=== PATIENT | female | born 1965 | race Caucasian/White ===

== ENCOUNTER 2019-09-02 09:21 | Outpatient (CLI) | payer BC, SELFPAY ==
[2019-09-02 10:25] LABS: Alanine Aminotransferase 18 U/L (4-35); Albumin Level 3.9 g/dL (3.5-5.1); Alkaline Phosphatase 106 U/L (38-126); Aspartate Amino Transferase 19 U/L (14-36); Bilirubin,Total 0.4 mg/dL (0.2-1.3); Blood Urea Nitrogen 35 mg/dL (7-17); Calcium 9.3 mg/dL (8.4-10.2); Carbon Dioxide 29 mmol/L (22-30); Chloride 102 mmol/L (98-107); Cholesterol 194 mg/dL (0-200); Estimated Glomerular Filt Rate 32; Glucose 262 mg/dL (65-105); HDL Direct 38 mg/dL; Potassium 4.3 mmol/L (3.4-5.0); Sodium 139 mmol/L (137-145); Triglycerides 444 mg/dL (<150)
[2019-09-02 10:36] LABS: LDL Cholesterol Direct 61 mg/dL
[2019-09-02 10:47] LABS: Hemoglobin A1C 12.3 % (<5.7)
== END 2019-09-02 09:22 | disposition home or self-care (01) ==
PROVIDERS: PCP Internal Medicine; Visit Provider Nurse Practitioner
DX: E78.5 Hyperlipidemia, unspecified (principal); E11.9 Type 2 diabetes mellitus without complications
CPT/HCPCS: 36415; 80048; 80061; 80076; 83036

== ENCOUNTER 2019-11-02 09:41 | Emergency (ER) | payer BC, SELFPAY ==
[2019-11-02 09:52] VITALS: BP 185/98; PULSE 98; RESP 16; TEMP 36.6; O2SAT 99
--- NOTE | 2019-11-02 10:18 | ED.EXTPRO ---
HPI - Extremity Problem General Chief complaint: Extremity Problem,Nontraumatic Stated complaint: left wrist swollen Time Seen by Provider: 11/02/19 10:06 Source: patient and RN notes reviewed Mode of arrival: ambulatory Limitations: no limitations History of Present Illness HPI Narrative: Patient presents today complaining of 4-day history of swelling and pain to the left wrist. Denies any known injury or trauma. States she thought she may have overused it at work and has been using a splint, taking Aleve, ibuprofen, and icy hot. Currently rates her pain 9/10. Denies numbness or tingling. No history of gout. MD Complaint: extremity pain and extremity swelling Related Data Home Medications Medication Instructions Recorded Confirmed calcium carb-vit D3-minerals 600 1 tablet PO BID 09/08/19 11/02/19 mg calcium-400 unit tablet ferrous sulfate 325 mg (65 mg 325 mg PO DAILY 09/08/19 11/02/19 iron) tablet multivitamin 1 tablet PO DAILY 09/08/19 11/02/19 cyanocobalamin (vitamin B-12) 50 50 mcg PO DAILY 09/17/19 11/02/19 mcg tablet Allergies Allergy/AdvReac Type Severity Reaction Status Date / Time No Known Allergies Allergy Unverified 09/17/19 09:28 Review of Systems Review of Systems: Narrative: CONSTITUTIONAL: Denies body aches, fever, chills, or sweats. EYES: Denies visual changes, redness, or discharge. ENT: Denies rhinorrhea, congestion, sore throat, or otalgia. CARDIOVASCULAR: Denies chest pain, palpitations, or edema. RESPIRATORY: Denies cough or dyspnea. GASTROINTESTINAL: Denies abdominal pain, nausea, vomiting, or diarrhea. GENITOURINARY: Denies dysuria or hematuria. SKIN: Denies rash, itching, or wounds. MUSCULOSKELETAL: Denies back pain, or myalgia.+ Left wrist pain and swelling NEUROLOGIC: Denies headache, numbness, tingling, or weakness. PSYCH: Denies depression or anxiety. [facility] Past Medical History Medical History (Updated 11/02/19 @ 10:19 by Rosangela Méndez, CABLE TELEVISION [employer] TECHNICIAN, ) Blood in stool Diabetes mellitus type 2 with complications Surgical History Surgical History H/O section History of gastric surgery History of hysterectomy Hx of ovarian cystectomy Social History Social History Smoking status: Never smoker Second hand tobacco smoke exposure: No Alcohol intake: never Comments At time of signature, I have reviewed and agree with nursing past medical, surgical, social and family history unless otherwise noted. Please see nursing chart for further information. There is no relevant family history pertinent to the presenting complaint Exam Narrative: Exam Narrative: GENERAL: Well-appearing, well-nourished, and in no acute distress. HEAD: Normocephalic, atraumatic. EYES: EOMI. No redness or drainage. Conjunctivae normal. ENT: Mucous membranes pink and moist. NECK: Normal AROM. CHEST: No respiratory distress. EXTREMITIES: Left wrist: Mild edema and erythema to the left wrist. Fingers are not affected. Symptoms stop at the forearm. Distal sensation intact. Capillary refill normal. Radial pulse normal. Full AROM of wrist and all fingers. SKIN: Warm, dry, no rash. Capillary refill normal. Normal skin turgor. NEURO: No focal deficits. Alert and oriented x3. Gait steady. PSYCH: Normal affect. No signs of depression or anxiety. Course Vital Signs Vital signs: Vital Signs Temperature 97.9 F 11/02/19 09:52 Pulse Rate 98 11/02/19 09:52 Respiratory Rate 16 11/02/19 09:52 Blood Pressure 185/98 H 11/02/19 09:52 Pulse Oximetry 99 11/02/19 09:52 Temperature 97.9 F 11/02/19 09:52 Pulse Rate 98 11/02/19 09:52 Respiratory Rate 16 11/02/19 09:52 Blood Pressure 185/98 H 11/02/19 09:52 Pulse Oximetry 99 11/02/19 09:52 Reviewed. Pt has been instructed to follow up with her PCP regarding her elevated blood pressure today. Suha
== END 2019-11-02 10:25 | disposition home or self-care (01) ==
PROVIDERS: Emergency Provider Nurse Practitioner; PCP Internal Medicine
DX: M10.9 Gout, unspecified (principal); E11.9 Type 2 diabetes mellitus without complications; Z86.73 Personal history of transient ischemic attack (TIA), and cerebral infarction without residual deficits; E78.00 Pure hypercholesterolemia, unspecified; I10 Essential (primary) hypertension; Z98.84 Bariatric surgery status; K21.9 Gastro-esophageal reflux disease without esophagitis; M19.90 Unspecified osteoarthritis, unspecified site; Z87.891 Personal history of nicotine dependence
CPT/HCPCS: 99213; G0463

== ENCOUNTER 2019-11-23 11:06 | Outpatient (CLI) | payer BC, SELFPAY ==
--- NOTE | ~2019-11-23 | XR_ITS ---
XR wrist LT min 3V 11/23/2019 11:40 Indication: Left wrist pain Procedure: 4 views left wrist Comparison: 02/12/2012 Findings: No acute fracture or traumatic malalignment. There is sequela of old chronic triquetral fra cture. No significant soft tissue abnormality. Scaphoid intact. No foreign bodies. Impression: 1: No acute bone or joint abnormality. Reviewed, dictated and finalized at location A. Impression: 1: No acute bone or joint abnormality.
[2019-11-23 11:58] LABS: Uric Acid 8.5 mg/dL (2.5-7.5)
== END 2019-11-23 11:07 | disposition home or self-care (01) ==
PROVIDERS: PCP Internal Medicine; Visit Provider Internal Medicine
DX: M25.539 Pain in unspecified wrist (principal)
CPT/HCPCS: 36415; 73110; 84550

== ENCOUNTER 2019-12-09 08:13 | Outpatient (CLI) | payer BC, SELFPAY ==
[2019-12-09 08:59] LABS: Hemoglobin A1C 11.1 % (<5.7)
[2019-12-09 09:34] LABS: Creatinine Urine 66.7 mg/dL
[2019-12-09 10:36] LABS: Microalbumin Urine Random > 1140.0 mg/L (0-16.7)
== END 2019-12-09 08:14 | disposition home or self-care (01) ==
PROVIDERS: PCP Internal Medicine; Visit Provider Nurse Practitioner
DX: E11.9 Type 2 diabetes mellitus without complications (principal)
CPT/HCPCS: 36415; 82043; 83036

== ENCOUNTER 2020-01-25 13:12 | Emergency (ER) | payer BC, SELFPAY ==
[2020-01-25 13:37] VITALS: BP 116/62; PULSE 110; RESP 16; TEMP 37.3; O2SAT 98
--- NOTE | 2020-01-25 13:53 | ED.GENADULT ---
HPI - General Adult General Chief complaint: Extremity Injury, Upper Stated complaint: left wrist pain/swollen Time Seen by Provider: 01/25/20 13:53 Source: patient Mode of arrival: ambulatory Limitations: no limitations History of Present Illness HPI narrative: 54-year-old female patient presents to the [facility] with complaints of left wrist pain and swelling for the past 3 days. Patient states that she had a flareup like this about 3 months ago and would came here and was diagnosed with gout and then followed up with her doctor and they did an x-ray and continue to treat her for the gout. Patient states that she was also told she has some arthritis to the area. Patient states she tried calling her doctor today but he is currently on vacation. Patient denies any injury to the left wrist within the last couple days patient states it is just been swelling and slightly painful. Patient states she has been taking ibuprofen. And patient also just found out today that her doctor's office did refill her prescription of the colchicine. Related Data Home Medications Medication Instructions Recorded Confirmed calcium carb-vit D3-minerals 600 1 tablet PO BID 09/08/19 01/25/20 mg calcium-400 unit tablet ferrous sulfate 325 mg (65 mg 325 mg PO DAILY 09/08/19 01/25/20 iron) tablet multivitamin 1 tablet PO DAILY 09/08/19 01/25/20 cyanocobalamin (vitamin B-12) 50 50 mcg PO DAILY 09/17/19 01/25/20 mcg tablet Allergies Allergy/AdvReac Type Severity Reaction Status Date / Time No Known Allergies Allergy Unverified 01/25/20 13:38 Review of Systems Review of Systems: Narrative: CONSTITUTIONAL: Denies fever, chills, or sweats. EYES: Denies visual changes, redness, or discharge. ENT: Denies rhinorrhea, congestion, sore throat, or otalgia. CARDIOVASCULAR: Denies chest pain, palpitations, or edema. RESPIRATORY: Denies cough or dyspnea. GASTROINTESTINAL: Denies abdominal pain, nausea, vomiting, or diarrhea. GENITOURINARY: Denies dysuria or hematuria. SKIN: Denies rash or itching. MUSCULOSKELETAL: Denies back pain, joint pain, or myalgia. Positive swelling left wrist x3 days NEUROLOGIC: Denies headache, numbness, or weakness. PSYCHIATRIC: Denies anxiety or depression. [facility] Past Medical History Medical History Blood in stool Diabetes mellitus type 2 with complications Surgical History Surgical History H/O section History of gastric surgery History of hysterectomy Hx of ovarian cystectomy Family History Family History Sibling Patient's sister is in good health Mother Family history of malignant neoplasm of cervix Other Family history of cardiac disorder Social History Social History Smoking status: Never smoker Second hand tobacco smoke exposure: No Alcohol intake: never Comments At the time of my signature I agree with nursing past medical history, surgical, social, and family history. There is no relevant family history pertinent to the presenting complaint. Exam Narrative: Exam Narrative: GENERAL: Well-appearing, well-nourished, and in no acute distress. HEAD: Normocephalic, atraumatic. EYES: PERRLA and EOMI. ENT: Nares clear, no rhinorrhea or epistaxis. Mucous membranes moist. NECK: Supple. No lymphadenopathy CHEST: Clear to auscultation. No respiratory distress. HEART: Regular rate and rhythm. No murmur heard. Normal peripheral pulses. ABDOMEN: Soft, nontender, nondistended, normal active bowel sounds. EXTREMITIES: The L wrist is without obvious asymmetry or deformity when compared to the R wrist. No surface trauma, open wounds, swelling, or obvious deformity. There is some swelling noted to the left wrist as compared to the right wrist. The swelling does extend up to all 5
== END 2020-01-25 14:06 | disposition home or self-care (01) ==
PROVIDERS: Emergency Provider Nurse Practitioner Family; PCP Internal Medicine
DX: M10.9 Gout, unspecified (principal); E11.8 Type 2 diabetes mellitus with unspecified complications
CPT/HCPCS: 99213; G0463

== ENCOUNTER 2020-02-02 11:19 | Emergency (ER) | payer BC, SELFPAY ==
[2020-02-02 11:50] VITALS: BP 153/80; PULSE 97; RESP 16; TEMP 36.8; O2SAT 97
--- NOTE | 2020-02-02 12:35 | ED.EYEPROB ---
HPI - Eye Problem General Chief complaint: Eye Problems Stated complaint: Redness of eye Time Seen by Provider: 02/02/20 12:31 Source: patient and RN notes reviewed Mode of arrival: ambulatory Limitations: no limitations History of Present Illness HPI Narrative: Patient presents today complaining of a 2-day history of itchiness and crustiness in her left eye with yellow drainage. Last night she noted redness to the eye as well. Denies vision changes or photophobia. Denies any recent illness. States she has been rubbing and scratching her eye frequently. She has tried no cyrq-xiz-lpsqwed treatment prior to arrival. No foreign body sensation. MD chief complaint: eye redness Related Data Home Medications Medication Instructions Recorded Confirmed calcium carb-vit D3-minerals 600 1 tablet PO BID 09/08/19 01/25/20 mg calcium-400 unit tablet ferrous sulfate 325 mg (65 mg 325 mg PO DAILY 09/08/19 01/25/20 iron) tablet multivitamin 1 tablet PO DAILY 09/08/19 01/25/20 cyanocobalamin (vitamin B-12) 50 50 mcg PO DAILY 09/17/19 01/25/20 mcg tablet Allergies Allergy/AdvReac Type Severity Reaction Status Date / Time No Known Allergies Allergy Unverified 01/25/20 13:38 Review of Systems Review of Systems: Narrative: CONSTITUTIONAL: Denies body aches, fever, chills, or sweats. EYES: Denies visual changes. +Redness and discharge from the left eye ENT: Denies rhinorrhea, congestion, sore throat, or otalgia. CARDIOVASCULAR: Denies chest pain, palpitations, or edema. RESPIRATORY: Denies cough or dyspnea. GASTROINTESTINAL: Denies abdominal pain, nausea, vomiting, or diarrhea. GENITOURINARY: Denies dysuria or hematuria. SKIN: Denies rash, itching, or wounds. MUSCULOSKELETAL: Denies back pain, joint pain, or myalgia. NEUROLOGIC: Denies headache, numbness, tingling, or weakness. PSYCH: Denies depression or anxiety. [facility] Social History Social History Smoking status: Never smoker Second hand tobacco smoke exposure: No Alcohol intake: never Comments At time of signature, I have reviewed and agree with nursing past medical, surgical, social and family history unless otherwise noted. Please see nursing chart for further information. There is no relevant family history pertinent to the presenting complaint Exam Narrative: Exam Narrative: GENERAL: Well-appearing, well-nourished, and in no acute distress. HEAD: Normocephalic, atraumatic. EYES: EOMI. PERRL. Eye: Yellow purulent discharge and matting of the eyelashes noted. Conjunctive is erythematous. Patient also has a subconjunctival hemorrhage that takes up the medial half of her eye. Eyelids are normal. Right eye normal. ENT: Mucous membranes pink and moist. NECK: Normal AROM. CHEST: No respiratory distress. EXTREMITIES: Normal range of motion. No edema. SKIN: Warm, dry, no rash. Capillary refill normal. Normal skin turgor. NEURO: No focal deficits. Alert and oriented x3. Gait steady. PSYCH: Normal affect. No signs of depression or anxiety. Course Vital Signs Vital signs: Vital Signs Temperature 98.3 F 02/02/20 11:50 Pulse Rate 97 02/02/20 11:50 Respiratory Rate 16 02/02/20 11:50 Blood Pressure 153/80 H 02/02/20 11:50 Pulse Oximetry 97 02/02/20 11:50 Temperature 98.3 F 02/02/20 11:50 Pulse Rate 97 02/02/20 11:50 Respiratory Rate 16 02/02/20 11:50 Blood Pressure 153/80 H 02/02/20 11:50 Pulse Oximetry 97 02/02/20 11:50 Reviewed. Pt has been instructed to follow up with her PCP regarding her elevated blood pressure today. MDM - Eye Problem Differential Diagnosis Differential diagnosis: Likely corneal abrasion, conjunctivitis, periorbital cellulitis, subconjunctival hemorrhage and corneal ulcer Critical Care Time Critical Care Time Critical Care Time: No Discharge Plan Discharge Clinical Impression: Subconjunctival hemorrhage of left eye Conjunctiv
== END 2020-02-02 12:45 | disposition home or self-care (01) ==
PROVIDERS: Emergency Provider Nurse Practitioner; PCP Internal Medicine
DX: H11.32 Conjunctival hemorrhage, left eye (principal); H10.32 Unspecified acute conjunctivitis, left eye; Z86.73 Personal history of transient ischemic attack (TIA), and cerebral infarction without residual deficits; I20.9 Angina pectoris, unspecified; E78.00 Pure hypercholesterolemia, unspecified; I10 Essential (primary) hypertension; Z87.891 Personal history of nicotine dependence; Z98.84 Bariatric surgery status; K21.9 Gastro-esophageal reflux disease without esophagitis; M19.90 Unspecified osteoarthritis, unspecified site; E11.9 Type 2 diabetes mellitus without complications
CPT/HCPCS: 99213; G0463

== ENCOUNTER 2020-03-30 08:39 | Outpatient (CLI) | payer BC, SELFPAY ==
--- NOTE | ~2020-03-30 | DEXA_ITS ---
Bone Density Report Name: Karla Talbot Age: 54 Sex: Female Ethnicity: White Date of : 1965 Indication: postmenopausal; hysterectomy; Referring Provider: Natacha Toney Study: Bone densitometry was performed. Exam Date: March 30, 2020 Accession number: [id number] Bone Density: Region BMD T-score Z-score Classification AP Spine (L1-L4) 1.410 3.3 4.3 Normal Femoral Neck (Left) 1.020 1.5 2.5 Normal Total Hip (Left) 1.141 1.6 2.2 Normal Total Hip Bilateral Avg 1.189 2.0 2.6 Normal Femoral Neck (Right) 1.117 2.4 3.4 Normal Total Hip (Right) 1.236 2.4 3.0 Normal World Health Organization criteria for BMD impression classify patients as: Normal (T-score at or above -1.0), Osteopenia (T-score between -1.0 and -2.5), or Osteoporosis (T-score at or below -2.5). 10-year Fracture Risk: FRAX not reported because: All T-scores for Spine Total, Hip Total, Femoral Neck at or above -1.0 Clinical Information Provided by Patient: Has used the following medications: Calcium Has the following medical conditions: Hysterectomy, gastric bypass Patient maximum height was 65 Menopause Age: 52 No regular weight bearing exercise Drinks caffeinated beverages Onset of menses at age 18 Number of children 2 Impression: The patient has normal bone mass. Discussion: LOW RISK OF FRACTURE; BONE DENSITY IS WELL ABOVE THE MINIMUM DESIRABLE LEVEL AND ABOVE AVERAGE FOR AGE AND SEX AT ALL SKELETAL SITES TESTED. This person's bone density is above expected limits for age and sex. This is rarely clinically significant, but should be pursued if there are significant musculoskeletal complaints. The patient should follow a healthful lifestyle (good nutrition with adequate calcium and vitamin D, and appropriate weight-bearing exercise). Follow-Up: Consider repeating this study in 5 years or sooner if there is some new clinical indication. Reported by: KEREN on 03/30/2020 8:12:00 AM. Reviewed, dictated and finalized at location AJhonatan ARCINIEGA
[2020-03-30 08:59] LABS: Basophils Absolute Auto 0.1 K/mm3 (0.0-0.1); Basophils Percent Auto 0.7 % (0.2-1.2); Eosinophils Absolute Auto 0.1 K/mm3 (0-0.3); Eosinophils Percent Auto 1.2 % (0-4.4); Hematocrit 32.7 % (37.0-47.0); Hemoglobin 10.5 g/dL (12.0-15.0); Immature Granulocyte Absolute 0.06 K/mm3 (0.00-0.031); Immature Granulocyte Percent A 0.8 % (0-0.5); Lymphocytes Absolute Auto 1.86 K/mm3 (0.9-3.2); Lymphocytes Percent Auto 24.9 % (18.3-44.2); Mean Corpuscular HGB Conc 32.1 g/dl (32-36); Mean Corpuscular Hemoglobin 28.4 pg (26-34); Mean Corpuscular Volume 88.4 fl (80-100); Mean Platelet Volume 12.7 fl (7.4-10.4); Monocytes Absolute Auto 0.7 K/mm3 (0.1-0.6); Monocytes Percent Auto 8.7 % (2.6-8.5); Neutrophils Absolute Auto 4.8 K/mm3 (1.3-6.7); Neutrophils Percent Auto 63.7 % (45.5-73.1); Platelet Count Result 124 k/mm3 (150-375); Red Cell Distribution Width 13.4 % (11.5-14.5); White Blood Count 7.5 K/mm3 (4.5-10.0)
[2020-03-30 09:10] LABS: Uric Acid 8.8 mg/dL (2.5-7.5)
[2020-03-30 09:11] LABS: Hemoglobin A1C 9.7 % (<5.7)
[2020-03-30 09:13] LABS: Alanine Aminotransferase 13 U/L (4-35); Albumin Level 4.2 g/dL (3.5-5.1); Alkaline Phosphatase 104 U/L (38-126); Anion Gap 8 mmol/L (8-16); Aspartate Amino Transferase 16 U/L (14-36); Bilirubin,Total 0.4 mg/dL (0.2-1.3); Blood Urea Nitrogen 43 mg/dL (7-17); Calcium 9.4 mg/dL (8.4-10.2); Carbon Dioxide 24 mmol/L (22-30); Chloride 106 mmol/L (98-107); Cholesterol 228 mg/dL (0-200); Estimated Glomerular Filt Rate 28; Glucose 281 mg/dL (65-105); HDL Direct 37 mg/dL; Potassium 4.1 mmol/L (3.4-5.0); Sodium 138 mmol/L (137-145)
[2020-03-30 09:19] LABS: Triglycerides 691 mg/dL (<150)
[2020-03-30 09:21] LABS: LDL Cholesterol Direct 43 mg/dL
[2020-03-30 09:35] LABS: Iron 77 ug/dL (37-170)
[2020-03-30 09:37] LABS: Creatinine Urine 53.7 mg/dL
[2020-03-30 09:45] LABS: Percent Iron Saturation 27 % (20-50)
[2020-03-30 10:43] LABS: MALB Creatinine Ratio 1485.1 mg/g (0-30); Microalbumin Urine Random 797.5 mg/L (0-16.7)
== END 2020-03-30 08:40 | disposition home or self-care (01) ==
PROVIDERS: PCP Internal Medicine; Referring Provider Internal Medicine; Visit Provider Nurse Practitioner
DX: Z78.0 Asymptomatic menopausal state (principal); E79.0 Hyperuricemia without signs of inflammatory arthritis and tophaceous disease; E11.9 Type 2 diabetes mellitus without complications; E78.5 Hyperlipidemia, unspecified; D64.9 Anemia, unspecified
CPT/HCPCS: 36415; 77080; 80053; 80061; 82043; 83036; 83540; 83550; 84550; 85025

== ENCOUNTER 2020-06-22 09:57 | Outpatient (CLI) | payer BC, SELFPAY ==
[2020-06-22 10:44] LABS: Basophils Percent Auto 0.4 % (0.2-1.2); Eosinophils Absolute Auto 0.1 K/mm3 (0-0.3); Eosinophils Percent Auto 1.7 % (0-4.4); Hematocrit 31.5 % (37.0-47.0); Hemoglobin 10.1 g/dL (12.0-15.0); Immature Granulocyte Absolute 0.04 K/mm3 (0.00-0.031); Immature Granulocyte Percent A 0.5 % (0-0.5); Lymphocytes Absolute Auto 1.82 K/mm3 (0.9-3.2); Lymphocytes Percent Auto 24.3 % (18.3-44.2); Mean Corpuscular HGB Conc 32.1 g/dl (32-36); Mean Corpuscular Hemoglobin 28.1 pg (26-34); Mean Corpuscular Volume 87.7 fl (80-100); Mean Platelet Volume 12.3 fl (7.4-10.4); Monocytes Absolute Auto 0.6 K/mm3 (0.1-0.6); Monocytes Percent Auto 8.1 % (2.6-8.5); Neutrophils Absolute Auto 4.9 K/mm3 (1.3-6.7); Platelet Count Result 134 k/mm3 (150-375); Red Blood Count 3.59 M/mm3 (4.2-5.4); Red Cell Distribution Width 13.2 % (11.5-14.5); White Blood Count 7.5 K/mm3 (4.5-10.0)
[2020-06-22 11:34] LABS: Iron 44 ug/dL (37-170)
[2020-06-22 11:37] LABS: Alanine Aminotransferase 15 U/L (4-35); Albumin Level 3.8 g/dL (3.5-5.1); Alkaline Phosphatase 115 U/L (38-126); Anion Gap 7 mmol/L (8-16); Aspartate Amino Transferase 19 U/L (14-36); Bilirubin,Total 0.7 mg/dL (0.2-1.3); Blood Urea Nitrogen 47 mg/dL (7-17); Calcium 9.9 mg/dL (8.4-10.2); Carbon Dioxide 30 mmol/L (22-30); Chloride 101 mmol/L (98-107); Cholesterol 184 mg/dL (0-200); Estimated Glomerular Filt Rate 28; Glucose 262 mg/dL (65-105); HDL Direct 34 mg/dL; Potassium 4.5 mmol/L (3.4-5.0); Sodium 138 mmol/L (137-145); Triglycerides 457 mg/dL (<150)
[2020-06-22 11:50] LABS: LDL Cholesterol Direct 44 mg/dL
[2020-06-22 11:58] LABS: Percent Iron Saturation 14 % (20-50)
[2020-06-22 12:33] LABS: Hemoglobin A1C 10.2 % (<5.7)
== END 2020-06-22 09:58 | disposition home or self-care (01) ==
PROVIDERS: PCP Internal Medicine; Visit Provider Nurse Practitioner
DX: D50.9 Iron deficiency anemia, unspecified (principal); E53.8 Deficiency of other specified B group vitamins; E11.8 Type 2 diabetes mellitus with unspecified complications; E78.5 Hyperlipidemia, unspecified
CPT/HCPCS: 36415; 80053; 80061; 82607; 83036; 83540; 83550; 85025

== ENCOUNTER 2020-07-01 11:00 | Outpatient (CLI) | payer BC, SELFPAY ==
--- NOTE | ~2020-07-01 | XR_ITS ---
XR femur RT min 2V DATE: 07/01/2020 11:24 INDICATION: Right thigh pain and swelling. No known injury. TECHNIQUE: AP and lateral views COMPARISON: None FINDINGS: No fracture or dislocation, periosteal reaction or bone destruction of the right femur. The re is right hip joint space narrowing. There is mild periarticular spurring at the patellofemoral bertha nt. IMPRESSION: Degenerative changes at the right hip and knee joint No fracture or dislocation or bone destruction of the right femur Reviewed, dictated and finalized at location A. BREEDER
== END 2020-07-01 11:01 | disposition home or self-care (01) ==
PROVIDERS: PCP Internal Medicine; Visit Provider Nurse Practitioner
DX: M17.11 Unilateral primary osteoarthritis, right knee (principal); M16.11 Unilateral primary osteoarthritis, right hip
CPT/HCPCS: 73552

== ENCOUNTER 2020-07-13 13:24 | Outpatient (CLI) | payer BC, SELFPAY ==
--- NOTE | ~2020-07-13 | US_ITS ---
EXAMINATION: US venous doppler LE RT EXAM DATE: 07/13/2020 13:49 INDICATION: M79.651 - Pain in right thigh . TECHNIQUE: Multiple grayscale, color flow and Doppler images of the right lower extremity deep venous system were obtained and reviewed. There is no prior study for comparison. FINDINGS: The right common femoral, femoral and profunda veins demonstrate normal color flow, respira tory variation, augmentation and compressibility. Compressibility, color flow confirmed within the r ight popliteal, posterior tibial, peroneal, and greater saphenous veins. IMPRESSION: 1. No right lower extremity deep venous thrombosis. Reviewed, dictated and finalized at location B. ICE PHYSICIAN
== END 2020-07-13 13:25 | disposition home or self-care (01) ==
LOC: ANHIMG 13:29
PROVIDERS: PCP Internal Medicine; Visit Provider Nurse Practitioner
DX: M79.651 Pain in right thigh (principal)
CPT/HCPCS: 93971

== ENCOUNTER 2020-08-22 07:55 | Emergency (ER) | payer BC, SELFPAY ==
[2020-08-22 08:04] VITALS: BP 184/95; PULSE 77; RESP 17; TEMP 35.8; O2SAT 100
--- NOTE | 2020-08-22 08:11 | ED.LOWEXIN ---
HPI - Extremity Injury (Lower) General Chief Complaint: Extremity Injury, Lower Stated Complaint: right leg swelling Time Seen by Provider: 08/22/20 08:11 Source: patient Mode of arrival: ambulatory Limitations: no limitations History of Present Illness HPI Narrative: Patient is 54 years old white female, morbidly obese complaining of chronic pain at the back of the right thigh since May 2020. Patient was seen numerous of time by her family physician with negative work-up including blood work-up, x-ray of the right lower extremity, venous Doppler, and CAT scan. Patient been doing physical therapy for the last 3 weeks, last 1 was 5 days ago, today patient feels like she cannot go to work to be in standing position for 8 hours. Patient works at [employer] 8 hours a day. Patient denies recent injury. Patient on tramadol and Flexeril with subsequent improvement immediately but the pain keeps coming back. Patient does not take anti-inflammatory medication. Related Data Home Medications Medication Instructions Recorded Confirmed calcium carb-vit D3-minerals 600 1 tablet PO BID 09/08/19 06/22/20 mg calcium-400 unit tablet ferrous sulfate 325 mg (65 mg 325 mg PO DAILY 09/08/19 06/22/20 iron) tablet multivitamin 1 tablet PO DAILY 09/08/19 06/22/20 cyanocobalamin (vitamin B-12) 50 50 mcg PO DAILY 09/17/19 06/22/20 mcg tablet Allergies Allergy/AdvReac Type Severity Reaction Status Date / Time No Known Allergies Allergy Verified 08/22/20 08:10 Review of Systems Review of Systems: Narrative: CONSTITUTIONAL: Denies fever, chills, or sweats. EYES: Denies visual changes, redness, or discharge. ENT: Denies rhinorrhea, congestion, sore throat, or otalgia. CARDIOVASCULAR: Denies chest pain, palpitations, or edema. RESPIRATORY: Denies cough or dyspnea. GASTROINTESTINAL: Denies abdominal pain, nausea, vomiting, or diarrhea. GENITOURINARY: Denies dysuria or hematuria. SKIN: Denies rash or itching. MUSCULOSKELETAL: Chronic right thigh pain NEUROLOGIC: Denies headache, numbness, or weakness. PSYCHIATRIC: Denies anxiety or depression. [facility] Past Medical History Medical History Blood in stool Chest discomfort Diabetes mellitus type 2 with complications Postmenopausal Right thigh pain Screening for breast cancer Screening for colon cancer Screening for osteoporosis Vitamin D deficiency, unspecified Surgical History Surgical History H/O section History of gastric surgery History of hysterectomy Hx of ovarian cystectomy Family History Family History Sibling Patient's sister is in good health Mother Family history of malignant neoplasm of cervix Other Family history of cardiac disorder Social History Social History Smoking status: Never smoker Second hand tobacco smoke exposure: No Alcohol intake: never Gender identity (if verbalized by the patient): Female Exam Narrative: Exam Narrative: General appearance: Well-developed, well-nourished Skin: Normal color Head: Normocephalic, nontraumatic Eyes: Clear conjunctiva ENT: Oropharynx normal, ears normal, nose normal Neck: Supple, nontender Chest and respiratory: Airway patent, no respiratory distress, no accessory muscle use Heart: Regular rate/rhythm Abdomen: Soft, nontender, no organomegaly, quiet bowel sounds Vascular: Normal peripheral pulses, normal capillary refill. Musculoskeletal: Diffuse tenderness right thigh posterior medially, no bruises, no swelling, no rash Neurologic: Alert and oriented ?3, OPHTHALMOLOGIST is normal as tested, no gross motor deficit
[2020-08-22] MEDS: KETOROLAC (*BKC) 60 MG/2 ML VIAL IM (08:57)
[2020-08-22 09:02] VITALS: BP 170/90; PULSE 77; RESP 17; O2SAT 99
== END 2020-08-22 09:04 | disposition home or self-care (01) ==
PROVIDERS: Emergency Provider Emergency Medicine; PCP Internal Medicine
DX: M79.651 Pain in right thigh (principal); G89.29 Other chronic pain; E66.01 Morbid (severe) obesity due to excess calories; Z68.41 Body mass index [BMI] 40.0-44.9, adult; E11.9 Type 2 diabetes mellitus without complications
CPT/HCPCS: 96372; 99283; J1885

== ENCOUNTER 2020-10-05 10:00 | Outpatient (RCR) | payer BC, SELFPAY ==
--- NOTE | 2020-07-27 11:10 | PTOPEVAL ---
PHYSICAL THERAPY EVALUATION AND PLAN OF CARE 07-27-2020 Thank you for referring Karla Talbot to [facility], for the diagnosis of R thigh pain. She is scheduled for treatment 1-2 x/week for 5 weeks. Please review, sign, date and return this plan of care MAGEN. I agree with and certify that the following plan of care is medically necessary. 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 Respiratory History Hx Other Respiratory Disorders Yes: previous smoker Gastrointestinal History Hx Gastric Bypass Surgery Yes: 2011 Hx Gastroesophageal Reflux Disease Yes Hx Other Gastrointestinal Disorders Yes: occassional diarrhea Musculoskeletal History Hx Arthritis Yes: back, gout,knees, hands Endocrine History Hx Diabetes Yes: type 2, meds HEENT History Hx Tonsillectomy Yes Hx Other HEENT Disorders Yes: bilateral hearing aids, and glasses Reproductive History Hx Section Yes Hx Hysterectomy Yes Evaluation Information Problem Diagnosis R thigh pain Onset end May 2020 Subjective Information gradual increase in pain, no Query Text:As Reported By Patient/ trauma or injury to leg Family Diagnostic Tests X-Rays For This Problem Yes: OA R hip&knee; periarticular spur pat-fem joint Other Tests For This Problem Yes: doppler negative DVT Previous Treatments Previous Treatments For This Problem no PT in past Prior Level of Function Activity Level (Last 3 Months) Occupation At [employer]- stand, walking, active, 40 hr/week Hand Dominance Right Activity of Daily Living Ability Independent Indoor/Home Mobility Independent Community Mobility Independent Stairs Ability Independent Functional Cognition (Planning, Shopping Independent , Taking Medications) Cooking Yes Cleaning Yes Laundry Yes Shopping
--- NOTE | 2020-08-03 09:04 | PCPTNOTE ---
pt called and canceled today's appt due to having a dr appt;
--- NOTE | 2020-08-17 09:08 | PCPTNOTE ---
Patient called & cancelled scheduled appointment this date due to car won't start.
--- NOTE | 2020-08-31 10:15 | PTOPEVAL ---
PHYSICAL THERAPY RE-EVALUATION AND UPDATED PLAN OF CARE 08-31-20 Refer to the clinical summary below for a comparison of the initial evaluation to today's reevaluation. Ms. Talbot continues to have pain in her R LE/knee, that has shifted from the anterior thigh/quad to posterior-lateral/hamstring area, decreased knee extension ROM and strength, with decreased walking tolerance. Continue PT 1-2 x/week for 5 weeks. Thank you for referring Karla Talbot to [facility] Please review, sign, date and return this updated plan of care [facility]. I agree with and certify that the following plan of care is medically necessary. Referring Physician Date Attending Provider: Natacha Toney, MARKC Document 08/31/20 09:00 SUNDAY (Rec: 08/31/20 09:34 REECENOHEMYBETTINA [id number]) Assessment Status Re-evaluation Subjective Information Karla reports: pain worse and Query Text:As Reported By Patient/ went to ER 2 days ago- got Family steroid shot and ibuprofen, saw yesterday and off work for one week; been resting leg; walking still painful; using biofreeze and hot bath helps pain; pain moved from front of leg to more in the back of leg now; doing exercises at home. Pain Assessment Timing of Pain Assessment Timing of Pain Assessment Assessment Pain Scale Pain Scale Used Numeric (1 - 10) Self Report Pain Assessment Right Thigh(s) Reported Pain Level 5 Pain Frequency Acute Lowest Pain Intensity 4 Greatest Pain Intensity 8 Pain Aggravating Factors Walking,Weight Bearing/ Standing Other Pain Aggravating Factors woke up in AM with pain; walk/ stand tolerance 2 hours Pain Behaviors Anxious,Grimacing,Guarding Pain Score Pain Score 5: Self Report Interventions Used Interventions Used By Clinicians Heat,Ice,Medication Other Alleviating Interventions biofreeze; alternate heat/ice; is taking tramadol and cyclobenzaprine Lower Extremity Range of Motion General Lower Extremity Range of Motion Gross Lower Extremity Range of Motion sitting R knee active (-20') Comments to 100'- pain increase with extension Lower Extremity Muscle Strength Testing General Lower Extremity Strength Gross Lower Extremity Strength R LE: side lying hip abduction x 10 reps due to increase knee pain; prone: hip extension 10 reps and knee flexion x 15 reps- stop w
--- NOTE | 2020-09-07 09:54 | PCPTNOTE ---
pt called and canceled today's appt due to bad weather;
--- NOTE | 2020-10-05 10:39 | PTOPEVAL ---
PHYSICAL THERAPY RE-EVALUATION AND UPDATED PLAN OF CARE 10-05-20 Refer to the clinical summary below, for her status compared to the last reevaluation. Continue PT treatment 1x/week for 5 weeks, due to her work schedule, can only attend 1x/week. Thank you for referring Karla Talbot to [facility].? Please review, sign, date and return this updated plan of care [facility]. I agree with and certify that the following plan of care is medically necessary. Referring Physician Date Attending Provider: ISAURA Mendenhall Document 10/05/20 10:04 SUNDAY (Rec: 10/05/20 10:39 SUNDAY [id number]) Assessment Status Re-evaluation Subjective Information Karla reports: have been Query Text:As Reported By Patient/ doing her home exercises, leg Family is better and want to continue therapy. Pain Assessment Timing of Pain Assessment Timing of Pain Assessment Assessment Pain Scale Pain Scale Used Numeric (1 - 10) Self Report Pain Assessment Right Thigh(s) Reported Pain Level 4 Pain Frequency Chronic,Continuous Lowest Pain Intensity 4 Greatest Pain Intensity 8 Pain Aggravating Factors Walking,Weight Bearing/ Standing Other Pain Aggravating Factors working/ standing 4 hours Pain Score Pain Score 4: Self Report Additional Pain Score Comments electrical stim helped after last time, eased the muscle/ pointed ITB; Interventions Used Interventions Used By Clinicians Education Pain Relief Interventions Used By Medication Patient Other Alleviating Interventions aspirin; Lower Extremity Range of Motion General Lower Extremity Range of Motion Gross Lower Extremity Range of Motion in sitting: R knee active ROM Comments : 0' to 95'- increase pain with flexion--pointed to distal ITB; Lower Extremity Muscle Strength Testing General Lower Extremity Strength Gross Lower Extremity Strength R LE: side lying hip abduction x 20 reps; prone knee flexion x 20 reps; hip extension x 15 reps--decreased stability over trunk and hips ; stretching in supine: piriformis stretch R increase pain ITB/ L no pain; anterior hip/quad with leg over edge of mat, trunk rotation; Posture Posture Standing Position Posture Evaluation View Posterior Shoulder Posture (L) Rounded,(R) Rounded Arm Pos
--- NOTE | 2020-10-18 11:44 | PCPTNOTE ---
This treatment is being continued on visit number [id number]; Please see documentation on both accounts to view progress. Completed interventions, outcomes, and problems have been marked as Inactive to facilitate the copying of the Care plan routine for recurring accounts.
== END 2020-10-18 11:21 | disposition home or self-care (01) ==
LOC: ANHPT 10:00
PROVIDERS: PCP Internal Medicine; Visit Provider Nurse Practitioner
DX: M79.651 Pain in right thigh (principal)
CPT/HCPCS: 97014; 97110; 97140; 97161; G0283

== ENCOUNTER 2020-11-16 09:00 | Outpatient (RCR) | payer BC, SELFPAY ==
--- NOTE | 2020-10-18 11:55 | PCPTNOTE ---
This treatment is being continued from previous visit number [id number]. Please see documentation on both accounts to view progress. Completed interventions, outcomes, and problems have been marked as Inactive to facilitate the copying of the Care plan routine for recurring accounts.
--- NOTE | 2020-10-26 07:36 | PCPTNOTE ---
Patient called & cancelled scheduled appointment this date due to not feeling well.
--- NOTE | 2020-11-09 08:56 | PCPTNOTE ---
Patient called & cancelled scheduled appointment this date due to severe headache.
--- NOTE | 2020-11-16 09:44 | PTOPEVAL ---
PHYSICAL THERAPY DISCHARGE 11-16-20 Refer to the clinical summary below for her status at discharge. The goals were achieved. Discharge PT at this time. Thank you for referring Karla Talbot to [facility].? Please review, sign, date and return this Discharge summary [facility]. I agree with and certify that the following plan of care is medically necessary. Referring Physician Date Attending Provider: Natacha Toney, KAITLYNN-C Document 11/16/20 09:10 SUNDAY (Rec: 11/16/20 09:44 SUNDAY [id number]) Assessment Status Discharge Subjective Information Karla reports: leg is better, Query Text:As Reported By Patient/ not hurting; doing exercises Family without any problems; agree to discharge from therapy. Pain Assessment Timing of Pain Assessment Timing of Pain Assessment Assessment Pain Scale Pain Scale Used Numeric (1 - 10) Self Report Pain Assessment Lower Back Reported Pain Level 4 Right Thigh(s) Reported Pain Level 0 Pain Frequency Chronic Pain Score Pain Score Self Report Additional Pain Score Comments no pain in R leg fell at work last week, getting something off shelf and turned with it, and fell; doing OK and co worker helped me up off floor; can stand and work 6-8 hours without pain; Interventions Used Interventions Used By Clinicians Exercise Lower Extremity Range of Motion General Lower Extremity Range of Motion Gross Lower Extremity Range of Motion R knee active ROM: 0-120' Comments without pain prone knee flexion stretch R 110'; supine stretch hamstring with SLR to 70'; Lower Extremity Muscle Strength Testing General Lower Extremity Strength Gross Lower Extremity Strength standing with 1 UE hold: 3# ankle wt: hip abduction x 15 reps; knee flexion x 15 reps; hip extension x 15 reps; Gait Assessment 2 Minute Walk Total Distance Walked (feet) 450 2 Minute Walk Gait Speed Score (feet/ 3.75 second) Number of Breaks Required 0 2 Minute Walk Test Comments muscles sore from walking fast Rehab Teaching Rehab Teaching Teaching Topic Rehab Teaching Topic Components Body Mechanics,Diagnosis, Exercise,Home Program As Pertains To Plan of Care Discussion Recipient Patient Learning Preferences Audio,Demonstration,Discussion
== END 2020-11-16 14:22 | disposition home or self-care (01) ==
LOC: ANHPT 09:00
PROVIDERS: PCP Internal Medicine; Visit Provider Nurse Practitioner
DX: M79.651 Pain in right thigh (principal)
CPT/HCPCS: 97014; 97110; 97140; G0283

== ENCOUNTER 2020-12-14 08:05 | Outpatient (CLI) | payer BC, SELFPAY ==
[2020-12-14 08:22] LABS: Basophils Absolute Auto 0.1 K/mm3 (0.0-0.1); Basophils Percent Auto 0.6 % (0.2-1.2); Eosinophils Absolute Auto 0.1 K/mm3 (0-0.3); Eosinophils Percent Auto 1.8 % (0-4.4); Hematocrit 30.4 % (37.0-47.0); Hemoglobin 9.7 g/dL (12.0-15.0); Immature Granulocyte Absolute 0.04 K/mm3 (0.00-0.031); Immature Granulocyte Percent A 0.5 % (0-0.5); Lymphocytes Absolute Auto 2.23 K/mm3 (0.9-3.2); Mean Corpuscular HGB Conc 31.9 g/dl (32-36); Mean Corpuscular Volume 87.6 fl (80-100); Mean Platelet Volume 12.6 fl (7.4-10.4); Monocytes Absolute Auto 0.8 K/mm3 (0.1-0.6); Monocytes Percent Auto 9.4 % (2.6-8.5); Neutrophils Absolute Auto 4.8 K/mm3 (1.3-6.7); Neutrophils Percent Auto 59.7 % (45.5-73.1); Platelet Count Result 140 k/mm3 (150-375); Red Blood Count 3.47 M/mm3 (4.2-5.4); Red Cell Distribution Width 13.5 % (11.5-14.5)
[2020-12-14 08:31] LABS: Alanine Aminotransferase 13 U/L (4-35); Albumin Level 3.8 g/dL (3.5-5.1); Alkaline Phosphatase 90 U/L (38-126); Anion Gap 6 mmol/L (8-16); Aspartate Amino Transferase 19 U/L (14-36); Bilirubin,Total 0.5 mg/dL (0.2-1.3); Blood Urea Nitrogen 48 mg/dL (7-17); Calcium 9.8 mg/dL (8.4-10.2); Carbon Dioxide 29 mmol/L (22-30); Chloride 106 mmol/L (98-107); Cholesterol 198 mg/dL (0-200); Estimated Glomerular Filt Rate 25; Glucose 254 mg/dL (65-105); HDL Direct 38 mg/dL; Potassium 4.7 mmol/L (3.4-5.0); Sodium 141 mmol/L (137-145); Triglycerides 351 mg/dL (<150)
[2020-12-14 08:40] LABS: Hemoglobin A1C 10.3 % (<5.7)
[2020-12-14 08:42] LABS: LDL Cholesterol Direct 56 mg/dL
[2020-12-14 09:00] LABS: Creatinine Urine 37.1 mg/dL
[2020-12-14 09:16] LABS: Vitamin D 25 Hydroxy 22.4 ng/mL
[2020-12-14 10:03] LABS: Iron 73 ug/dL (37-170); Percent Iron Saturation 28 % (20-50)
== END 2020-12-14 08:06 | disposition home or self-care (01) ==
PROVIDERS: PCP Internal Medicine; Visit Provider Nurse Practitioner
DX: E78.5 Hyperlipidemia, unspecified (principal); E55.9 Vitamin D deficiency, unspecified; Z78.0 Asymptomatic menopausal state; E53.8 Deficiency of other specified B group vitamins; E11.8 Type 2 diabetes mellitus with unspecified complications; D50.9 Iron deficiency anemia, unspecified
CPT/HCPCS: 36415; 80053; 80061; 82043; 82306; 82607; 83036; 83540; 83550; 85025

== ENCOUNTER 2021-01-26 10:03 | Outpatient (CLI) | payer BC, SELFPAY ==
[2021-01-26 11:20] LABS: Hematocrit 30.3 % (37.0-47.0); Hemoglobin 9.5 g/dL (12.0-15.0); Mean Corpuscular HGB Conc 31.4 g/dl (32-36); Mean Corpuscular Hemoglobin 27.9 pg (26-34); Mean Corpuscular Volume 88.9 fl (80-100); Mean Platelet Volume 12.8 fl (7.4-10.4); Platelet Count Result 148 k/mm3 (150-375); Red Blood Count 3.41 M/mm3 (4.2-5.4); Red Cell Distribution Width 13.9 % (11.5-14.5); White Blood Count 9.1 K/mm3 (4.5-10.0)
[2021-01-26 11:27] LABS: Add Urine Microscopic? YES; Appearance Urine Cloudy (Clear); Bilirubin Urine Negative (Negative); Blood Urine Negative (Negative); Color Urine Yellow (Yellow); Glucose Urine UA 3+ mg/dL (Negative); Ketones Urine Negative (Negative); Leukocyte Esterase Ur Negative LEU/UL (Negative); Mucus Urine Rare /lpf; Nitrate Urine Negative (Negative); Protein Urine 3+ mg/dL (Negative); RBC Urine 0-2 /hpf (0-2); Specific Grav Ur 1.012 (1.001-1.035); Squamous Epithelial Cell Urine Many /hpf (Few); Urobilinogen Urine Negative mg/dL (<2.0)
[2021-01-26 12:23] LABS: Iron 45 ug/dL (37-170)
[2021-01-26 12:33] LABS: Percent Iron Saturation 17 % (20-50)
[2021-01-26 12:38] LABS: Creatinine Urine 61.8 mg/dL
[2021-01-26 13:48] LABS: Erythrocyte Sedimentation Rate 127 mm/hr (0-20)
[2021-01-26 13:52] LABS: Total Protein Urine Random 350 mg/dL; Ur Ttl Prot Creatinine Ratio 5.66 mg/mg (0-0.20)
[2021-01-27 06:26] LABS: Complement C3 136 mg/dL (88-165)
[2021-01-27 09:08] LABS: Albumin Level 3.7 g/dL (3.5-5.1); Anion Gap 14 mmol/L (8-16); Blood Urea Nitrogen 46 mg/dL (7-17); Carbon Dioxide 19 mmol/L (22-30); Chloride 110 mmol/L (98-107); Estimated Glomerular Filt Rate 25; Glucose 317 mg/dL (65-105); Phosphorus 4.1 mg/dL (2.5-4.5); Potassium 4.3 mmol/L (3.4-5.0); Sodium 143 mmol/L (137-145)
[2021-01-27 09:26] LABS: Parathyroid Intact 33.8 pg/mL (7.5-53.5)
== END 2021-01-26 10:04 | disposition home or self-care (01) ==
LOC: ANHLAB 10:05
PROVIDERS: PCP Internal Medicine; Visit Provider Internal Medicine Nephrology
DX: N18.4 Chronic kidney disease, stage 4 (severe) (principal); D63.1 Anemia in chronic kidney disease
CPT/HCPCS: 36415; 80069; 81001; 82570; 83540; 83550; 83970; 84156; 85027; 85652; 86160

== ENCOUNTER 2021-02-11 08:15 | Outpatient (CLI) | payer BC, SELFPAY ==
[2021-02-17 04:33] LABS: Albumin 69 %; Creat 24 Hr 1.29 g/24 h (0.50-2.15); Measured Kappa Chains 3.82 mg/dL (<2.00); Measured Lambda Chains 2.47 mg/dL (<2.00); Pro/Creat Ratio 3030 mg/g creat (<=114); Total Kappa Chains 114.6 mg/24 h; Total Lambda Chains 74.1 mg/24 h
== END 2021-02-11 08:16 | disposition home or self-care (01) ==
PROVIDERS: PCP Internal Medicine; Visit Provider Internal Medicine Nephrology
DX: N18.4 Chronic kidney disease, stage 4 (severe) (principal); D63.1 Anemia in chronic kidney disease
CPT/HCPCS: 86335

== ENCOUNTER 2021-03-01 11:27 | Outpatient (CLI) | payer BC, SELFPAY ==
--- NOTE | ~2021-03-01 | US_ITS ---
EXAMINATION: US renal BI DATE: 03/01/2021 12:05 INDICATION: Chronic kidney disease stage IV TECHNIQUE: Multiple grayscale and Doppler ultrasound images of the kidneys were obtained. COMPARISON: None. FINDINGS: The right kidney measures 12.1 x 4.1 x 5.2 cm. The left kidney measures 11.1 x 4.5 x 4.8 cm . The kidneys demonstrate normal parenchymal echogenicity. There is no hydronephrosis. The bladder is normal. IMPRESSION: 1. Normal kidneys without hydronephrosis. Reviewed, dictated and finalized at location B.
== END 2021-03-01 11:28 | disposition home or self-care (01) ==
PROVIDERS: PCP Internal Medicine; Visit Provider Internal Medicine Nephrology
DX: N18.4 Chronic kidney disease, stage 4 (severe) (principal)
CPT/HCPCS: 76775

== ENCOUNTER 2021-03-29 09:00 | Outpatient (CLI) | payer BC, SELFPAY ==
[2021-03-29 09:54] LABS: Cholesterol 164 mg/dL (0-200); HDL Direct 31 mg/dL; Triglycerides 243 mg/dL (<150)
[2021-03-29 10:05] LABS: LDL Cholesterol Direct 61 mg/dL
[2021-03-29 11:55] LABS: Hemoglobin A1C 9.1 % (<5.7)
[2021-03-29 12:23] LABS: Vitamin D 25 Hydroxy 32.7 ng/mL
== END 2021-03-29 09:01 | disposition home or self-care (01) ==
PROVIDERS: PCP Internal Medicine; Visit Provider Internal Medicine
DX: E11.8 Type 2 diabetes mellitus with unspecified complications (principal); E78.5 Hyperlipidemia, unspecified; E55.9 Vitamin D deficiency, unspecified
CPT/HCPCS: 36415; 80061; 82306; 83036

== ENCOUNTER 2021-03-29 09:07 | Outpatient (CLI) | payer BC, SELFPAY ==
[2021-03-29 09:55] LABS: Albumin Level 3.8 g/dL (3.5-5.1); Anion Gap 9 mmol/L (8-16); Blood Urea Nitrogen 58 mg/dL (7-17); Calcium 9.7 mg/dL (8.4-10.2); Carbon Dioxide 23 mmol/L (22-30); Chloride 110 mmol/L (98-107); Estimated Glomerular Filt Rate 18; Glucose 165 mg/dL (65-110); Phosphorus 5.2 mg/dL (2.5-4.5); Potassium 4.5 mmol/L (3.4-5.0); Sodium 142 mmol/L (137-145)
[2021-03-29 10:02] LABS: Complement C3 119 mg/dL (88-165)
[2021-03-29 10:33] LABS: Erythrocyte Sedimentation Rate > 140 mm/hr (0-20)
[2021-04-01 06:34] LABS: Lambda Light Chain 55.8 mg/L (5.7-26.3)
[2021-04-01 13:30] LABS: Complement Total CH50 >60 U/mL (31-60)
== END 2021-03-29 09:08 | disposition home or self-care (01) ==
PROVIDERS: PCP Internal Medicine; Visit Provider Internal Medicine Nephrology
DX: N18.4 Chronic kidney disease, stage 4 (severe) (principal)
CPT/HCPCS: 36415; 80069; 83883; 85652; 86038; 86160; 86162; 86334

== ENCOUNTER 2021-04-24 13:55 | Outpatient (CLI) | payer BC, SELFPAY ==
[2021-04-24 15:12] LABS: Creatinine Urine 116.4 mg/dL
[2021-04-24 15:17] LABS: Albumin Level 4.5 g/dL (3.5-5.1); Anion Gap 12 mmol/L (8-16); Blood Urea Nitrogen 69 mg/dL (7-17); Calcium 9.9 mg/dL (8.4-10.2); Carbon Dioxide 22 mmol/L (22-30); Chloride 104 mmol/L (98-107); Estimated Glomerular Filt Rate 16; Glucose 173 mg/dL (65-110); Phosphorus 5.6 mg/dL (2.5-4.5); Potassium 4.4 mmol/L (3.4-5.0); Sodium 138 mmol/L (137-145)
[2021-04-24 15:42] LABS: Sodium Urine Random 57 meq/L
[2021-04-24 15:45] LABS: Total Protein Urine Random 278 mg/dL; Ur Ttl Prot Creatinine Ratio 2.39 mg/mg (0-0.20)
[2021-04-26 11:14] LABS: Kappa\\Lambda Light Chains 1.59 (0.26-1.65); Lambda Light Chain 75.1 mg/L (5.7-26.3)
== END 2021-04-24 13:56 | disposition home or self-care (01) ==
LOC: ANHLAB 13:59
PROVIDERS: PCP Internal Medicine; Visit Provider Internal Medicine Nephrology
DX: N18.4 Chronic kidney disease, stage 4 (severe) (principal)
CPT/HCPCS: 36415; 80069; 82570; 83883; 84156; 84300

== ENCOUNTER 2021-04-24 14:10 | Outpatient (CLI) | payer BC, SELFPAY ==
[2021-04-24 15:05] LABS: Basophils Absolute Auto 0.1 K/mm3 (0.0-0.1); Basophils Percent Auto 0.5 % (0.2-1.2); Eosinophils Absolute Auto 0.2 K/mm3 (0-0.3); Eosinophils Percent Auto 1.6 % (0-4.4); Hematocrit 27.9 % (37.0-47.0); Hemoglobin 8.6 g/dL (12.0-15.0); Immature Granulocyte Absolute 0.06 K/mm3 (0.00-0.031); Immature Granulocyte Percent A 0.6 % (0-0.5); Lymphocytes Percent Auto 20.4 % (18.3-44.2); Mean Corpuscular HGB Conc 30.8 g/dl (32-36); Mean Corpuscular Hemoglobin 28.3 pg (26-34); Mean Corpuscular Volume 91.8 fl (80-100); Monocytes Absolute Auto 0.9 K/mm3 (0.1-0.6); Monocytes Percent Auto 9.1 % (2.6-8.5); Neutrophils Absolute Auto 6.3 K/mm3 (1.3-6.7); Neutrophils Percent Auto 67.8 % (45.5-73.1); Platelet Count Result 178 k/mm3 (150-375); Red Blood Count 3.04 M/mm3 (4.2-5.4); Red Cell Distribution Width 14.2 % (11.5-14.5); White Blood Count 9.3 K/mm3 (4.5-10.0)
[2021-04-24 18:21] LABS: Iron 32 ug/dL (37-170)
[2021-04-24 18:31] LABS: Percent Iron Saturation 11 % (20-50)
[2021-04-24 19:57] LABS: Alanine Aminotransferase 22 U/L (4-35); Albumin Level 4.5 g/dL (3.5-5.1); Alkaline Phosphatase 118 U/L (38-126); Anion Gap 16 mmol/L (8-16); Aspartate Amino Transferase 21 U/L (14-36); Bilirubin,Total 0.4 mg/dL (0.2-1.3); Blood Urea Nitrogen 68 mg/dL (7-17); Carbon Dioxide 21 mmol/L (22-30); Chloride 105 mmol/L (98-107); Estimated Glomerular Filt Rate 16; Glucose 168 mg/dL (65-110); Potassium 4.6 mmol/L (3.4-5.0); Sodium 142 mmol/L (137-145)
[2021-04-24 20:05] LABS: Transferrin 214 mg/dL (206-381)
[2021-04-24 21:08] LABS: Folic Acid 14.1 ng/mL (2.76->20); Vitamin B12 > 1000.0 pg/mL (239-931)
[2021-04-27 10:11] LABS: Methylmalonic Acid 338 nmol/L (87-318)
[2021-04-27 20:57] LABS: Erythropoietin (EPO) 19.1 mIU/mL (2.6-18.5)
== END 2021-04-24 14:11 | disposition home or self-care (01) ==
LOC: ANHLAB 14:10
PROVIDERS: PCP Internal Medicine; Visit Provider Internal Medicine Hematology & Oncology
DX: D64.9 Anemia, unspecified (principal)
CPT/HCPCS: 36415; 80053; 82607; 82668; 82728; 82746; 83540; 83550; 83921; 84466; 85025

== ENCOUNTER 2021-04-27 13:20 | Outpatient (CLI) | payer BC, SELFPAY ==
--- NOTE | ~2021-04-27 | US_ITS ---
EXAMINATION: US soft tissue LE RT DATE: 04/27/2021 14:32 INDICATION: 2 weeks of left thigh pain TECHNIQUE: Multiple grayscale and Doppler ultrasound images of the region of concern at the left thig h were obtained. COMPARISON: None FINDINGS: No abnormal mass or fluid collection is identified at the region of concern. The visualized underlyin g musculature appears normal. The left common femoral vein and left greater saphenous vein in the reg ion of concern for both patent and compressible with no thrombosis. IMPRESSION: 1. Normal study. No abnormal masses or fluid collections identified at the region of concern. Reviewed, dictated and finalized at location B. IMPRESSION: 1. Normal study. No abnormal masses or fluid collections identified at the nessa on of concern.
== END 2021-04-27 13:21 | disposition home or self-care (01) ==
LOC: ANHIMG 13:25
PROVIDERS: PCP Internal Medicine; Visit Provider Internal Medicine
DX: M79.89 Other specified soft tissue disorders (principal)
CPT/HCPCS: 76882

== ENCOUNTER 2021-05-23 10:11 | Outpatient (CLI) | payer BC, SELFPAY ==
--- NOTE | ~2021-05-23 | US_ITS ---
EXAMINATION: US venous doppler [facility] EXAM DATE: 05/23/2021 10:52 INDICATION: M79.89 - Other specified soft tissue disorders. TECHNIQUE: Multiple grayscale, color flow and Doppler images of the left lower extremity deep venous system were obtained and reviewed. There is no prior study for comparison. FINDINGS: The left common femoral, femoral and profunda veins demonstrate normal color flow, respirat ory variation, augmentation and compressibility. Compressibility, color flow confirmed within the le ft popliteal, posterior tibial, peroneal, and greater saphenous veins. IMPRESSION: 1. No left lower extremity deep venous thrombosis. Reviewed, dictated and finalized at location A.
== END 2021-05-23 10:12 | disposition home or self-care (01) ==
PROVIDERS: PCP Internal Medicine; Visit Provider Nurse Practitioner
DX: M79.89 Other specified soft tissue disorders (principal)
CPT/HCPCS: 93971

== ENCOUNTER 2021-08-16 09:12 | Outpatient (CLI) | payer BC, SELFPAY ==
[2021-08-16 10:35] LABS: Alanine Aminotransferase 13 U/L (4-35); Albumin Level 3.9 g/dL (3.5-5.1); Alkaline Phosphatase 115 U/L (38-126); Anion Gap 10 mmol/L (8-16); Aspartate Amino Transferase 16 U/L (14-36); Bilirubin,Total 0.3 mg/dL (0.2-1.3); Blood Urea Nitrogen 46 mg/dL (7-17); Calcium 9.4 mg/dL (8.4-10.2); Carbon Dioxide 24 mmol/L (22-30); Chloride 103 mmol/L (98-107); Cholesterol 236 mg/dL (0-200); Estimated Glomerular Filt Rate 19; Glucose 269 mg/dL (65-110); HDL Direct 33 mg/dL; Potassium 4.4 mmol/L (3.4-5.0); Sodium 137 mmol/L (137-145); Triglycerides 391 mg/dL (<150)
[2021-08-16 10:46] LABS: LDL Cholesterol Direct 80 mg/dL
[2021-08-16 10:47] LABS: Hemoglobin A1C 9.3 % (<5.7)
== END 2021-08-16 09:13 | disposition home or self-care (01) ==
PROVIDERS: PCP Internal Medicine; Visit Provider Internal Medicine
DX: E78.5 Hyperlipidemia, unspecified (principal); E11.8 Type 2 diabetes mellitus with unspecified complications; I12.9 Hypertensive chronic kidney disease with stage 1 through stage 4 chronic kidney disease, or unspecified chronic kidney disease; N18.4 Chronic kidney disease, stage 4 (severe)
CPT/HCPCS: 36415; 80053; 80061; 83036

== ENCOUNTER → 2021-08-31 00:48 | Outpatient (CLI) | payer BC, SELFPAY ==
[2021-08-31 11:52] LABS: Influenza A QL RT-PCR Negative (Negative); Influenza B QL RT-PCR Negative (Negative); SARS-CoV-2 RNA PCR Negative
== END ==
PROVIDERS: PCP Internal Medicine; Visit Provider Nurse Practitioner
DX: R68.89 Other general symptoms and signs (principal); Z20.822 Contact with and (suspected) exposure to COVID-19
CPT/HCPCS: 87502; C9803; U0003; U0005

== ENCOUNTER 2021-10-03 11:09 | Outpatient (CLI) | payer BC, SELFPAY ==
[2021-10-03 11:57] LABS: Alanine Aminotransferase 21 U/L (4-35); Albumin Level 4.2 g/dL (3.5-5.1); Alkaline Phosphatase 117 U/L (38-126); Anion Gap 8 mmol/L (8-16); Aspartate Amino Transferase 28 U/L (14-36); Bilirubin,Total 0.5 mg/dL (0.2-1.3); Blood Urea Nitrogen 46 mg/dL (7-17); Calcium 9.3 mg/dL (8.4-10.2); Carbon Dioxide 22 mmol/L (22-30); Chloride 110 mmol/L (98-107); Cholesterol 178 mg/dL (0-200); Estimated Glomerular Filt Rate 20; Glucose 191 mg/dL (65-110); HDL Direct 34 mg/dL; Potassium 4.7 mmol/L (3.4-5.0); Sodium 140 mmol/L (137-145); Triglycerides 277 mg/dL (<150)
[2021-10-03 12:00] LABS: Hemoglobin A1C 9.4 % (<5.7)
[2021-10-03 12:08] LABS: LDL Cholesterol Direct 58 mg/dL
[2021-10-03 12:22] LABS: Creatinine Urine 68.1 mg/dL
[2021-10-03 12:38] LABS: Vitamin D 25 Hydroxy 27.1 ng/mL
[2021-10-03 14:44] LABS: Microalbumin Urine Random > 1140.0 mg/L (0-16.7)
== END 2021-10-03 11:10 | disposition home or self-care (01) ==
PROVIDERS: Nurse Practitioner; PCP Internal Medicine; Visit Provider Internal Medicine Hematology & Oncology
DX: E78.5 Hyperlipidemia, unspecified (principal); E55.9 Vitamin D deficiency, unspecified; E11.8 Type 2 diabetes mellitus with unspecified complications
CPT/HCPCS: 36415; 80053; 80061; 82043; 82306; 83036

== ENCOUNTER 2021-11-01 06:59 | Outpatient (CLI) | payer BC, SELFPAY ==
--- NOTE | ~2021-11-01 | US_ITS ---
EXAMINATION: US abdomen limited EXAM DATE: 11/01/2021 09:30 INDICATION: R10.12 - Left upper quadrant pain . TECHNIQUE: Multiple grayscale and Doppler images of the abdomen left upper quadrant were obtained (by a technologist who performed the scan) and subsequently reviewed. Correlation is made to kidney ultr asound 03/01/2021. FINDINGS: The spleen measures 14.5 cm, mildly enlarged. Left kidney measures 11.8 x 4.6 x 5.7 cm is u nremarkable, no hydronephrosis. No perisplenic fluid. IMPRESSION: Mild splenomegaly. Reviewed, dictated and finalized at location B. IMPRESSION: Mild splenomegaly.
== END 2021-11-01 07:00 | disposition home or self-care (01) ==
LOC: ANHIMG 07:03
PROVIDERS: PCP Internal Medicine; Visit Provider Nurse Practitioner
DX: R10.12 Left upper quadrant pain (principal); R16.1 Splenomegaly, not elsewhere classified
CPT/HCPCS: 76705

== ENCOUNTER → 2021-12-29 02:25 | Outpatient (CLI) | payer BC, SELFPAY ==
[2021-12-29 16:50] LABS: SARS-CoV-2 RNA PCR Positive
== END ==
PROVIDERS: PCP Internal Medicine; Visit Provider Nurse Practitioner
DX: R11.10 Vomiting, unspecified (principal); Z20.822 Contact with and (suspected) exposure to COVID-19
CPT/HCPCS: C9803; U0003; U0005

== ENCOUNTER 2022-02-07 10:02 | Outpatient (CLI) | payer BC, SELFPAY ==
[2022-02-07 13:22] LABS: Albumin Level 3.9 g/dL (3.5-5.1); Anion Gap 9 mmol/L (8-16); Blood Urea Nitrogen 64 mg/dL (7-17); Carbon Dioxide 22 mmol/L (22-30); Chloride 111 mmol/L (98-107); Estimated Glomerular Filt Rate 16; Glucose 131 mg/dL (65-110); Phosphorus 5.4 mg/dL (2.5-4.5); Potassium 4.8 mmol/L (3.4-5.0); Sodium 142 mmol/L (137-145)
[2022-02-07 14:04] LABS: Total Protein Urine Random 299 mg/dL; Ur Ttl Prot Creatinine Ratio 4.67 mg/mg (0-0.20)
== END 2022-02-07 10:03 | disposition home or self-care (01) ==
LOC: ANHLAB 10:04
PROVIDERS: Internal Medicine Nephrology; PCP Internal Medicine; Visit Provider Internal Medicine
DX: N18.4 Chronic kidney disease, stage 4 (severe) (principal)
CPT/HCPCS: 36415; 80069; 82570; 83970; 84156

== ENCOUNTER 2022-03-21 09:04 | Outpatient (CLI) | payer MEDICAID, SELFPAY ==
[2022-03-21 10:08] LABS: Alanine Aminotransferase 11 U/L (6-35); Albumin Level 3.8 g/dL (3.5-5.1); Alkaline Phosphatase 108 U/L (38-126); Anion Gap 15 mmol/L (8-16); Aspartate Amino Transferase 15 U/L (14-36); Bilirubin,Total 0.3 mg/dL (0.2-1.3); Blood Urea Nitrogen 54 mg/dL (7-17); Calcium 9.5 mg/dL (8.4-10.2); Carbon Dioxide 23 mmol/L (22-30); Chloride 104 mmol/L (98-107); Cholesterol 154 mg/dL (0-200); Estimated Glomerular Filt Rate 14; Glucose 166 mg/dL (65-110); HDL Direct 29 mg/dL; Potassium 4.3 mmol/L (3.4-5.0); Sodium 142 mmol/L (137-145); Triglycerides 189 mg/dL (<150)
[2022-03-21 10:13] LABS: Hemoglobin A1C 7.3 % (<5.7)
[2022-03-21 10:19] LABS: LDL Cholesterol Direct 71 mg/dL
[2022-03-21 10:24] LABS: Vitamin D 25 Hydroxy 30.9 ng/mL
== END 2022-03-21 09:05 | disposition home or self-care (01) ==
LOC: ANHLAB 09:06
PROVIDERS: PCP Internal Medicine; Visit Provider Internal Medicine
DX: E55.9 Vitamin D deficiency, unspecified (principal); E11.8 Type 2 diabetes mellitus with unspecified complications; E78.5 Hyperlipidemia, unspecified
CPT/HCPCS: 36415; 80053; 80061; 82306; 83036

== ENCOUNTER 2022-05-23 09:00 | Outpatient (CLI) | payer OTHER, SELFPAY ==
[2022-05-23 10:08] LABS: Hematocrit 27.8 % (37.0-47.0); Mean Corpuscular HGB Conc 28.8 g/dl (32-36); Mean Corpuscular Hemoglobin 24.9 pg (26-34); Mean Corpuscular Volume 86.6 fl (80-100); Mean Platelet Volume 12.4 fl (7.4-10.4); Platelet Count Result 152 k/mm3 (150-375); Red Blood Count 3.21 M/mm3 (4.2-5.4); White Blood Count 8.2 K/mm3 (4.5-10.0)
[2022-05-23 10:12] LABS: Iron 60 ug/dL (37-170)
[2022-05-23 10:13] LABS: Albumin Level 4.2 g/dL (3.5-5.1); Anion Gap 14 mmol/L (8-16); Blood Urea Nitrogen 67 mg/dL (7-17); Calcium 9.1 mg/dL (8.4-10.2); Carbon Dioxide 18 mmol/L (22-30); Chloride 110 mmol/L (98-107); Estimated Glomerular Filt Rate 14; Glucose 149 mg/dL (65-110); Potassium 4.5 mmol/L (3.4-5.0); Sodium 142 mmol/L (137-145)
[2022-05-23 10:24] LABS: Percent Iron Saturation 21 % (20-50)
[2022-05-23 10:36] LABS: Parathyroid Intact 86.2 pg/mL (7.5-53.5)
[2022-05-23 10:38] LABS: Vitamin D 25 Hydroxy 33.3 ng/mL
[2022-05-23 11:19] LABS: Folic Acid 9.6 ng/mL (2.76->20)
== END 2022-05-23 09:01 | disposition home or self-care (01) ==
PROVIDERS: PCP Internal Medicine; Referring Provider Internal Medicine Hematology & Oncology; Visit Provider Internal Medicine Nephrology
DX: N18.4 Chronic kidney disease, stage 4 (severe) (principal); E21.1 Secondary hyperparathyroidism, not elsewhere classified; D63.1 Anemia in chronic kidney disease
CPT/HCPCS: 36415; 80069; 82306; 82607; 82746; 83540; 83550; 83970; 85027

== ENCOUNTER 2022-07-25 10:25 | Outpatient (CLI) | payer OTHER, SELFPAY ==
[2022-07-25 11:06] LABS: Basophils Absolute Auto 0.1 K/mm3 (0.0-0.1); Basophils Percent Auto 0.8 % (0.2-1.2); Eosinophils Absolute Auto 0.3 K/mm3 (0-0.3); Eosinophils Percent Auto 3.9 % (0-4.4); Hematocrit 24.9 % (37.0-47.0); Hemoglobin 7.3 g/dL (12.0-15.0); Immature Granulocyte Absolute 0.05 K/mm3 (0.00-0.031); Immature Granulocyte Percent A 0.8 % (0-0.5); Lymphocytes Absolute Auto 1.86 K/mm3 (0.9-3.2); Mean Corpuscular HGB Conc 29.3 g/dl (32-36); Mean Corpuscular Hemoglobin 24.8 pg (26-34); Mean Corpuscular Volume 84.7 fl (80-100); Monocytes Absolute Auto 0.6 K/mm3 (0.1-0.6); Monocytes Percent Auto 8.6 % (2.6-8.5); Neutrophils Absolute Auto 3.7 K/mm3 (1.3-6.7); Neutrophils Percent Auto 56.9 % (45.5-73.1); Platelet Count Result 201 k/mm3 (150-375); Red Blood Count 2.94 M/mm3 (4.2-5.4); Red Cell Distribution Width 16.5 % (11.5-14.5); White Blood Count 6.4 K/mm3 (4.5-10.0)
[2022-07-25 11:12] LABS: Creatinine Urine 63.1 mg/dL
[2022-07-25 11:13] LABS: Alanine Aminotransferase 11 U/L (6-35); Albumin Level 3.7 g/dL (3.5-5.1); Alkaline Phosphatase 105 U/L (38-126); Anion Gap 8 mmol/L (8-16); Aspartate Amino Transferase 13 U/L (14-36); Bilirubin,Total 0.3 mg/dL (0.2-1.3); Blood Urea Nitrogen 66 mg/dL (7-17); Calcium 9.1 mg/dL (8.4-10.2); Carbon Dioxide 20 mmol/L (22-30); Chloride 112 mmol/L (98-107); Cholesterol 165 mg/dL (0-200); Estimated Glomerular Filt Rate 11; Glucose 181 mg/dL (65-110); HDL Direct 26 mg/dL; Hemoglobin A1C 8.2 % (<5.7); Sodium 140 mmol/L (137-145); Triglycerides 184 mg/dL (<150)
[2022-07-25 11:16] LABS: Albumin Level 3.8 g/dL (3.5-5.1); Anion Gap 5 mmol/L (8-16); Blood Urea Nitrogen 65 mg/dL (7-17); CRP 5.6 mg/dL (<1.0); Carbon Dioxide 20 mmol/L (22-30); Chloride 108 mmol/L (98-107); Estimated Glomerular Filt Rate 11; Glucose 182 mg/dL (65-110); Phosphorus 6.6 mg/dL (2.5-4.5); Potassium 4.9 mmol/L (3.4-5.0); Sodium 133 mmol/L (137-145)
[2022-07-25 11:19] LABS: Total Protein Urine Random 280 mg/dL; Ur Ttl Prot Creatinine Ratio 4.44 mg/mg (0-0.20)
[2022-07-25 11:24] LABS: LDL Cholesterol Direct 79 mg/dL
[2022-07-25 11:33] LABS: Iron 56 ug/dL (37-170)
[2022-07-25 11:48] LABS: Vitamin D 25 Hydroxy 30.3 ng/mL
[2022-07-25 11:51] LABS: Percent Iron Saturation 22 % (20-50); Vitamin D 25 Hydroxy 30.6 ng/mL
[2022-07-25 14:33] LABS: Erythrocyte Sedimentation Rate > 140 mm/hr (0-20)
[2022-07-27 17:20] LABS: Hepatitis B DNA PCR <1.00 Log IU/mL; Hepatitis B DNA PCR <10 IU/mL
== END 2022-07-25 10:26 | disposition home or self-care (01) ==
PROVIDERS: PCP Internal Medicine; Referring Provider Internal Medicine Hematology & Oncology; Visit Provider Internal Medicine
DX: E11.8 Type 2 diabetes mellitus with unspecified complications (principal); H91.93 Unspecified hearing loss, bilateral; N18.4 Chronic kidney disease, stage 4 (severe); E55.9 Vitamin D deficiency, unspecified; E78.5 Hyperlipidemia, unspecified; E53.8 Deficiency of other specified B group vitamins; D63.1 Anemia in chronic kidney disease; M14.672 Charcot's joint, left ankle and foot
CPT/HCPCS: 36415; 80053; 80061; 80069; 82306; 82570; 82607; 82728; 83036; 83540; 83550; 83970; 84156; 85025; 85027; 85652; 86140; 87517

== ENCOUNTER 2022-10-31 10:12 | Outpatient (CLI) | payer OTHER, SELFPAY ==
[2022-10-31 10:31] LABS: Hematocrit 29.8 % (37.0-47.0); Hemoglobin 8.8 g/dL (12.0-15.0); Mean Corpuscular HGB Conc 29.5 g/dl (32-36); Mean Corpuscular Hemoglobin 26.6 pg (26-34); Mean Platelet Volume 12.4 fl (7.4-10.4); Platelet Count Result 160 k/mm3 (150-375); Red Blood Count 3.31 M/mm3 (4.2-5.4); Red Cell Distribution Width 15.3 % (11.5-14.5); White Blood Count 9.9 K/mm3 (4.5-10.0)
[2022-10-31 10:42] LABS: Alanine Aminotransferase 14 U/L (6-35); Albumin Level 3.8 g/dL (3.5-5.1); Alkaline Phosphatase 95 U/L (38-126); Anion Gap 8 mmol/L (8-16); Aspartate Amino Transferase 12 U/L (14-36); Bilirubin,Total 0.5 mg/dL (0.2-1.3); Blood Urea Nitrogen 77 mg/dL (7-17); Calcium 8.8 mg/dL (8.4-10.2); Carbon Dioxide 21 mmol/L (22-30); Chloride 109 mmol/L (98-107); Cholesterol 207 mg/dL (0-200); Estimated Glomerular Filt Rate 11; Glucose 174 mg/dL (65-110); HDL Direct 39 mg/dL; Potassium 4.9 mmol/L (3.4-5.0); Sodium 138 mmol/L (137-145); Triglycerides 192 mg/dL (<150)
[2022-10-31 10:45] LABS: Albumin Level 3.8 g/dL (3.5-5.1); Anion Gap 10 mmol/L (8-16); Blood Urea Nitrogen 78 mg/dL (7-17); Calcium 8.8 mg/dL (8.4-10.2); Carbon Dioxide 20 mmol/L (22-30); Chloride 109 mmol/L (98-107); Estimated Glomerular Filt Rate 11; Glucose 174 mg/dL (65-110); Phosphorus 6.2 mg/dL (2.5-4.5); Potassium 4.8 mmol/L (3.4-5.0); Sodium 139 mmol/L (137-145)
[2022-10-31 10:46] LABS: Hemoglobin A1C 9.1 % (<5.7)
[2022-10-31 10:53] LABS: LDL Cholesterol Direct 94 mg/dL
[2022-10-31 10:54] LABS: Parathyroid Intact 141.4 pg/mL (7.5-53.5)
[2022-10-31 11:24] LABS: Total Protein Urine Random 418 mg/dL; Ur Ttl Prot Creatinine Ratio 11.94 mg/mg (0-0.20)
== END 2022-10-31 10:13 | disposition home or self-care (01) ==
PROVIDERS: Nurse Practitioner; PCP Internal Medicine; Visit Provider Internal Medicine Nephrology
DX: E11.8 Type 2 diabetes mellitus with unspecified complications (principal); E78.5 Hyperlipidemia, unspecified; N18.4 Chronic kidney disease, stage 4 (severe)
CPT/HCPCS: 36415; 80053; 80061; 80069; 82570; 83036; 83970; 84156; 85027

== ENCOUNTER 2022-11-13 11:36 | Outpatient (CLI) | payer OTHER, SELFPAY ==
[2022-11-13 12:39] LABS: Hepatitis B Surface Antigen Negative (Negative)
[2022-11-13 12:57] LABS: Hepatitis B Surface Anti Res Negative; Hepatitis C Virus Antibody Negative (Negative)
[2022-11-15 18:58] LABS: NIL 0.03 IU/mL; Quantiferon TB Plus, 1T NEGATIVE (NEGATIVE); TB1-NIL <0.00 IU/mL; TB2-NIL <0.00 IU/mL
[2022-11-18 03:24] LABS: Hepatitis B Core Ab Total Nonreactive (Nonreactive)
== END 2022-11-13 11:37 | disposition home or self-care (01) ==
LOC: ANHLAB 11:38
PROVIDERS: PCP Internal Medicine; Visit Provider Internal Medicine Nephrology
DX: N18.4 Chronic kidney disease, stage 4 (severe) (principal); R80.1 Persistent proteinuria, unspecified
CPT/HCPCS: 36415; 86480; 86704; 86706; 86803; 87340

== ENCOUNTER 2022-12-24 08:58 | Outpatient (CLI) | payer MEDICARE, MEDICAID, SELFPAY ==
--- NOTE | ~2022-12-24 | XR_ITS ---
Clinical Indication: Chronic kidney disease PA and lateral views of the chest: Comparison: 08/28/2018 Findings: The lungs are clear, without evidence of focal consolidation or pleural effusion. Cardiome diastinal silhouette is stable. Bones and soft tissues are unremarkable. Impression: Clear lungs. Reviewed, dictated and finalized at location . Impression: Clear lungs.
[2022-12-24 11:17] LABS: Hepatitis B Surface Antigen Negative (Negative)
[2022-12-24 11:34] LABS: Hepatitis B Surface Anti Res Negative; Hepatitis C Virus Antibody Negative (Negative)
[2022-12-27 11:15] LABS: Hepatitis B Core Ab Total Nonreactive (Nonreactive)
== END 2022-12-24 08:59 | disposition home or self-care (01) ==
PROVIDERS: PCP Family Medicine; Visit Provider Internal Medicine Nephrology
DX: N18.4 Chronic kidney disease, stage 4 (severe) (principal); R80.1 Persistent proteinuria, unspecified; R53.83 Other fatigue
CPT/HCPCS: 36415; 71046; 86704; 86706; 86803; 87340

== ENCOUNTER 2023-04-23 08:13 | Outpatient (CLI) | payer MEDICARE, MEDICAID, SELFPAY ==
[2023-04-23 08:49] LABS: Alanine Aminotransferase 18 U/L (6-35); Albumin Level 3.8 g/dL (3.5-5.1); Alkaline Phosphatase 123 U/L (38-126); Anion Gap 12 mmol/L (8-16); Aspartate Amino Transferase 19 U/L (14-36); Bilirubin,Total 0.5 mg/dL (0.2-1.3); Blood Urea Nitrogen 53 mg/dL (7-17); Calcium 8.8 mg/dL (8.4-10.2); Carbon Dioxide 25 mmol/L (22-30); Chloride 101 mmol/L (98-107); Cholesterol 185 mg/dL (0-200); Estimated Glomerular Filt Rate 9; Glucose 327 mg/dL (65-110); HDL Direct 36 mg/dL; Potassium 3.7 mmol/L (3.4-5.0); Sodium 138 mmol/L (137-145); Triglycerides 450 mg/dL (<150)
[2023-04-23 08:53] LABS: Hemoglobin A1C 11.7 % (<5.7)
[2023-04-23 09:00] LABS: LDL Cholesterol Direct 50 mg/dL
== END 2023-04-23 08:14 | disposition home or self-care (01) ==
PROVIDERS: PCP Nurse Practitioner; Visit Provider Nurse Practitioner
DX: E78.5 Hyperlipidemia, unspecified (principal); E11.8 Type 2 diabetes mellitus with unspecified complications
CPT/HCPCS: 36415; 80053; 80061; 83036

== ENCOUNTER 2023-05-24 09:13 | Outpatient (CLI) | payer MEDICARE, MEDICAID, SELFPAY ==
[2023-05-24 10:12] LABS: Free T4 Free Thyroxine 1.05 ng/mL (0.78-2.19)
== END 2023-05-24 09:14 | disposition home or self-care (01) ==
LOC: ANHLAB 09:15
PROVIDERS: PCP Nurse Practitioner; Visit Provider Nurse Practitioner Family
DX: E11.9 Type 2 diabetes mellitus without complications (principal)
CPT/HCPCS: 36415; 84439; 84443

== ENCOUNTER 2023-08-27 10:30 | Outpatient (RCR) | payer MEDICARE, OTHER, SELFPAY ==
[2023-06-18 09:15] VITALS: BMI 46.7
[2023-06-18 10:32] VITALS: BMI 46.7
[2023-07-23 09:33] VITALS: BMI 45.7; BMI 46.7
== END 2023-08-27 23:59 | disposition home or self-care (01) ==
LOC: ANHDMC 10:30
PROVIDERS: PCP Nurse Practitioner; Visit Provider Nurse Practitioner Family
DX: E11.22 Type 2 diabetes mellitus with diabetic chronic kidney disease (principal); E88.819 Insulin resistance, unspecified; E66.01 Morbid (severe) obesity due to excess calories; N18.5 Chronic kidney disease, stage 5; Z71.89 Other specified counseling; Z71.3 Dietary counseling and surveillance
CPT/HCPCS: 97802; 97803; G0108

== ENCOUNTER 2023-10-23 09:46 | Outpatient (CLI) | payer MEDICARE, MEDICAID, SELFPAY ==
[2023-10-23 10:30] LABS: Alanine Aminotransferase 18 U/L (6-35); Albumin Level 3.9 g/dL (3.5-5.1); Alkaline Phosphatase 100 U/L (38-126); Anion Gap 10 mmol/L (4-12); Aspartate Amino Transferase 19 U/L (14-36); Bilirubin,Total 0.5 mg/dL (0.2-1.3); Blood Urea Nitrogen 74 mg/dL (7-17); Calcium 9.1 mg/dL (8.4-10.2); Carbon Dioxide 28 mmol/L (22-30); Chloride 103 mmol/L (98-107); Cholesterol 163 mg/dL (0-200); Estimated Glomerular Filt Rate 5; Glucose 134 mg/dL (65-110); HDL Direct 30 mg/dL; Sodium 141 mmol/L (137-145); Triglycerides 242 mg/dL (<150)
[2023-10-23 10:40] LABS: LDL Cholesterol Direct 77 mg/dL
== END 2023-10-23 09:47 | disposition home or self-care (01) ==
LOC: ANHLAB 09:50
PROVIDERS: PCP Nurse Practitioner; Visit Provider Nurse Practitioner
DX: E78.5 Hyperlipidemia, unspecified (principal)
CPT/HCPCS: 36415; 80053; 80061

== ENCOUNTER 2024-01-28 09:30 | Outpatient (RCR) | payer MEDICARE, MEDICAID, SELFPAY ==
[2023-11-05 09:50] VITALS: BMI 46.6
[2023-11-05 09:51] VITALS: BMI 46.6
[2024-01-28 09:32] VITALS: BMI 45.1; BMI 46.6
== END 2024-02-03 09:07 | disposition home or self-care (01) ==
LOC: ANHDMC 09:30
PROVIDERS: PCP Nurse Practitioner; Visit Provider Nurse Practitioner Family
DX: E11.22 Type 2 diabetes mellitus with diabetic chronic kidney disease (principal); E11.65 Type 2 diabetes mellitus with hyperglycemia; E88.810 Metabolic syndrome; E88.819 Insulin resistance, unspecified; N18.5 Chronic kidney disease, stage 5; E66.01 Morbid (severe) obesity due to excess calories; Z71.3 Dietary counseling and surveillance; Z71.89 Other specified counseling
CPT/HCPCS: 97803; G0108

== ENCOUNTER 2024-02-26 09:12 | Outpatient (RCR) | payer MEDICARE, MEDICAID, SELFPAY | END 2024-05-11 10:35 | disposition home or self-care (01) | LOC: ANHDMC 09:12 | PROVIDERS: PCP Nurse Practitioner; Visit Provider Nurse Practitioner Family | DX: E11.22 Type 2 diabetes mellitus with diabetic chronic kidney disease (principal); E66.01 Morbid (severe) obesity due to excess calories; N18.5 Chronic kidney disease, stage 5; Z71.89 Other specified counseling | CPT/HCPCS: G0108 ==

== ENCOUNTER 2024-04-09 11:26 | Outpatient (CLI) | payer MEDICARE, MEDICAID, SELFPAY ==
[2024-04-09 12:10] LABS: LDL Cholesterol Direct 65 mg/dL
[2024-04-09 12:11] LABS: Cholesterol 152 mg/dL (0-200); HDL Direct 26 mg/dL; Triglycerides 238 mg/dL (<150)
== END 2024-04-09 11:27 | disposition home or self-care (01) ==
PROVIDERS: PCP Nurse Practitioner; Visit Provider Nurse Practitioner
DX: E03.9 Hypothyroidism, unspecified (principal); E78.5 Hyperlipidemia, unspecified
CPT/HCPCS: 36415; 80061; 84443

== ENCOUNTER 2024-05-11 15:06 | Inpatient (IN) | payer MEDICARE, MEDICAID, SELFPAY ==
[2024-05-11] VITALS (7 sets, daily range): BP systolic 107–136; BP diastolic 56–87; PULSE 12–123; RESP 16–25; TEMP 36.7–37.3; O2SAT 93–100; BMI 43.6
--- NOTE | ~2024-05-11 | XR_ITS ---
EXAMINATION: XR foot RT min 3V DATE: 05/11/2024 17:48 INDICATION: Postoperative infection post recent amputation of 3 toes the right foot. TECHNIQUE: Dorsoplantar, two oblique and lateral views of the right foot were obtained. COMPARISON: None. FINDINGS: Prior amputations of the second-fourth toes level of the metatarsophalangeal joints. There is soft ti ssue gas in the overlying soft tissues with bone loss at the head of the fourth metatarsal and with m ore subtle loss of portions of the linear cortical margin along the heads of the second and third met atarsals consistent with osteomyelitis. Mild polyarticular osteoarthritis throughout the right foot m ost prominent at the tarsal metatarsal joints. Large Achilles and plantar calcaneal spurs. Scattered vascular calcifications. IMPRESSION: 1. Status post second-fourth right toe indications with soft tissue gas and osteolysis along the head s of the fourth and more subtly at the second and third metatarsals consistent with osteomyelitis. Reviewed, dictated and finalized at location A. IMPRESSION: 1. Status post second-fourth right toe indications with soft tissue gas and ost eolysis along the heads of the fourth and more subtly at the second and third m etatarsals consistent with osteomyelitis.
--- NOTE | 2024-05-11 18:16 | ED.GENADULT ---
HPI - General Adult General Chief complaint: Wound/Laceration Stated complaint: hypotension sent by [facility],right foot wound Time Seen by Provider: 05/11/24 17:08 History of Present Illness HPI narrative: Patient is a 58-year-old female who presents ER with reports of low blood pressure by her home health nurse. Patient recently had an amputation of toes 2 through 4 on her right foot. Apparently the wound is malodorous and does not appear to be healing properly according to the patient her significant other. Patient denies fevers or chills. She does feel mildly weak. Surgery was performed at [facility] 2 weeks ago. She has not been on antibiotics since her discharge. Related Data Home Medications Medication Instructions Recorded Confirmed calcium 600 mg (as carbonate)-vit 1 tablet PO BID 09/08/19 02/26/24 D3 10 mcg (400 unit)-minerals tablet multivitamin 1 tablet PO DAILY 09/08/19 02/26/24 carvedilol 6.25 mg tablet 6.25 mg PO Q12H 02/06/23 02/26/24 cholecalciferol (vitamin D3) 125 125 mcg PO DAILY 05/09/23 02/26/24 mcg (5,000 unit) capsule furosemide 80 mg tablet 80 mg PO BID 05/09/23 02/26/24 vitamin B comp no.3-folic acid 1 1 tablet PO DAILY 05/09/23 02/26/24 mg-vit C 60 mg-biotin 300 mcg tablet ([facility]) sevelamer HCl 800 mg tablet 800 mg PO TID 08/05/23 02/26/24 tenapanor 30 mg tablet (Xphozah) mg PO BID 02/26/24 02/26/24 Allergies Allergy/AdvReac Type Severity Reaction Status Date / Time No Known Allergies Allergy Verified 05/11/24 15:07 Review of Systems Review of Systems: All systems reviewed & are unremarkable except as noted in HPI and below Constitutional: Constitutional: Denies chills, Reports fatigue and Denies fever(s) ENT: Reports system reviewed and no additional complaints, except as documented Cardiovascular: Cardiovascular: Reports no additional cardiovascular complaints Respiratory: Respiratory: Reports no additional respiratory complaints Gastrointestinal: Gastrointestinal: Reports no additional gastrointestinal complaints PMFSH Past Medical History Medical History Anemia, unspecified Blood in stool Chest discomfort Diabetes mellitus type 2 with complications Postmenopausal Right thigh pain Screening for breast cancer Screening for colon cancer Screening for osteoporosis Splenomegaly Vitamin D deficiency, unspecified Surgical History Surgical History H/O section History of gastric surgery History of hysterectomy Hx of ovarian cystectomy Family History Family History Sibling Patient's sister is in good health Mother Family history of malignant neoplasm of cervix Other Family history of cardiac disorder Social History Social History Smoking status: Never smoker Second hand tobacco smoke exposure: No Alcohol intake: never Substance use: never Substance use type: does not use Lack of Transportation: No Lack of Food: Sometimes True Current Housing: I Have Housing Concerned About Future Housing: No Difficulty Paying Gas/Electric Bills: No Difficulty Paying for Meds: No Currently Unemployed: No Education: High School Diploma/GED Difficulty w/ Childcare or Family Care: No Gender identity (if verbalized by the patient): Female Spiritual care concerns: No Exam Narrative: GENERAL: Well-appearing, obese, and in no acute distress. HEAD: Normocephalic, atraumatic. ENT: Mucous membranes moist. NECK: Supple. CHEST: Clear to auscultation. No respiratory distress. HEART: Regular rate and rhythm. Normal peripheral pulses. ABDOMEN: Soft, nontender, nondistended. EXTREMITIES: Normal range of motion. No edema. Right foot with necrotic appearing foot wound with exposure of metatarsal
[2024-05-11 18:42] LABS: Basophils Absolute Auto 0.1 K/mm3 (0.0-0.1); Basophils Percent Auto 0.4 % (0.2-1.2); Hematocrit 24.8 % (37.0-47.0); Hemoglobin 7.8 g/dL (12.0-15.0); Immature Granulocyte Absolute 0.61 K/mm3 (0.00-0.031); Immature Granulocyte Percent A 2.5 % (0-0.5); Lymphocytes Absolute Auto 1.56 K/mm3 (0.9-3.2); Lymphocytes Percent Auto 6.4 % (18.3-44.2); Mean Corpuscular HGB Conc 31.5 g/dl (32-36); Mean Corpuscular Hemoglobin 30.4 pg (26-34); Mean Corpuscular Volume 96.5 fl (80-100); Mean Platelet Volume 11.4 fl (7.4-10.4); Monocytes Percent Auto 8.1 % (2.6-8.5); Neutrophils Absolute Auto 20.3 K/mm3 (1.3-6.7); Neutrophils Percent Auto 82.6 % (45.5-73.1); Platelet Count Result 305 k/mm3 (150-375); Red Blood Count 2.57 M/mm3 (4.2-5.4); Red Cell Distribution Width 13.1 % (11.5-14.5); White Blood Count 24.6 K/mm3 (4.5-10.0)
[2024-05-11 18:51] LABS: INR 1.4; Prothrombin Time 17.1 Seconds (11.1-14.7)
[2024-05-11 18:52] LABS: Partial Thromboplastin Time 36.8 Seconds (22.3-36.8)
[2024-05-11 18:54] LABS: Lactic Acid Reflex 1.6 mmol/L (0.7-2.0)
[2024-05-11 19:14] LABS: Alanine Aminotransferase 6 U/L (6-35); Albumin Level 3.9 g/dL (3.5-5.1); Alkaline Phosphatase 123 U/L (38-126); Anion Gap 16 mmol/L (4-12); Aspartate Amino Transferase 11 U/L (14-36); Bilirubin,Total 0.8 mg/dL (0.2-1.3); Blood Urea Nitrogen 64 mg/dL (7-17); Calcium 8.7 mg/dL (8.4-10.2); Carbon Dioxide 25 mmol/L (22-30); Chloride 90 mmol/L (98-107); Estimated CRCL calculation 5 ml/min; Estimated Glomerular Filt Rate 3; Glucose 220 mg/dL (65-110); Potassium 3.7 mmol/L (3.4-5.0); Sodium 131 mmol/L (137-145)
[2024-05-11 19:24] LABS: CRP 34.8 mg/dL (<1.0)
[2024-05-11] MEDS: MEROPENEM 1 GM/NS 100 ML 1 GM/100 ML BAG IVPB (19:40)
[2024-05-11] MEDS: SODIUM CHLORIDE 0.9% IV 1,000 ML 999 ML IV CONT (20:04)
[2024-05-11] MEDS: CLINDAMYCIN 900 MG/D5W 50 ML 900 MG/50 ML PIGGYBACK 50 MG IVPB (20:06)
--- NOTE | 2024-05-11 21:09 | PM.IMHP ---
H&P: HPI History of Present Illness Date/Time: 05/11/24 21:09 Chief Complaint: wound discoloration. Narrative: This is a 58-year-old female with past medical history significant for type 2 diabetes mellitus, peripheral vascular disease, peripheral diabetic neuropathy, end-stage renal disease on peritoneal dialysis, morbid obesity, patient is status post 6 day post op had right lower extremity amputations of toes 2nd 3rd and 4th, comes today to the emergency room due to discoloration and foul smelling of the wound. Patient denies any fevers, rigors, chills. X-ray of the foot was reported as soft tissue gas and osteolysis along the head so forth a more subtly 2nd and 3rd metatarsals consistent with osteomyelitis. Patient has been admitted for further evaluation management and treatment. EXAMINATION: XR foot RT min 3V DATE: 05/11/2024 17:48 INDICATION: Postoperative infection post recent amputation of 3 toes the right foot. TECHNIQUE: Dorsoplantar, two oblique and lateral views of the right foot were obtained. COMPARISON: None. FINDINGS: Prior amputations of the second-fourth toes level of the metatarsophalangeal joints. There is soft tissue gas in the overlying soft tissues with bone loss at the head of the fourth metatarsal and with more subtle loss of portions of the linear cortical margin along the heads of the second and third metatarsals consistent with osteomyelitis. Mild polyarticular osteoarthritis throughout the right foot most prominent at the tarsal metatarsal joints. Large Achilles and plantar calcaneal spurs. Scattered vascular calcifications. IMPRESSION: 1. Status post second-fourth right toe indications with soft tissue gas and osteolysis along the heads of the fourth and more subtly at the second and third metatarsals consistent with osteomyelitis. Review of Systems Review of Systems: Wound discoloration and foul smell Constitutional: Constitutional: Denies chills, Denies fever(s), Denies malaise and Denies night sweats PMFSH Past Medical History Medical History Anemia, unspecified Blood in stool Chest discomfort Diabetes mellitus type 2 with complications Postmenopausal Right thigh pain Screening for breast cancer Screening for colon cancer Screening for osteoporosis Splenomegaly Vitamin D deficiency, unspecified Surgical History Surgical History H/O section History of gastric surgery History of hysterectomy Hx of ovarian cystectomy Family History Family History Sibling Patient's sister is in good health Mother Family history of malignant neoplasm of cervix Other Family history of cardiac disorder Social History Social History Smoking status: Never smoker Second hand tobacco smoke exposure: No Alcohol intake: never Substance use: never Substance use type: does not use Do You Feel Safe in your Home?: Yes Lack of Transportation: No Lack of Food: Never True Current Housing: I Have Housing Concerned About Future Housing: No Difficulty Paying Gas/Electric Bills: No Difficulty Paying for Meds: No Currently Unemployed: No Education: High School Diploma/GED Difficulty w/ Childcare or Family Care: No Gender identity (if verbalized by the patient): Female Spiritual care concerns: No Meds Home Medications and Allergies Home Medications Medication Instructions Recorded Confirmed Type calcium 600 mg (as carbonate)-vit 1 tablet PO BID 09/08/19 05/11/24 History D3 10 mcg (400 unit)-minerals tablet multivitamin 1 tablet PO DAILY 09/08/19 05/12/24 History omega-3 fatty acids 1,000 mg 1,000 mg PO DAILY #90 caps 07/12/21 05/12/24 Rx capsule (Fish Oil Concentrate) atorvastatin 40 mg tablet 40 mg PO DAILY #90 tab
[2024-05-11 21:27] LABS: Glucose Point of Care 157 mg/dl (65-105)
[2024-05-11] MEDS: VANCOMYCIN 2,000 MG/NS 500 ML 2,000 MG/500 ML BAG 250 MG IVPB (21:51)
--- NOTE | 2024-05-11 22:33 | ADMGEN ---
This patient, Karla Talbot, was admitted to IMU Room 207-01. Patient/family oriented to hospital policies and general routines including ID bracelet, bed and alarms, visiting hours, pain management, procedures, bathroom and other care routines, personal items, smoking policy, room service/diet, and visiting hours. Information on how to activate the Rapid Response Team has been discussed. Patient/Family are encouraged to report perceived risks to care and to ask questions if they do not understand what they are told or what they should do.
[2024-05-12] VITALS (21 sets, daily range): BP systolic 102–133; BP diastolic 49–74; PULSE 98–123; RESP 18–22; TEMP 36.6–37.9; O2SAT 93–100
[2024-05-12 04:45] LABS: Estimated CRCL calculation 5 ml/min; Estimated Glomerular Filt Rate 3
[2024-05-12] MEDS: CLINDAMYCIN 900 MG/D5W 50 ML 900 MG/50 ML PIGGYBACK 50 MG IVPB ×3 (05:20→21:25)
[2024-05-12 05:21] LABS: Basophils Absolute Auto 0.1 K/mm3 (0.0-0.1); Basophils Percent Auto 0.6 % (0.2-1.2); Eosinophils Absolute Auto 0.1 K/mm3 (0-0.3); Eosinophils Percent Auto 0.4 % (0-4.4); Hematocrit 21.7 % (37.0-47.0); Immature Granulocyte Absolute 0.48 K/mm3 (0.00-0.031); Immature Granulocyte Percent A 2.2 % (0-0.5); Lymphocytes Absolute Auto 2.34 K/mm3 (0.9-3.2); Lymphocytes Percent Auto 10.8 % (18.3-44.2); Mean Corpuscular HGB Conc 31.3 g/dl (32-36); Mean Corpuscular Hemoglobin 30.6 pg (26-34); Mean Corpuscular Volume 97.7 fl (80-100); Mean Platelet Volume 11.6 fl (7.4-10.4); Monocytes Absolute Auto 2.3 K/mm3 (0.1-0.6); Monocytes Percent Auto 10.8 % (2.6-8.5); Neutrophils Absolute Auto 16.4 K/mm3 (1.3-6.7); Neutrophils Percent Auto 75.2 % (45.5-73.1); Platelet Count Result 265 k/mm3 (150-375); Red Blood Count 2.22 M/mm3 (4.2-5.4); Red Cell Distribution Width 13.2 % (11.5-14.5); White Blood Count 21.8 K/mm3 (4.5-10.0)
[2024-05-12 05:32] LABS: Alanine Aminotransferase 6 U/L (6-35); Albumin Level 2.7 g/dL (3.5-5.1); Alkaline Phosphatase 105 U/L (38-126); Anion Gap 17 mmol/L (4-12); Aspartate Amino Transferase 8 U/L (14-36); Bilirubin,Total 0.7 mg/dL (0.2-1.3); Blood Urea Nitrogen 63 mg/dL (7-17); Calcium 7.8 mg/dL (8.4-10.2); Carbon Dioxide 22 mmol/L (22-30); Chloride 93 mmol/L (98-107); Estimated CRCL calculation 6 ml/min; Estimated Glomerular Filt Rate 3; Glucose 130 mg/dL (65-110); Magnesium 1.9 mg/dL (1.6-2.3); Phosphorus 7.7 mg/dL (2.5-4.5); Potassium 3.3 mmol/L (3.4-5.0); Sodium 132 mmol/L (137-145)
[2024-05-12 05:50] LABS: Procalcitonin 1.8 ng/mL
[2024-05-12 06:00] LABS: Hemoglobin 6.8 g/dL (12.0-15.0)
[2024-05-12 06:02] LABS: Large Platelets Present; Platelet Estimate Adequate (Adequate)
[2024-05-12 06:03] LABS: Hepatitis B Surface Antigen Negative (Negative); Hypochromasia 1+; Schistocytes None Seen; Stomatocytes 1+
[2024-05-12 06:21] LABS: Hepatitis B Surface Anti Res Negative
[2024-05-12 08:45] LABS: Glucose Point of Care 135 mg/dl (65-105)
[2024-05-12 10:10] LABS: Hematocrit 23.3 % (37.0-47.0); Hemoglobin 7.1 g/dL (12.0-15.0); Mean Corpuscular HGB Conc 30.5 g/dl (32-36); Mean Corpuscular Hemoglobin 29.7 pg (26-34); Mean Corpuscular Volume 97.5 fl (80-100); Mean Platelet Volume 11.4 fl (7.4-10.4); Platelet Count Result 272 k/mm3 (150-375); Red Blood Count 2.39 M/mm3 (4.2-5.4); Red Cell Distribution Width 13.1 % (11.5-14.5); White Blood Count 20.4 K/mm3 (4.5-10.0)
--- NOTE | 2024-05-12 10:15 | PM.CNGS ---
Assessment and Plan Assessment and plan (1) Necrosis of surgical wound: Code(s): I97.89 - Other postprocedural complications and disorders of the circulatory system, not elsewhere classified; I96 - Gangrene, not elsewhere classified Status: Acute Assessment and Plan: non - healing surgical wound c extensive necrosis, foot xray suggest osteomyelitis of underlying bone, will likely need further amputation, cont abx for now, local wound care c [place]', awaiting transfer back to vascular surgery (2) Diabetic peripheral neuropathy associated with type 2 diabetes mellitus: Code(s): E11.42 - Type 2 diabetes mellitus with diabetic polyneuropathy Status: Acute Assessment and Plan: tight bs control given wound (3) ESRD on peritoneal dialysis: Code(s): N18.6 - End stage renal disease; Z99.2 - Dependence on renal dialysis Status: Acute Assessment and Plan: cont peritoneal dialysis History of Present Illness Consult details Consult date: 05/12/24 Reason for consult: wound care Requesting physician: Laura Murphy MD Narrative: The patient is a 58-year-old female with multiple medical issues including diabetes, peripheral vascular disease, ESRD presenting with a right lower extremity wound. The patient is status post 2nd through 4th toe amputations on 05/[address] Fernandes at an outside facility. The patient also reports a revascularization procedure prior to amputation. The patient reports she was sent home with home health and dressing changes. The patient re-presented to our facility after being evaluated by home health nurse. She reports that the wound has completely opened and has a foul smell. The patient reports that she has felt well and is quite weak. Of note, the patient is on the waiting list to go back to the facility that she had her operation. Review of Systems Review of Systems: All systems reviewed & are unremarkable except as noted in HPI and below PMFSH Past Medical History Medical History Anemia, unspecified Blood in stool Chest discomfort Diabetes mellitus type 2 with complications Postmenopausal Right thigh pain Screening for breast cancer Screening for colon cancer Screening for osteoporosis Splenomegaly Vitamin D deficiency, unspecified Surgical History Surgical History H/O section History of gastric surgery History of hysterectomy Hx of ovarian cystectomy Family History Family History Sibling Patient's sister is in good health Mother Family history of malignant neoplasm of cervix Other Family history of cardiac disorder Social History Social History Smoking status: Never smoker Second hand tobacco smoke exposure: No Alcohol intake: never Substance use: never Substance use type: does not use Do You Feel Safe in your Home?: Yes Lack of Transportation: No Lack of Food: Never True Current Housing: I Have Housing Concerned About Future Housing: No Difficulty Paying Gas/Electric Bills: No Difficulty Paying for Meds: No Currently Unemployed: No Education: High School Diploma/GED Difficulty w/ Childcare or Family Care: No Gender identity (if verbalized by the patient): Female Spiritual care concerns: No Meds Home Medications and Allergies Home Medications Medication Instructions Recorded Confirmed Type calcium 600 mg (as carbonate)-vit 1 tablet PO BID 09/08/19 05/11/24 History D3 10 mcg (400 unit)-minerals tablet multivitamin 1 tablet PO DAILY 09/08/19 05/12/24 History omega-3 fatty acids 1,000 mg 1,000 mg PO DAILY #90 caps 07/12/21 05/12/24 Rx capsule (Fish Oil Concentrate) atorvastatin 40 mg tablet 40 mg PO DAILY #90 tabs 01/02/22 05/11/24 Rx allopurinol 300 mg tablet 30
--- NOTE | 2024-05-12 10:35 | PM.CNNEP ---
History of Present Illness Reason for Consult Consult date: 05/12/24 Reason for consult: end stage renal disease Chief Complaint Chief complaint: Necrotic foot wound, Chronic kidney disease Review of Systems Review of Systems: As per HPI. [facility] Past Medical History Medical History Anemia, unspecified Blood in stool Chest discomfort Diabetes mellitus type 2 with complications Postmenopausal Right thigh pain Screening for breast cancer Screening for colon cancer Screening for osteoporosis Splenomegaly Vitamin D deficiency, unspecified Surgical History Surgical History H/O section History of gastric surgery History of hysterectomy Hx of ovarian cystectomy Family History Family History Sibling Patient's sister is in good health Mother Family history of malignant neoplasm of cervix Other Family history of cardiac disorder Social History Social History Smoking status: Never smoker Second hand tobacco smoke exposure: No Alcohol intake: never Substance use: never Substance use type: does not use Do You Feel Safe in your Home?: Yes Lack of Transportation: No Lack of Food: Never True Current Housing: I Have Housing Concerned About Future Housing: No Difficulty Paying Gas/Electric Bills: No Difficulty Paying for Meds: No Currently Unemployed: No Education: High School Diploma/GED Difficulty w/ Childcare or Family Care: No Gender identity (if verbalized by the patient): Female Spiritual care concerns: No Meds Home Medications and Allergies Home Medications Medication Instructions Recorded Confirmed Type calcium 600 mg (as carbonate)-vit 1 tablet PO BID 09/08/19 05/11/24 History D3 10 mcg (400 unit)-minerals tablet multivitamin 1 tablet PO DAILY 09/08/19 05/12/24 History omega-3 fatty acids 1,000 mg 1,000 mg PO DAILY #90 caps 07/12/21 05/12/24 Rx capsule (Fish Oil Concentrate) atorvastatin 40 mg tablet 40 mg PO DAILY #90 tabs 01/02/22 05/11/24 Rx allopurinol 300 mg tablet 300 mg PO DAILY #90 tabs 03/27/22 05/11/24 Rx carvedilol 6.25 mg tablet 6.25 mg PO Q12H 02/06/23 05/11/24 History furosemide 80 mg tablet 80 mg PO BID 05/09/23 05/12/24 History vitamin B comp no.3-folic acid 1 1 tablet PO DAILY 05/09/23 05/12/24 History mg-vit C 60 mg-biotin 300 mcg tablet (Halie-Justo Rx) sevelamer HCl 800 mg tablet 1,600 mg PO DAILY 08/05/23 05/11/24 History insulin degludec 200 unit/mL (3 24 unit (0.12 mL) subcut DAILY #9 11/20/23 05/12/24 Rx mL) subcutaneous pen (Tresiba mL FlexTouch U-200 insulin) insulin lispro 100 unit/mL See Rx Instructions subcut 04/07/24 05/11/24 Rx subcutaneous pen (Humalog KwikPen .COMPLEX #75 mL (U-100) Insulin) cyclobenzaprine 10 mg tablet 10 mg PO HS PRN Muscle Spasm 05/11/24 05/11/24 History doxepin 25 mg capsule 25 mg PO QHS PRN itching 05/11/24 05/11/24 History gabapentin 300 mg capsule 300 mg PO HS 05/11/24 05/12/24 History insulin NPH isoph U-100 human 100 35 unit subcut HS 05/11/24 05/12/24 History unit/mL (3 mL) subcutaneous pen (Humulin N NPH U-100 Insulin KwikPen) sevelamer carbonate 800 mg tablet 2,400 mg PO BIDAC 05/11/24 05/11/24 History Allergies Allergy/AdvReac Type Severity Reaction Status Date / Time No Known Allergies Allergy Verified 05/11/24 15:07 Vital Signs Vital Signs Temp Pulse Resp BP Pulse Ox O2 Del Method 05/12/24 10:35 98 05/12/24 07:39 98.7 F 103 H 22 H 108/67 97 05/12/24 07:38 97 Room Air 05/12/24 06:15 98 05/12/24 04:35 99.1 F 103 H 18 118/69 94 05/12/24 04:00 101 H 18 100 Room Air 05/12/24 04:00 101 H 05/12/24 02:00 101 H 05/12/24 00:00 102 H 05/12/24 00:00 106 H 18 100 Room
[2024-05-12] MEDS: allopurinoL 300 MG TABLET PO (10:59)
[2024-05-12] MEDS: INSULIN GLARGINE (*BKC) 100 UNITS/ML 24 UNITS SUB-Q (10:59)
[2024-05-12] MEDS: ATORVASTATIN 40 MG TABLET PO (10:59)
[2024-05-12] MEDS: FUROSEMIDE 80 MG TABLET PO ×2 (10:59→17:28)
[2024-05-12] MEDS: POTASSIUM CHLORIDE 20 MEQ ER TABLET 40 MEQ PO (11:03)
[2024-05-12 11:19] LABS: Glucose Point of Care 126 mg/dl (65-105)
[2024-05-12 12:30] LABS: MRSA (PCR) NOT DETECTED (NOT DETECTE)
[2024-05-12] MEDS: SEVELAMER CARBONATE 800 MG TABLET 2400 MG PO ×2 (12:53→17:28)
[2024-05-12] MEDS: MORPHINE SULFATE (*CRX) 2 MG/ML INJ IV PUSH ×2 (12:54→14:30)
[2024-05-12 16:10] LABS: Glucose Point of Care 193 mg/dl (65-105)
--- NOTE | 2024-05-12 17:34 | PM.IMPN ---
Progress Note: A&P Assessment and Plan (1) Necrosis of surgical wound: Code(s): I97.89 - Other postprocedural complications and disorders of the circulatory system, not elsewhere classified; I96 - Gangrene, not elsewhere classified Status: Acute Assessment and Plan: admit to IMU patient started on Merrem vanc and clindamycin awaiting bed at outside facility where surgery was performed (2) ESRD on peritoneal dialysis: Code(s): N18.6 - End stage renal disease; Z99.2 - Dependence on renal dialysis Status: Acute Assessment and Plan: continue peritoneal dialysis nephrology consult (3) Morbid (severe) obesity due to excess calories: Code(s): E66.01 - Morbid (severe) obesity due to excess calories Status: Acute Assessment and Plan: lifestyle and diet modifications (4) Benign essential hypertension: Code(s): I10 - Essential (primary) hypertension Status: Acute Assessment and Plan: resume home meds as needed (5) Diabetic peripheral neuropathy associated with type 2 diabetes mellitus: Code(s): E11.42 - Type 2 diabetes mellitus with diabetic polyneuropathy Status: Acute Assessment and Plan: continue gabapentin Subjective Date/time seen: 05/12/24 17:34 Interval history: Patient recently had an amputation of toes 2 through 4 on her right foot.Surgery was performed at [facility] 2 weeks ago. Surgery team evaluated and reports likely need further amputation and awaiting transfer back to vascular surgery.Called Vascular surgery [phone] () and waiting to hear back from them. Review of Systems Review of Systems: Wound discoloration and foul smell Constitutional: Constitutional: Denies chills, Denies fever(s), Denies malaise and Denies night sweats Exam Narrative: laying in a stretcher Const: General: comfortable, no acute distress, well developed, alert, awake, average body habitus and obese Nutritional Appearance: average body habitus and obese morbidly obese Orientation/consciousness: patient oriented x3 HENMT: Head: normal to inspection, normocephalic and atraumatic Ears: hearing grossly normal bilaterally Face/Nose/Sinus: normal facial exam Face and sinus: normal facial exam Eyes: General: appearance normal, both eyes and all related structures Pupils: Equal, round and reactive pupils present EOM: EOMs intact bilaterally Neck: Neck: full ROM, no lymphadenopathy and no JVD Thyroid: thyroid normal Lymphatic: no lymphadenopathy noted Resp: Effort & Inspection: normal respiratory effort and able to speak in complete sentences Auscultation: clear to auscultation bilaterally Cardio: Jugular venous distension: no JVD Rate: regular rate Rhythm: regular rhythm Heart sounds: S1 normal heart sound present and S2 normal heart sound present : General: Yes deferred Skin: General skin exam: amputation site Rashes: no rashes Wounds: no wounds and amputation site right 2nd toe bed schwartz and necrotic, malodorous and open, right 3rd toe bed, malodorous and open, right 4th toe bed schwartz and necrotic, malodorous and open Neuro: General: patient oriented x3 and CN's II-XI intact bilaterally Cranial nerves: Yes CN's II-XII intact bilaterally and Yes Equal, round and reactive pupils present Cognition (Neuro): normal cognition Speech: normal speech Gait exam (Neuro): Normal gait present Motor exam (neuro): 5/5 motor strength present throughout Extrem: General: normal to inspection, full ROM, no joint enlargement and no pedal edema Right lower extremity: foot Details: abnormal to inspection Details: other ( open necrotic wound site of amputation) Objective Data Vital Signs Vital Signs: Vital Signs - 24 hr 05/11/24 18:44 05/11/24 19:22 05/11/24 20:13 Temperature 98.3 F 98.3 F Pulse Rate 123 H 123 H 12 L Respiratory Rate 20 25 H 17 Blood Pressure 136/87 118/66 110/68 Pulse Oximetry 96
[2024-05-12 19:51] LABS: Glucose Point of Care 159 mg/dl (65-105)
[2024-05-12] MEDS: INSULIN HUMAN NPH (*BKC) 100 UNITS/ML 35 UNITS SUB-Q (20:46)
[2024-05-12] MEDS: carvediloL 6.25 MG TABLET PO (20:47)
[2024-05-12] MEDS: MEROPENEM 500 MG/NS 100 ML 500 MG/100 ML BAG 200 MG IVPB (20:48)
[2024-05-12] MEDS: SOD HYPOCHLORITE 1/4 STRENGTH 473 ML 1 APPLIC TOPICAL (20:48)
[2024-05-12] MEDS: GABAPENTIN 300 MG CAPSULE PO (20:48)
[2024-05-12] MEDS: GENTAMICIN SULFATE 0.1% CR 15 GM TUBE 1 APPLIC TOPICAL (20:48)
[2024-05-12 22:14] LABS: Vancomycin Random 17.3 ug/mL (10-20)
[2024-05-12] MEDS: VANCOMYCIN 1,250 MG/NS 250 ML 1,250 MG/250 ML BAG 166.67 MG IVPB (22:24)
[2024-05-13] VITALS (19 sets, daily range): BP systolic 84–114; BP diastolic 40–63; PULSE 93–112; RESP 18–24; TEMP 36.6–38.1; O2SAT 93–97
--- NOTE | 2024-05-13 | ECHO_ITS ---
Patient Info Name: Karla Talbot Age: 58 years : 1965 Gender: Female Ht: 65 in Wt: 269 lbs BSA: 2.43 m2 HR: 104 bpm BP: 84 / 42 mmHg Heart Rhythm: Indeterminant Technical Quality: Good Exam Date: 05/13/2024 3:17 PM Exam Location: Echo Lab Patient Status: Inpatient Admit Date: 05/12/2024 Staff Ordering Physician: Parveen Madden MD Soldering Machine Setter: Benitez Mccarthy RDCS Attending Provider: Laura Murphy MD Referring Physician: Maryanne LOGAN; Exam Type: CA echo doppler color flow Study Info Indications - hypotension Complete two-dimensional, color flow and Doppler transthoracic echocardiogram is performed. Summary 1. Left ventricular chamber dimension is normal. 2. Left ventricular systolic function is hyperdynamic, estimated at >70%. 3. There is mildly increased left ventricular wall thickness. 4. The left ventricular diastolic function is grade I diastolic dysfunction. 5. Right ventricular systolic function is normal. 6. There is mild aortic valve regurgitation. Left Ventricle Left ventricular chamber dimension is normal. Left ventricular systolic function is hyperdynamic, estimated at >70%. There is mildly increased left ventricular wall thickness. The left ventricular diastolic function is grade I diastolic dysfunction. Right Ventricle Right ventricular chamber dimension is normal. Right ventricular systolic function is normal. Left Atria Left atrial chamber dimension is normal. Right Atria Right atrial chamber dimension is normal. Atrial Septum Intact interatrial septum visualized by color flow imaging. Aortic Valve The aortic valve is probable trileaflet. There is no aortic valve stenosis. There is mild aortic valve regurgitation. There is mild aortic valve calcification. Pulmonic Valve The pulmonic valve is not well visualized. There is no pulmonic regurgitation. Mitral Valve There is trace mitral valve regurgitation. Tricuspid Valve There is trace tricuspid valve regurgitation. Pericardium/Pleural The pericardium appears epicardial fat pad. There is no pericardial effusion. Inferior Vena Cava Inferior vena cava is not well visualized. Aorta The aortic root size at the sinus of Valsalva is normal. Left Ventricular Outflow Tract Name Value Normal LVOT 2D LVOT Diameter 2.0 cm LVOT Doppler LVOT Peak Gradient 6 mmHg LVOT Mean Gradient 3 mmHg LVOT VTI 20 cm LVOT VTI/AV VTI Ratio 0.6 LVOT Stroke Volume 62 ml LVOT CO 5.8 l/min LVOT CI 2.4 l/min/m2 Pulmonic Valve Name Value Normal PV Doppler PV Peak Gradient 6 mmHg Mitral Valve Name Value Normal
[2024-05-13 05:04] LABS: Hematocrit 21.4 % (37.0-47.0); Mean Corpuscular HGB Conc 29.9 g/dl (32-36); Mean Corpuscular Hemoglobin 29.4 pg (26-34); Mean Corpuscular Volume 98.2 fl (80-100); Mean Platelet Volume 11.3 fl (7.4-10.4); Platelet Count Result 245 k/mm3 (150-375); Red Blood Count 2.18 M/mm3 (4.2-5.4); White Blood Count 16.6 K/mm3 (4.5-10.0)
[2024-05-13 05:09] LABS: Hemoglobin 6.4 g/dL (12.0-15.0)
[2024-05-13 05:21] LABS: Alanine Aminotransferase 7 U/L (6-35); Albumin Level 3.2 g/dL (3.5-5.1); Alkaline Phosphatase 105 U/L (38-126); Anion Gap 16 mmol/L (4-12); Aspartate Amino Transferase 10 U/L (14-36); Bilirubin,Total 0.7 mg/dL (0.2-1.3); Blood Urea Nitrogen 65 mg/dL (7-17); Calcium 7.8 mg/dL (8.4-10.2); Carbon Dioxide 24 mmol/L (22-30); Chloride 91 mmol/L (98-107); Estimated CRCL calculation 5 ml/min; Estimated Glomerular Filt Rate 3; Glucose 189 mg/dL (65-110); Potassium 3.7 mmol/L (3.4-5.0); Sodium 131 mmol/L (137-145)
[2024-05-13] MEDS: CLINDAMYCIN 900 MG/D5W 50 ML 900 MG/50 ML PIGGYBACK 50 MG IVPB (05:40)
[2024-05-13] MEDS: SEVELAMER CARBONATE 800 MG TABLET 1600 MG PO (05:40)
[2024-05-13 07:37] LABS: Glucose Point of Care 175 mg/dl (65-105)
--- NOTE | 2024-05-13 08:35 | PM.IMPN ---
Progress Note: A&P Assessment and Plan (1) Necrosis of surgical wound: Code(s): I97.89 - Other postprocedural complications and disorders of the circulatory system, not elsewhere classified; I96 - Gangrene, not elsewhere classified Status: Acute Assessment and Plan: admit to IMU patient started on Merrem vanc and clindamycin awaiting bed at outside facility where surgery was performed (2) ESRD on peritoneal dialysis: Code(s): N18.6 - End stage renal disease; Z99.2 - Dependence on renal dialysis Status: Acute Assessment and Plan: continue peritoneal dialysis nephrology consult (3) Morbid (severe) obesity due to excess calories: Code(s): E66.01 - Morbid (severe) obesity due to excess calories Status: Acute Assessment and Plan: lifestyle and diet modifications (4) Benign essential hypertension: Code(s): I10 - Essential (primary) hypertension Status: Acute Assessment and Plan: resume home meds as needed (5) Diabetic peripheral neuropathy associated with type 2 diabetes mellitus: Code(s): E11.42 - Type 2 diabetes mellitus with diabetic polyneuropathy Status: Acute Assessment and Plan: continue gabapentin Subjective Date/time seen: 05/13/24 08:35 Interval history: Patient underwent peritoneal dialysis today. Patient has been transfused 1 unit of packed RBC due to her hemoglobin 6.4. Patient repeat HgB is 7.4 after the transfusion. Spoke with who accept the patient and bed is ready and will be transferred soon to [facility]. Review of Systems Review of Systems: Wound discoloration and foul smell Constitutional: Constitutional: Denies chills, Denies fever(s), Denies malaise and Denies night sweats Exam Narrative: laying in a stretcher Const: General: comfortable, no acute distress, well developed, alert, awake, average body habitus and obese Nutritional Appearance: average body habitus and obese morbidly obese Orientation/consciousness: patient oriented x3 HENMT: Head: normal to inspection, normocephalic and atraumatic Ears: hearing grossly normal bilaterally Face/Nose/Sinus: normal facial exam Face and sinus: normal facial exam Eyes: General: appearance normal, both eyes and all related structures Pupils: Equal, round and reactive pupils present EOM: EOMs intact bilaterally Neck: Neck: full ROM, no lymphadenopathy and no JVD Thyroid: thyroid normal Lymphatic: no lymphadenopathy noted Resp: Effort & Inspection: normal respiratory effort and able to speak in complete sentences Auscultation: clear to auscultation bilaterally Cardio: Jugular venous distension: no JVD Rate: regular rate Rhythm: regular rhythm Heart sounds: S1 normal heart sound present and S2 normal heart sound present : General: Yes deferred Skin: General skin exam: amputation site Rashes: no rashes Wounds: no wounds and amputation site right 2nd toe bed schwartz and necrotic, malodorous and open, right 3rd toe bed, malodorous and open, right 4th toe bed schwartz and necrotic, malodorous and open Neuro: General: patient oriented x3 and CN's II-XI intact bilaterally Cranial nerves: Yes CN's II-XII intact bilaterally and Yes Equal, round and reactive pupils present Cognition (Neuro): normal cognition Speech: normal speech Gait exam (Neuro): Normal gait present Motor exam (neuro): 5/5 motor strength present throughout Extrem: General: normal to inspection, full ROM, no joint enlargement and no pedal edema Right lower extremity: foot Details: abnormal to inspection Details: other ( open necrotic wound site of amputation) Objective Data Vital Signs Vital Signs: Vital Signs - 24 hr 05/12/24 10:47 05/12/24 11:22 05/12/24 10:00 Temperature 98.2 F Pulse Rate 98 105 H 111 H Respiratory Rate 20 Blood Pressure 133/74 Pulse Oximetry 97 Oxygen Delivery 05/12/24 12:00 05/12/24 12:00 05/12/24
[2024-05-13] MEDS: ATORVASTATIN 40 MG TABLET PO (08:44)
[2024-05-13] MEDS: allopurinoL 300 MG TABLET PO (08:44)
[2024-05-13] MEDS: SOD HYPOCHLORITE 1/4 STRENGTH 473 ML 1 APPLIC TOPICAL (08:46)
[2024-05-13] MEDS: INSULIN GLARGINE (*BKC) 100 UNITS/ML 24 UNITS SUB-Q (10:07)
[2024-05-13] MEDS: TUBING, BLOOD PLUM PUMP TUBING 1 EACH XX (10:55)
[2024-05-13] MEDS: ACETAMINOPHEN 325 MG TABLET 650 MG PO (11:36)
[2024-05-13 11:56] LABS: Lactate Dehydrogenase 125 U/L (120-246)
[2024-05-13 11:59] LABS: Glucose Point of Care 194 mg/dl (65-105)
--- NOTE | 2024-05-13 13:08 | PM.PNNEP ---
Subjective Date/time seen: 05/13/24 13:08 Interval history: Follow-up for end stage renal disease on peritoneal dialysis. Tolerated peritoneal dialysis treatment overnight without any issues or problems (PD supervised overnight and seen at 1:00PM); no significant ultrafiltration (actually absorbed some fluid); low H/H this AM with subsequent PRBC transfusion; issues with hypotension noted which apparently has been noted as an outpatient as well. Exam Narrative: General: large and WD/WN female in NAD Heart: normal S1 and S2; no rub Lungs: clear anteriorly Abdomen: soft, nontender, nondistended, positive bowel sounds Extremities: no cyanosis or clubbing; right foot edema Skin: right foot dressings in place Objective Data Vital Signs Vital Signs: Vital Signs Temp Pulse Resp BP Pulse Ox O2 Del Method 05/13/24 12:43 99.6 F 107 H 20 102/63 95 05/13/24 12:42 99.6 F 107 H 20 102/63 95 05/13/24 12:00 Room Air 05/13/24 12:00 93 05/13/24 12:07 98.5 F 100 20 106/52 L 95 05/13/24 11:36 100.5 F H 05/13/24 11:10 100.5 F H 103 H 24 H 107/40 L 93 05/13/24 08:00 Room Air 05/13/24 10:45 99.4 F 96 18 105/44 L 97 05/13/24 08:40 97 05/13/24 07:56 97.9 F 100 18 90/60 L 95 05/13/24 06:00 100 05/13/24 04:00 105 H 05/13/24 04:19 98.4 F 99 18 108/44 L 95 05/13/24 03:50 105 H 18 93 Room Air 05/13/24 02:00 105 H 05/13/24 00:00 112 H 05/13/24 00:00 100 18 93 Room Air 05/12/24 23:59 97.8 F 100 18 102/52 L 93 05/12/24 21:59 106 H 05/12/24 20:00 101 H 05/12/24 20:50 123 H 18 95 Room Air 05/12/24 20:47 123 H 05/12/24 19:44 98.6 F 103 H 18 124/66 95 05/12/24 18:00 106 H 05/12/24 16:00 100.3 F H 113 H 20 108/49 L 96 05/12/24 16:00 Room Air 05/12/24 16:00 110 H Intake/Output Intake/Output: Intake & Output 05/10/24 05/11/24 05/12/24 05/13/24 23:59 23:59 23:59 23:59 Intake Total 1150 1250 1803 Output Total 0 Balance 1150 1250 1803 Meds/Results Medications: Active Medications Generic Name Dose Route Start Last Admin Trade Name Freq PRN Reason Stop Dose Admin Acetaminophen 650 mg 05/11/24 21:10 05/13/24 11:36 Acetaminophen 325 Mg Tablet PO 650 mg Q4H PRN Administration Mild Pain (1-3) or Fever Hydrocodone Bitart/Acetaminophen 1 tab 05/11/24 21:10 Hydrocodone/Acetaminophen (*Crx) 5-325 Mg Tablet PO Q4H PRN Pain Rated 4-6 Allopurinol 300 mg 05/12/24 09:00 05/13/24 08:44 Allopurinol 300 Mg Tablet PO 300 mg DAILY PERLA Administration Atorvastatin Calcium 40 mg 05/12/24 09:00 05/13/24 08:44 Atorvastatin 40 Mg Tablet PO 40 mg DAILY PERLA Administration Carvedilol 6.25 mg 05/12/24 09:00 05/13/24 08:40 Carvedilol 6.25 Mg Tablet PO Not Given Q12HR PERLA Cyclobenzaprine HCl 10 mg 05/12/24 02:31 Cyclobenzaprine Hcl 10 Mg Tablet PO HS PRN Muscle Spasm Doxepin HCl 25 mg 05/12/24 02:31 Doxepin Hcl 25 Mg Capsule PO QHS PRN itching Furosemide 80 mg 05/12/24 09:00 05/12/24 17:28 Furosemide 80 Mg Tablet PO 80 mg BID PERLA Administration Gabapentin 300 mg 05/12/24 21:00 05/12/24 20:48 Gabapentin 300 Mg Capsule PO 300 mg HS PERLA Administration Gentamicin Sulfate 1 applic 05/12/24 21:00 05/12/24 20:48 Gentamicin Sulfate 0.1% Cr 15 Gm Tube TOPICAL 1 applic QHS PERLA Administration Meropenem 500 mg in 100 mls @ 200 mls/hr 05/12/24 21:00 05/12/24 21:20 IVPB Infused DAILY@2100 PERLA Infusion Sodium Chloride 250 mls @ 30 mls/hr 05/13/24 08:30 Normal Saline Iv IV CONT 05/13/24 16:49 .Q8H20M STA Insulin Glargine 24 units 05/12/24 09:00 05/13/24 10:07 Insulin Glargine (*Bkc) 100 Units/Ml SUB-Q 06/11/24 08:59 24 units DAILY PERLA Administration Insulin Human NPH 35 units 05/12/24 21:00
[2024-05-13] MEDS: SODIUM CHLORIDE 0.9% IV 250 ML 30 ML IV CONT (14:30)
--- NOTE | 2024-05-13 14:41 | PC.NURSE ---
Dr. Madden notified of pt's most recent BP following blood transfusion (80/40). Per Dr. Madden, he will look through the chart and change orders as needed.
[2024-05-13] MEDS: MIDODRINE HCL 10 MG TABLET PO (15:24)
[2024-05-13 16:20] LABS: Glucose Point of Care 211 mg/dl (65-105)
[2024-05-13 16:29] LABS: Hematocrit 23.5 % (37.0-47.0); Hemoglobin 7.4 g/dL (12.0-15.0)
[2024-05-13] MEDS: MIDODRINE HCL 2.5 MG TABLET 5 MG PO (17:43)
[2024-05-13] MEDS: SEVELAMER CARBONATE 800 MG TABLET 2400 MG PO (17:43)
--- NOTE | 2024-05-13 18:05 | PC.NURSE ---
Received confirmation of a bed available on the 3rd floor, room 311, at [facility] for this pt. Accepting provider is Dr. Tammy Nolasco. Transfer orders placed in the computer by Dr. MÉNDEZ and this nurse gave report to Jaun Wei RN at [facility] at 1715. Ambulance arrived at [facility] for the transfer of this pt at 1800. Pt left the unit at 1805.
--- NOTE | 2024-05-13 18:30 | PM.TDS ---
Transfer Discharge Sum: Prov Provider Date of admission: 05/12/24 07:59 Primary care physician: Marlo Chavis APRN Admitting clinician: Laura Murphy MD Consults: 05/11/24 21:12 Consult to Physician Routine Comment: Consulting Provider: Rin Maloney Reason for consultation: necrotic foot wound Has provider been notified: Yes 05/11/24 21:13 Consult to Physician Routine Comment: Consulting Provider: Parveen Madden Reason for consultation: ckd on peritoneal dialysis Has provider been notified: Yes 05/12/24 Wound/ET Consult Routine Reason for Consult:: necrotic wound, recent amputation of right 2, 3, and 4th toes DS: Admitting Diagnosis Discharge Date 05/13/24 Admitting Diagnosis Osteomyelitis DS: Discharge Diagnosis Discharge Diagnosis (1) Necrosis of surgical wound: Code(s): I97.89 - Other postprocedural complications and disorders of the circulatory system, not elsewhere classified; I96 - Gangrene, not elsewhere classified Status: Acute Assessment and Plan: admit to IMU patient started on Merrem vanc and clindamycin awaiting bed at outside facility where surgery was performed (2) ESRD on peritoneal dialysis: Code(s): N18.6 - End stage renal disease; Z99.2 - Dependence on renal dialysis Status: Acute Assessment and Plan: continue peritoneal dialysis nephrology consult (3) Morbid (severe) obesity due to excess calories: Code(s): E66.01 - Morbid (severe) obesity due to excess calories Status: Acute Assessment and Plan: lifestyle and diet modifications (4) Benign essential hypertension: Code(s): I10 - Essential (primary) hypertension Status: Acute Assessment and Plan: resume home meds as needed (5) Diabetic peripheral neuropathy associated with type 2 diabetes mellitus: Code(s): E11.42 - Type 2 diabetes mellitus with diabetic polyneuropathy Status: Acute Assessment and Plan: continue gabapentin Transfer Discharge Sum: Med Medications Active and Home Medications: Home Medications calcium 600 mg (as carbonate)-vit D3 10 mcg (400 unit)-minerals tablet 1 tablet PO BID 09/08/19 [History Confirmed 05/11/24] multivitamin 1 tablet PO DAILY 09/08/19 [History Confirmed 05/12/24] omega-3 fatty acids 1,000 mg capsule (Fish Oil Concentrate) 1,000 mg PO DAILY #90 caps 07/12/21 [Rx Confirmed 05/12/24] atorvastatin 40 mg tablet 40 mg PO DAILY #90 tabs 01/02/22 [Rx Confirmed 05/11/24] allopurinol 300 mg tablet 300 mg PO DAILY #90 tabs 03/27/22 [Rx Confirmed 05/11/24] carvedilol 6.25 mg tablet 6.25 mg PO Q12H 02/06/23 [History Confirmed 05/11/24] furosemide 80 mg tablet 80 mg PO BID 05/09/23 [History Confirmed 05/12/24] vitamin B comp no.3-folic acid 1 mg-vit C 60 mg-biotin 300 mcg tablet (Halie-Justo Rx) 1 tablet PO DAILY 05/09/23 [History Confirmed 05/12/24] sevelamer HCl 800 mg tablet 1,600 mg PO DAILY 08/05/23 [History Confirmed 05/11/24] insulin degludec 200 unit/mL (3 mL) subcutaneous pen (Tresiba FlexTouch U-200 insulin) 24 unit (0.12 mL) subcut DAILY #9 mL 11/20/23 [Rx Confirmed 05/12/24] insulin lispro 100 unit/mL subcutaneous pen (Humalog KwikPen (U-100) Insulin) See Rx Instructions subcut .COMPLEX #75 mL 04/07/24 [Rx Confirmed 05/11/24] cyclobenzaprine 10 mg tablet 10 mg PO HS PRN Muscle Spasm 05/11/24 [History Confirmed 05/11/24] doxepin 25 mg capsule 25 mg PO QHS PRN itching 05/11/24 [History Confirmed 05/11/24] gabapentin 300 mg capsule 300 mg PO HS 05/11/24 [History Confirmed 05/12/24] insulin NPH isoph U-100 human 100 unit/mL (3 mL) subcutaneous pen (Humulin N NPH U-100 Insulin KwikPen) 35 unit subcut HS 05/11/24 [History Confirmed 05/12/24] sevelamer carbonate 800 mg tablet 2,400 mg PO BIDAC 05/11/24 [History Confirmed 05/11/24] Transfer Discharge Sum: Hosp Hospital Course Hospital course: Karla Talbot is a 58 year old female who presents ER with reports of low blood pr
--- NOTE | 2024-05-14 08:49 | PM.PNGS ---
Progress Note: A&P Assessment and Plan (1) Necrosis of surgical wound: Code(s): I97.89 - Other postprocedural complications and disorders of the circulatory system, not elsewhere classified; I96 - Gangrene, not elsewhere classified Status: Acute Assessment and Plan: Nonhealing surgical wound with extensive necrosis, foot xray suggest osteomyelitis of underlying bone, will likely need further amputation, cont abx for now and local wound care pat [place], awaiting transfer back to vascular surgery at [facility] (2) Diabetic peripheral neuropathy associated with type 2 diabetes mellitus: Code(s): E11.42 - Type 2 diabetes mellitus with diabetic polyneuropathy Status: Acute (3) ESRD on peritoneal dialysis: Code(s): N18.6 - End stage renal disease; Z99.2 - Dependence on renal dialysis Status: Acute Subjective Subjective Date/Time Seen: 05/13/24 10:49 Patient reports: no new complaints and afebrile Interval history: Patient without any acute events overnight. Still waiting bed placement at [facility]. Staff has called again this morning. Exam Narrative: Right foot s/p 2nd, 3rd, 4th toe amputations with open wound and 2nd-4th metatarsal exposed with entire wound bed containing necrotic tissue and foul odor. No surrounding cellulitis extending proximally onto the foot. 5th toe is purple and indurated with a small 0.5 cm black eschar on the lateral aspect of the toe. Unchanged exam from yesterday. Objective Data Vital Signs Vital Signs: Vital Signs - 24 hr 05/13/24 10:45 05/13/24 11:10 05/13/24 11:36 Temperature 99.4 F 100.5 F H 100.5 F H Pulse Rate 96 103 H Respiratory Rate 18 24 H Blood Pressure 105/44 L 107/40 L Pulse Oximetry 97 93 Oxygen Delivery 05/13/24 12:07 05/13/24 12:00 05/13/24 12:00 Temperature 98.5 F Pulse Rate 100 93 Respiratory Rate 20 Blood Pressure 106/52 L Pulse Oximetry 95 Oxygen Delivery Room Air 05/13/24 12:42 05/13/24 12:43 05/13/24 13:21 Temperature 99.6 F 99.6 F 98.3 F Pulse Rate 107 H 107 H 99 Respiratory Rate 20 20 18 Blood Pressure 102/63 102/63 106/55 L Pulse Oximetry 95 95 95 Oxygen Delivery 05/13/24 14:21 05/13/24 15:57 05/13/24 12:30 Temperature 97.9 F 99.2 F 99.4 F Pulse Rate 104 H 101 H Respiratory Rate 20 20 Blood Pressure 84/42 L 114/57 L Pulse Oximetry 95 96 Oxygen Delivery 05/13/24 16:00 Temperature Pulse Rate Respiratory Rate Blood Pressure Pulse Oximetry Oxygen Delivery Room Air Intake/Output Intake/Output: Intake & Output 05/11/24 05/12/24 05/13/24 05/14/24 23:59 23:59 23:59 23:59 Intake Total 1150 1250 2443 Output Total 0 Balance 1150 1250 2443 Meds/Results Radiology Results: ITS Impressions Foot X-Ray 05/11/24 18:07 IMPRESSION: 1. Status post second-fourth right toe indications with soft tissue gas and osteolysis along the heads of the fourth and more subtly at the second and third metatarsals consistent with osteomyelitis. Labs Labs: Laboratory Results - last 24 hr 05/12/24 05/13/24 05/13/24 10:02 11:14 11:42 Hgb Hct POC Capillary Glucose 194 H Lactate Dehydrogenase 125 Blood Type A Positive Antibody Screen Negative Crossmatch See Detail 05/13/24 05/13/24 16:00 16:25 Hgb 7.4 L Hct 23.5 L POC Capillary Glucose 211 H Lactate Dehydrogenase Blood Type Antibody Screen Crossmatch
[2024-05-16 08:34] LABS: Haptoglobin 630 mg/dL (43-212)
== END 2024-05-13 18:05 | disposition short-term general hospital (02) | DRG 564 ==
LOC: ANHED 21:38 → ANHIMU 21:43
PROVIDERS: Internal Medicine Nephrology; Admitting Provider Internal Medicine; Emergency Provider Emergency Medicine; PCP Nurse Practitioner; Visit Provider General Practice
DX: T87.53 Necrosis of amputation stump, right lower extremity (principal); N18.6 End stage renal disease; I96 Gangrene, not elsewhere classified; M86.9 Osteomyelitis, unspecified; E11.52 Type 2 diabetes mellitus with diabetic peripheral angiopathy with gangrene; Z68.41 Body mass index [BMI] 40.0-44.9, adult; T81.89XA Other complications of procedures, not elsewhere classified, initial encounter; T87.81 Dehiscence of amputation stump; E11.22 Type 2 diabetes mellitus with diabetic chronic kidney disease; E11.42 Type 2 diabetes mellitus with diabetic polyneuropathy; E55.9 Vitamin D deficiency, unspecified; I95.9 Hypotension, unspecified; E66.01 Morbid (severe) obesity due to excess calories; Z99.2 Dependence on renal dialysis; Z89.421 Acquired absence of other right toe(s); Z79.4 Long term (current) use of insulin
CPT/HCPCS: 36415; 36430; 73630; 80053; 80202; 82565; 82948; 83010; 83605; 83615; 83735; 84100; 84145; 85014; 85018; 85025; 85027; 85610; 85730; 86140; 86706; 86850; 86900; 86901; 86923; 87040; 87340; 87641; 90945; 93306; 96361; 96365; 96366; 96367; 96375; 99285; A9270; G0378; J1815; J2185; J2270; J3370; J7030; J7050; P9016

== ENCOUNTER 2024-11-18 11:29 | Outpatient (CLI) | payer MEDICARE, SELFPAY ==
--- NOTE | ~2024-11-18 | US_ITS ---
Ultrasound of the right lower quadrant abdominal region CLINICAL HISTORY: Palpable abnormality FINDINGS: No discrete mass lesion or fluid collection seen at the area of palpable concern. Trace asc ites noted in the right lower quadrant. IMPRESSION: No abnormal mass lesion or fluid collection seen in the abdominal wall at the region of concern. Small amount of ascites in the right lower quadrant. Reviewed, dictated and finalized at location M. IMPRESSION: No abnormal mass lesion or fluid collection seen in the abdominal wall at the r egion of concern. Small amount of ascites in the right lower quadrant.
== END 2024-11-18 11:30 | disposition home or self-care (01) ==
LOC: MICIMG 11:30
PROVIDERS: PCP Nurse Practitioner; Visit Provider Nurse Practitioner
DX: R19.00 Intra-abdominal and pelvic swelling, mass and lump, unspecified site (principal)
CPT/HCPCS: 76705

== ENCOUNTER 2024-12-04 08:36 | Outpatient (CLI) | payer MEDICARE, SELFPAY ==
--- NOTE | ~2024-12-04 | CT_ITS ---
Non-contrast CT scan of the Abdomen and Pelvis Clinical indication: Intra-abdominal swelling or mass Technique: 2.5 mm axial scans were obtained through the abdomen and pelvis without intravenous or or al contrast. Dose reduction technique was used on this scan by utilizing automated exposure control a nd iterative reconstruction technique. The dose-length product (DLP) was 1064.93 mGy-cm. Findings: Images through the lung bases reveal no abnormalities. There is no evidence of renal or ureteral calculi. The kidneys and the ureters are nondilated. The liver, spleen, pancreas, and adrenals appear normal. Cholelithiasis noted. There is no aortic ane urysm. There is no evidence of bowel obstruction. Evidence of prior gastric surgery. Images through the pelvis were performed. Bulky uterus suggests fibroids. Urinary bladder unremarkabl e. Moderate abdominopelvic ascites present. Moderate to large umbilical hernia contains fat and ascit ic fluid, but no bowel involvement. Probable peritoneal dialysis catheter present. Impression: Moderate abdominopelvic ascites, likely related to presence of peritoneal dialysis catheter. Bulky uterus suggests fibroids. Cholelithiasis. Reviewed, dictated and finalized at location . Impression: Moderate abdominopelvic ascites, likely related to presence of peritoneal dialy sis catheter. Bulky uterus suggests fibroids. Cholelithiasis.
== END 2024-12-04 08:37 | disposition home or self-care (01) ==
LOC: MICIMG 08:37
PROVIDERS: PCP Nurse Practitioner; Visit Provider Nurse Practitioner
DX: R19.00 Intra-abdominal and pelvic swelling, mass and lump, unspecified site (principal); K80.20 Calculus of gallbladder without cholecystitis without obstruction
CPT/HCPCS: 74176

== ENCOUNTER 2025-02-14 12:54 | Emergency (ER) | payer MEDICARE, SELFPAY ==
[2025-02-14] VITALS (38 sets, daily range): BP systolic 94–127; BP diastolic 47–63; PULSE 89–138; RESP 14–27; TEMP 36.6; O2SAT 88–99
--- NOTE | ~2025-02-14 | CT_ITS ---
EXAMINATION: CT chest abdomen pelvis wo con DATE: 02/14/2025 14:59 INDICATION: cp, abd pain, vomiting . TECHNIQUE: Computed tomography (CT) of the chest, abdomen, and pelvis was performed without intraveno us contrast. Automated exposure control and iterative reconstruction technique were employed. The dos e-length product was 1691.46 mGy-cm. COMPARISON: 12/04/2024 FINDINGS: CHEST: Thoracic aorta: No significant dilation. Mild atherosclerotic calcification. Lung parenchyma and airways: Lungs and airways are otherwise clear. Thoracic inlet, axillae and chest wall: 1.6 cm partially calcified right thyroid nodule. No axillary lymphadenopathy. Mediastinum: No mass or lymphadenopathy. Heart and pericardium: Normal heart size. Small pericardial effusion. Coronary artery calcifications: Heavy. Pleura: No effusion or mass. Thoracic bones: No acute osseous finding in the chest. ABDOMEN/PELVIS: Liver: Enlarged. Nodular liver border Biliary/Gallbladder: Cholelithiasis. No inflammatory change No bile duct dilation. Pancreas: No mass or duct dilation. Spleen: Mild splenomegaly Adrenals:No mass. Kidneys: No suspicious mass, obstructing stone, or hydronephrosis. Bilateral renal atrophy. Simple ri ght renal cysts. GI tract: No small or large bowel dilation. Normal appendix. Mesentery/Peritoneum: No free air or mass. Moderate volume ascites Retroperitoneum: No mass Atherosclerotic calcifications of intra-abdominal arterial vessels. Pelvis: Mostly empty urinary bladder. Large uterus with lobular contours. Normal bilateral ovaries. Soft Tissues: Mild body wall edema. Large fat and fluid containing umbilical hernia. Peritoneal dialy sis catheter over the right abdomen. Abdominopelvic bones: No acute osseous finding in the abdomen/pelvis. IMPRESSION: 1.6 cm right thyroid nodule, recommend outpatient thyroid ultrasound for further characterization. Small pericardial effusion. Cirrhosis with evidence of portal hypertension. Enlarged lobular uterus, likely secondary to fibroid disease. Large fat and fluid containing umbilical hernia. Moderate ascites. Reviewed, dictated and finalized at location K. IMPRESSION: 1.6 cm right thyroid nodule, recommend outpatient thyroid ultrasound for furthe r characterization. Small pericardial effusion. Cirrhosis with evidence of portal hypertension. Enlarged lobular uterus, likely secondary to fibroid disease. Large fat and fluid containing umbilical hernia. Moderate ascites.
--- NOTE | ~2025-02-14 | XR_ITS ---
EXAMINATION: XR chest 2V Exam Date/Time: 02/14/2025 13:40 CDT HISTORY: chest pain Comparison: 12/24/2022. RESULT: Lines, tubes, and devices: None. Lungs and pleura: Low volumes with crowding, otherwise clear. Cardiomediastinal silhouette: Stable. Other: No acute osseous or upper abdominal finding. IMPRESSION: No acute cardiopulmonary process. Reviewed, dictated and finalized at location K.
--- NOTE | ~2025-02-14 | XR_ITS ---
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 COMPARISON: None available. FINDINGS: Osteopenia. Severe arthritic changes in the midfoot joints with erosive appearing change a nd sclerosis. Extensive soft tissue and vascular calcifications. Status post great toe amputation. Er osive changes at the first metatarsal head no fracture or dislocation. Surgical clip versus foreign b nessa in the soft tissues of the ball of foot between the second and third toes IMPRESSION: Severe osteopenia. Neuropathic arthropathy of the foot. Radiographic findings concerning for osteomyelitis involving the first metatarsal head. Surgical clip versus foreign body in the soft tissues of the ball of foot between the second and third toes. Reviewed, dictated and finalized at location K. IMPRESSION: Severe osteopenia. Neuropathic arthropathy of the foot. Radiographi c findings concerning for osteomyelitis involving the first metatarsal head. Caba rgical clip versus foreign body in the soft tissues of the ball of foot between the second and third toes.
--- NOTE | 2025-02-14 13:08 | ECG_ITS ---
Test Date: 2025-02-14 13:27:59 Measurements Intervals [place] Rate: 92 P: -5 SC: 160 QRS: 70 QRSD: 97 T: 42 QT: 353 QTc: 439 Interpretive Statements SINUS RHYTHM NONSPECIFIC T-WAVE ABNORMALITIES No previous ECG available for comparison Electronically Signed On 02-14-2025 18:04:41 CDT by Gui Guillen M.D.
[2025-02-14 13:47] LABS: Hematocrit 30.1 % (37.0-47.0); Hemoglobin 9.1 g/dL (12.0-15.0); Immature Granulocyte Percent A 2.4 % (0-0.5); Lymphocytes Absolute Auto 1.27 K/mm3 (0.9-3.2); Mean Corpuscular HGB Conc 30.2 g/dl (32-36); Mean Corpuscular Hemoglobin 29.8 pg (26-34); Mean Corpuscular Volume 98.7 fl (80-100); Nucleated Red Blood Cells Absolute Auto 0.020 K/mm3 (0.0-0.012); Nucleated Red Blood Cells Perc 0.1 % (0.0-0.2); Platelet Count Result 350 k/mm3 (150-375); Red Blood Count 3.05 M/mm3 (4.2-5.4); White Blood Count 24.8 K/mm3 (4.5-10.0)
[2025-02-14 13:58] LABS: INR 1.1; Prothrombin Time 14.4 Seconds (11.1-14.7)
[2025-02-14 13:59] LABS: Partial Thromboplastin Time 35.8 Seconds (22.3-36.8)
[2025-02-14 14:06] LABS: Alanine Aminotransferase 18 U/L (6-35); Albumin Level 4.0 g/dL (3.5-5.1); Alkaline Phosphatase 137 U/L (38-126); Anion Gap 17 mmol/L (4-12); Aspartate Amino Transferase 24 U/L (14-36); Bilirubin,Total 0.4 mg/dL (0.2-1.3); Blood Urea Nitrogen 56 mg/dL (7-17); Calcium 9.4 mg/dL (8.4-10.2); Carbon Dioxide 26 mmol/L (22-30); Chloride 92 mmol/L (98-107); Estimated CRCL calculation 7 ml/min; Estimated Glomerular Filt Rate 4; Glucose 203 mg/dL (65-110); Lipase 147 U/L (23-300); Potassium 4.1 mmol/L (3.4-5.0); Sodium 135 mmol/L (137-145); Total Protein 7.9 g/dL (6.3-8.2)
--- OUTSIDE RECORDS SUMMARY | 2025-02-14 14:16 | XMS_ITS | Clinical Summary ---
[facility] Address [address] [place] [address] Care Team Providers Care Agronomist Name Role Phone Juan Bajwa MD Primary Care Provider [phone] Allergies No known active allergies Medications allopurinoL (ZYLOPRIM) 300 mg tablet Take 300 mg by mouth daily. Active amLODIPine-yari rvastatin 5-10 mg tablet Take 1 Tablet by mouth daily. Active atorvastatin (LIPITOR) 40 mg tablet Take 40 mg by mouth daily. Active calcium carbonate (calcium as carbonate) 1,250 mg/5 mL (500 mg elemental/5 mL) Suspension Take by mouth. Active gabapentin (NEURONTIN) 300 mg capsule Take by mouth 3 times daily. Active glipiZIDE (GLUCOTROL) 10 mg tablet Take 10 mg by mouth daily with breakfast. Active VALSARTAN-HYDR OCHLOROTHIAZID E ORAL Take by mouth. Activ e ferrous sulfate 325 mg (65 mg iron) tablet Take 325 mg by mouth daily. Active multivitamin (ONE-A-DAY ESSENTIAL ORAL) Take by mouth. Activ e cyanocobalamin 1,000 mcg Tablet Take 1,000 mcg by mouth daily. Active amLODIPine (NORVASC) 5 mg tablet Take 5 mg by mouth daily. 1 Active cyclobenzaprin e (FLEXERIL) 10 mg tablet TAKE 1 TABLET BY MOUTH AT BEDTIME NEEDED FOR MUSCLE SPASM 1 Active omega-3 acid ethyl esters (LOVAZA) 1 gram Capsule Take 1 Gram by mouth daily. 1 Active traMADoL (ULTRAM) 50 mg tablet tramadol 50 mg tablet Active Levemir FlexTouch U-100 Insuln 100 unit/mL (3 mL) pen syringe INJECT 15 UNITS SUBCUTANEOUSLY EVERY DAY AT BEDTIME 2 Active prochlorperazi ne maleate (COMPAZINE) 10 mg tablet TAKE 1 TABLET BY MOUTH EVERY 8 HOURS NEEDED FOR NAUSEA AND VOMITING 2 Active hydrALAZINE (APRESOLINE) 100 mg Tablet tablet 2 Active BD Integra Syringe 3 mL 25 gauge x 1 SyringeIndicat ions:Anemia of chronic renal failure, stage 4 (severe) (CMS/HCC) Use with Retacrit. Inject 3 ml every 2 weeks. 2 Each 6 3 Active epoetin robert-epbx (Retacrit) 10,000 unit/mL SolutionIndica tions:Anemia of chronic renal failure, stage 4 (severe) (CMS/HCC) Inject 3 mL (30,000 Units) by subcutaneous injection every 2 weeks. 6 mL 4 3 Active Active Problems Problem Noted Date Diagnosed Date Anemia of chronic renal failure, stage 4 (severe ) 04/12/2021 Family History Medical History Relation Name Comments Throat Cancer Father Cervical Cancer Mother Relation Name Status Comments Daughter 1 Alive Daughter 2 Alive heart murmer Father Mother Alive Sister 1 Alive Sister 2 Alive Social History Tobacco Use Types Packs/Day Years Used Date Smoking Tobacco: Never Smokeless Tobacco: Never Tobacco Cessation:Counseling Given: Not Answered Alcohol Use Standard Drinks/Week Comments Never 0 (1 standard drink = 0.6 oz pur e alcohol) Comments No Sex and Gender Information Value Date Recorded Sex Assigned at Not on file Legal Sex Female 2:02 PM CDT Gender Identity Not on file Sexual Orientation Not on file Last Filed Vital Signs Vital Sign Reading Time Taken Comments Blood Pressure 138/82 11/21/2022 3:16 PM CDT Pulse 98 11/21/2022 3:16 PM CDT Temperature 36.6 C (97.9 F) 11/21/2022 3:16 PM CDT Respiratory Rate 12 11/21/2022 3:16 PM CDT Oxygen Saturation 99% 11/21/2022 3:16 PM CDT Inhaled Oxygen Concentration - - Weight 129.8 kg (286 lb 3.2 oz) 11/21/2022 3:16 PM CDT Height 165.1 cm (5' 5) 05/02/2022 8:49 AM CDT Body Mass Index 47.63 05/02/2022 8:49 AM CDT Plan of Treatment Health Maintenance Due Date Last Done Comments DIABETES ANNUAL FOOT EXAM 1984 DIABETES ANNUAL RETINAL EXAM 1984 DIABETES MICROALBUMIN ANNUAL SCREEN 1984 LDL CHOLESTEROL ANNUAL 1984 DTAP/TDAP/TD VACCINES (1 - Tdap) 1985 HEPATITIS B VACCINES (1 of 3 - 19+ 3-dose series) 1985 02/22/2023, 01/23/2023 BREAST CANCER SCREENING 2006 COLORECTAL SCREENING 2011 Colorectal Cancer Screening 2011 FIT-DNA Q 3 years 2011 FIT/FOBT Q 1 year 2011 Flex Sig/CT Colonography Q 5 years 2011 ZOSTER VACCINE (1 of 2) 2016 DIABETES HBA1C Q 6 MONTHS 04/05/2022 10/03/2021 INFLUENZA VACCINE (#1) 2025 06/05/2022 Procedures Procedure Name Priority Date/Time Associated Diagnosis Comments HEMOGLOBIN A1C Routine 10/03/2021 from Last 3 Months or Most Recently Relevant to Health Maintenance Results * HEMOGLOBIN A1C (10/03/2021) Blood us Abstract Provider CHEMISTRY ORDERABLES Final Res ult from Last 3 Months or Most Recently Relevant to Health Maintenance Insurance [facility] MEDICAID Care Teams Agronomist Relationship Specialty Start Date End Date Juan Bajwa MD PCP - General Family Practice 11/21/22
--- OUTSIDE RECORDS SUMMARY | 2025-02-14 14:16 | XMS_ITS | Referral Summary ---
Author Organization [facility] Address [address] [place] [address] Care Team Providers Care Division Leader Name Role Phone Marlo Chavis NP Primary Care Provider [phone] Sarah Pedraza MD Unavailable [phone] Antony Diaz MD Unavailable [phone] Encounters Date Type Department Care Team Description 01/12/2025 Social Work [facility] [address] [place] [address] [address] [place] [address] Igor Wray LCSW 01/12/2025 11:26 AM CDT - 01/12/2025 11:59 PM CDT Hospital Encounter [facility] [address] [place] [id number] Discharge Disposition: Discharge to home or self care 01/12/2025 9:45 AM CDT Office Visit [facility] [address] [place] [address] [address] [place] [address] Panniculitis (Primary Dx); Umbilical hernia without obstruction or gangrene 12/21/2024 [facility] [address] [place] [address] 3rd Floor [address] [place] [address] Malissa South RN from Last 3 Months Allergies Active Allergy Reactions Criticality Noted Date Comments Latex Rash Medium 04/23/2024 Gloves specifically Medications calcium carbonate (OS-ANDIE) 1,500 mg (600 mg elemental) tabletIndicatio ns:Hypocalcemia Prevention Take 1 tablet (1,500 mg total) by mouth 2 (two) times a day Active ferrous sulfate 325 mg (65 mg of elemental iron) tabletIndicatio ns:Iron Deficiency Anemia Take 1 tablet (325 mg total) by mouth 3 (three) times a day Active multivitamin with minerals tabletIndicatio ns:Mineral Deficiency Prevention Take 1 tablet by mouth every morning Active insulin detemir (Levemir FlexPen) 100 unit/mL (3 mL) pen for injectionIndica tions:type 2 diabetes mellitus Inject 15 Units under the skin nightly 10/05/2021 Active hydrALAZINE (APRESOLINE) 100 mg tabletIndicatio ns:hypertension Take 1 tablet (100 mg total) by mouth every morning 12/21/2020 Active prochlorperazin e (COMPAZINE) 10 mg tablet Take 1 tablet (10 mg total) by mouth 12/28/2021 Active atorvastatin (LIPITOR) 40 mg tabletIndicatio ns:hyperlipidem ia Take 1 tablet (40 mg total) by mouth nightly 05/27/2019 Active traMADoL (ULTRAM) 50 mg tabletIndicatio ns:Pain Take 1 tablet (50 mg total) by mouth as needed for pain Active allopurinoL (ZYLOPRIM) 300 mg tabletIndicatio ns:prevention of acute gout attack Take 1 tablet (300 mg total) by mouth every morning 12/30/2020 Active cyclobenzaprine (FLEXERIL) 10 mg tabletIndicatio ns:Muscle Spasm Take 1 tablet (10 mg total) by mouth 3 (three) times a day as needed 01/03/2021 Active gabapentin (NEURONTIN) 300 mg capsuleIndicati ons:Neuropathic Pain Take 1 capsule (300 mg total) by mouth nightly 12/30/2020 Active VALSARTAN-HYDRO CHLOROTHIAZIDE ORALIndications :HTN Take 1 tablet by mouth every morning Active glipiZIDE (GLUCOTROL) 10 mg tabletIndicatio ns:type 2 diabetes mellitus Take 1 tablet (10 mg total) by mouth 2 (two) times a day 01/15/2022 Active epoetin robret-epbx (Retacrit) (10,000 unit/mL) solutionIndicat ions:Anemia NOT associated with chemotherapy, radiation, or ESRD Inject 3 mL (30,000 Units total) under the skin every 2 (two) weeks 11/15/2022 Active mecobalamin (B12 ACTIVE ORAL)Indication s:supplement Take 1 tablet by mouth every morning Active docosahexaenoic acid/epa (FISH OIL ORAL)Indication s:supplement Take 1 capsule by mouth nightly Active cholecalciferol , vitamin D3, (VITAMIN D3 ORAL)Indication s:supplement Take 1 tablet by mouth every morning Active Active Problems Problem Noted Date Diagnosed Date PD catheter dysfunction 12/08/2022 Anemia in chronic kidney disease 01/23/2021 12/03/2022 Chronic kidney disease, stage IV (severe) 202012/03/2022 Type II or unspecified type diabetes mellitus with renal manifestations, uncontrolled(250.42) 01/23/2021 12/03/2022 Corneal scar and opacity 05/05/2015 023 Morbid obesity 06/29/2010 Immunizations Immunization Administration Dates Next Due Hep B Vaccine 02/22/2023,01/23/2023 Social History Tobacco Use Types Packs/Day Years Used Date Smoking Tobacco: Former Cigarettes Q uit: 1986 Smokeless Tobacco: Never Tobacco Cessation:Counseling Given: Not Answered [facility] Sassorities Answer Date Recorded In the past 12 months has Attentive.ly, gas, oil, or water [employer] threatened to shut off services in your home? No 01/12/2025 Social Connection and Isolat ion Panel [NHANES] Answer Date Recorded In a typical week, how many times do you talk on the phone with family, friends, or neighbors? More than three times a week 01/12/2025 How often do you get togethe r with friends or relatives? More than three times a week 01/12/2025 How often do you attend chur ch or presybeterian services? Never 01/12/2025 Do you belong to any clubs o r organizations such as orthodoxy groups, unions, fraternal or athletic groups, or school groups? No 01/12/2025 How often do you attend meet ings of the clubs or organizations you belong to? Never 01/12/2025 Are you , , di vorced, , never , or living with a partner? Living with partner 01/12/2025 AUDIT-C Answer Date Recorded Q1: How often do you have a drink containing alcohol? Never 12/10/2022 Q2: How many drinks containi ng alcohol do you have on a typical day when you are drinking? Patient does not drink Q3: How often do you have si x or more drinks on one occasion? Never 12/10/2022 Overall Financial Resource Strain (CARDIA) Answe r Date Recorded How hard is it for you to pa y for the very basics like food, housing, medical care, and heating? Somewhat hard 01/12/2025 Hunger Vital Sign Answer Date Recorded Within the past 12 months, y ou worried that your food would run out before you got the money to buy more. Often true 01/13/20 25 Within the past 12 months, t he food you bought just didn't last and you didn't have money to get more. Often true 01/12/2025 PRAPARE - Transportation Answer Date Re corded In the past 12 months, has l ack of transportation kept you from medical appointments or from getting medications? No 12/21 In the past 12 months, has l ack of transportation kept you from meetings, work, or from getting things needed for daily living? No 01/12/2025 Housing Stability Vital Sign Answer Neno e Recorded In the last 12 months, was t here a time when you were not able to pay the mortgage or rent on time? No 01/12/2025 In the past 12 months, how m any times have you moved where you were living? 1 01/12/2025 At any time in the past 12 m [facility], were you homeless or living in a chcf (including now)? No 01/12/2025 Personal Safety Answer Date Recorded Have you ever been in or are you currently in a harmful physical or emotional relationship or is someone making you feel afraid or unsafe? Denies 12/14/2022 Comments Unknown Sex and Gender Information Value Date Recorded Sex Assigned at Not on file Legal Sex Female 8:49 AM CLERK ENTRY LEVEL Gender Identity Female 12/12/2022 8:40 PM CDT Sexual Orientation Straight 12/12/2022 8: 40 PM CDT Last Filed Vital Signs Vital Sign Reading Time Taken Comments Blood Pressure 93/79 01/12/2025 9:07 AM CDT Pulse 115 01/12/2025 9:07 AM CDT Temperature 36.1 C (96.9 F) 01/12/2025 9:07 AM CDT Respiratory Rate 18 01/12/2025 9:07 AM CDT Oxygen Saturation 96% 01/12/2025 9:07 AM CDT Inhaled Oxygen Concentration - - Weight 108 kg (238 lb) 01/12/2025 9:07 AM CDT Height 165.1 cm (5' 5) 01/12/2025 9:07 AM CDT Body Mass Index 39.61 01/12/2025 9:07 AM CDT Plan of Treatment Not on file Procedures Procedure Name Priority Date/Time Associated Diagnosis Comments CT BODY OUTSIDE REFERENCE Routine 01/12/2025 11:26 AM CDT SERUM LIPID PANEL Routine 09/24/2014 1:4 9 PM CLERK ENTRY LEVEL from Last 3 Months or Most Recently Relevant to Health Maintenance Results * CT Body Outside Reference (01/12/2025 11:26 AM CDT) Impressions [facility] - 01/12/2025 11:26 AM CDT These images are for Reference purposes only and have not been reviewed by [facility]. There will be no report generated by a [facility] Radiologist. Narrative [facility] - 01/12/2025 11:26 AM CDT EXAMINATION: Images For Reference Purposes Only us Lonnie Ponce MD IMG CT PROCEDURES Final Res ult [facility] * (ABNORMAL) Serum lipid panel (09/24/2014 1:49 PM CLERK ENTRY LEVEL) Cholesterol 178 0 - 200 mg/dl HISTORICAL RESULTS Comment: Interpretive Data Desirable: <200 mg/dL Borderline high: 200-239 mg/dL High: >240 mg/dL Literature Reference: National Cholesterol Education Program (NCEP) Expert Panel on Detection, Evaluation, and Treatment of High Blood Cholesterol in Adults (Adult Treatment Panel III). Circulation 2004; 110:227. Current interpretive data was last revised on 2005. Triglycerides 824(H) 0 - 150 mg/dl HISTORICAL RESULTS Comment: Interpretive Data Desirable: < 150 mg/dL Borderline High: 150 - 199 mg/dL High: > 200 mg/dL Literature Reference: See Cholesterol Current interpretive data was last revised on 07. HDL 29(L) 40 - 199 mg/dl HISTORICAL RESULTS Comment: Interpretive Data Less than 40 mg/dL - low; A major risk factor for heart disease. Greater than or equal to 60 mg/dL - High; considered protective of heart disease. Literature Reference: See Cholesterol Current interpretive data was last revised on 2008. LDL N/A 0 - 129 mg/dl HISTORICAL RESULTS Comment: Cannot be calculated; triglycerides above 400 mg/dL. Cannot be calculated; triglycerides above 400 mg/dL. Interpretive Data Optimal: < 100 mg/dL Near Optimal: 100 - 129 mg/dL Borderline High: 130 - 159 mg/dL High: > 160 mg/dL Literature Reference: See Cholesterol Current interpretive data was last revised on 07. Non-HDL cholesterol, calculated 149 mg/dl HISTORICAL RESULTS Comment: Interpretive Data When triglycerides are >200 mg/dL, non-HDL C is a secondary target of therapy, with a goal 30 mg/dL higher than the identified LDL-C goal. Reference: See Cholesterol Reference. Current interpretive data was last revised 2012. Serum 09/24/2014 1:49 PM CLERK ENTRY LEVEL Tino Zhu NP LAB BLOOD ORDERABLES Final Result HISTORICAL RESULTS from Last 3 Months or Most Recently Relevant to Health Maintenance Insurance [facility] MEDICARE ADVANTAGE IDPA [facility] MEDICARE ADVANTAGE Care Teams Division Leader Relationship Specialty Start Date End Date Marlo Chavis NP [address] [place] [address] PCP - General Nurse Practitioner 12/12/22 Sarah Pedraza MD [address] [facility] [address] [place] [address] Consulting Physician Trauma Surgery 12/14/22 Antony Diaz MD [address] [place] [address] Referring Physician Nephrology 02/28/23
--- OUTSIDE RECORDS SUMMARY | 2025-02-14 14:16 | XMS_ITS | Clinical Summary ---
Author Organization [facility] Kimberly utinanette Address [address] [address] Phone Care Team Providers Care Maintenance Department Technician Name Role Phone Carlos Olivas Primary Care Provider [phone] Allergies No known active allergies Medications ferrous sulfate 325 (65 Fe) MG tablet daily Active valsartan-hydr oCHLOROthiazid e (DIOVAN-HCT) 320-12.5 MG per tablet 1 Active traMADol (ULTRAM) 50 MG tablet tramadol 50 mg tablet Active hydrALAZINE (APRESOLINE) 100 MG tablet Take 100 mg by mouth 2 (two) times a day 1 Active gabapentin (NEURONTIN) 300 MG capsule Take 300 mg by mouth 1 (one) time each day 1 Active cyclobenzaprin e (FLEXERIL) 10 MG tablet TAKE 1 TABLET BY MOUTH AT BEDTIME NEEDED FOR MUSCLE SPASM 1 Active atorvastatin (LIPITOR) 40 MG tablet atorvastatin 40 mg tablet 9 Active allopurinol (ZYLOPRIM) 300 MG tablet Take 300 mg by mouth 1 (one) time each day 1 Active Santyl 250 UNIT/GM ointment 2 Active calcium carbonate 1250 MG/5ML Take by mouth Active Multiple Vitamins-[place] als (MULTIVITAMIN ADULT EXTRA C PO) Take by mouth Active cyanocobalamin (VITAMIN B-12) 1000 MCG tablet Take 1,000 mcg by mouth daily Active [place] 3 1000 MG capsule Take by mouth daily Active prochlorperazi ne (COMPAZINE) 10 MG tablet TAKE 1 TABLET BY MOUTH EVERY 8 HOURS NEEDED FOR NAUSEA AND VOMITING 2 Active glipiZIDE (GLUCOTROL) 10 MG tablet Take 10 mg by mouth 2 (two) times a day 2 Active amLODIPine (NORVASC) 5 MG tablet amlodipine 5 mg tablet TAKE 1 TABLET BY MOUTH ONCE DAILY Active insulin glargine (Lantus SoloStar) 100 UNIT/ML injection Lantus Solostar U-100 Insulin 100 unit/mL (3 mL) subcutaneous pen INJECT 15 UNITS SUBCUTANEOUSLY IN THE EVENING Active Epoetin Jason-epbx (Retacrit) 14893 UNIT/ML solution Inject 30,000 Units under the skin once every 2 weeks 2 Active Active Problems Problem Noted Date Diagnosed Date Chronic kidney disease, Stage IV (severe) 2020 Diabetes mellitus with renal manifestations, type II or unspecified type, uncontrolled 01/23/2021 Anemia in chronic kidney disease 01/23/2021 Other and unspecified hyperlipidemia 01/23/2021 Immunizations Immunization Administration Dates Next Due Influenza TIV (IM) 06/05/2022 Family History Medical History Relation Comments Kidney disease Neg Hx Social History Tobacco Use Types Packs/Day Years Used Date Smoking Tobacco: Former Smokeless Tobacco: Never Alcohol Use Standard Drinks/Week Comments Not Currently 0 (1 standard drink = 0.6 oz pur e alcohol) Comments Unknown Sex and Gender Information Value Date Recorded Sex Assigned at Not on file Legal Sex Female 11:19 AM MDT Gender Identity Not on file Sexual Orientation Not on file Last Filed Vital Signs Vital Sign Reading Time Taken Comments Blood Pressure 126/70 06/20/2022 11:11 AM OPERATIONS RESEARCH ANALYST Pulse 72 06/20/2022 11:11 AM OPERATIONS RESEARCH ANALYST Temperature 35.8 C (96.4 F) 06/20/2022 11:11 AM OPERATIONS RESEARCH ANALYST Respiratory Rate - - Oxygen Saturation - - Inhaled Oxygen Concentration - - Weight 122 kg (270 lb) 06/20/2022 11:11 AM OPERATIONS RESEARCH ANALYST Height 165.1 cm (5' 5) 06/20/2022 11:11 AM OPERATIONS RESEARCH ANALYST Body Mass Index 44.93 06/20/2022 11:11 AM OPERATIONS RESEARCH ANALYST Plan of Treatment Health Maintenance Due Date Last Done Comments Influenza Vaccine (#1) 2025 06/05/2022 Insurance [employer] MEDICARE [facility] Care Teams Maintenance Department Technician Relationship Specialty Start Date End Date Carlos Olivas DO [address] [place] [address] PCP - General Internal Medicine 12/15/20
--- OUTSIDE RECORDS SUMMARY | 2025-02-14 14:16 | XMS_ITS | Encounter Summary ---
Author Organization [facility] Address [address] [place] [address] Care Team Providers Care Parasitologist Name Role Phone Marlo Chavis NP Primary Care Provider [phone] Antony Diaz MD Unavailable [phone] Marlo Chavis OCCUPATIONAL HEALTH NURSE Primary Care Provider [phone] Reason for Referral * Surgical (Routine) - New Request Specialty Diagnoses / Procedures Referred By Contac t Referred To Contact Diagnoses PVD (peripheral vascular disease) Procedures Case request operating room: DEBRIDEMENT WOUND (RIGHT FOOT), AMPUTATION TOE (RIGHT FIFTH TOE) Bruno Fernandes MD [address] [address] Phone: tel: fax: Referral ID Status Reason Start Date Expiration Date V isits Requested Visits Authorized [id number] New Request 05/14/2024 05/14/2025 1 1 Encounter Details Date Type Department Care Team (Late st Contact Info) Description 05/14/2024 Prep for Procedure [facility], [address] [place], [place] [address] Bruno Fernandes MD Three [facility]. [facility] [address] [place], [place] [id number] Social History Tobacco Use Types Packs/Day Years Used Date Smoking Tobacco: Never Smokeless Tobacco: Never Alcohol Use Standard Drinks/Week Comments Never 0 (1 standard drink = 0.6 oz pur e alcohol) OASIS D0700: Social Isolation Answer Da te Recorded Frequency of experiencing loneliness or isolatio n Never 05/08/2024 OASIS A1250: Transportation Answer Date Recorded Lack of Transportation (Medical) No 05/08/2024 Lack of Transportation (Non-Medical) No 05/08/2024 Patient Unable or Declines to Respond No 05/08/2024 OASIS B1300: Health Literacy Answer Neno e Recorded Frequency of needing help to read materials from doctor or pharmacy Never 05/08/2024 [facility] Utilities Answer Date Recorded In the past 12 months has [facility] [employer], gas, oil, or water [employer] threatened to shut off services in your home? No 05/13/2024 Humiliation, Afraid, Rape, and Kick questionnair e Answer Date Recorded Within the last year, have y ou been afraid of your partner or ex-partner? No 05/13/2024 Within the last year, have y ou been humiliated or emotionally abused in other ways by your partner or ex-partner? No Within the last year, have y ou been kicked, hit, slapped, or otherwise physically hurt by your partner or ex-partner? No 05/13/2024 Within the last year, have y ou been raped or forced to have any kind of sexual activity by your partner or ex-partner? No 05/13/2024 Overall Financial Resource Strain (CARDIA) Answe r Date Recorded How hard is it for you to pa y for the very basics like food, housing, medical care, and heating? Not hard at all 05/13/2024 Hunger Vital Sign Answer Date Recorded Within the past 12 months, y ou worried that your food would run out before you got the money to buy more. Never true 05/13/20 24 Within the past 12 months, t he food you bought just didn't last and you didn't have money to get more. Never true 05/13/2024 PRAPARE - Transportation Answer Date Re corded In the past 12 months, has l ack of transportation kept you from medical appointments or from getting medications? No 04/22 In the past 12 months, has l ack of transportation kept you from meetings, work, or from getting things needed for daily living? No 05/13/2024 Housing Stability Vital Sign Answer Neno e Recorded In the last 12 months, was t here a time when you were not able to pay the mortgage or rent on time? No 05/13/2024 In the past 12 months, how m any times have you moved where you were living? 0 05/13/2024 At any time in the past 12 m [facility], were you homeless or living in a custodial (including now)? No 05/13/2024 Comments No Sex and Gender Information Value Date Recorded Sex Assigned at Female 09/09/2024 2:45 PM ACUTE CARE NURSING ASSISTANT Legal Sex Female 7:51 PM CDT Gender Identity Not on file Sexual Orientation Not on file documented as of this encounter Functional Status * Are you deaf or do you have serious difficulty hearing Answer Date of Assessment Author Status No 05/13/2024 7:21 PM FAINAT Miya Murillo RN Active * Are you blind or do you have serious difficulty seeing, even when wearing glasses? Answer Date of Assessment Author Status No 05/13/2024 7:21 PM FAINAT Miya Murillo RN Active * Do you have serious difficulty walking or climbing stairs? Answer Date of Assessment Author Status No 05/13/2024 7:21 PM Miya Pack RN Active * Do you have difficulty dressing or bathing? Answer Date of Assessment Author Status No 05/13/2024 7:21 PM Miya Pack RN Active * Because of a physical, mental, or emotional condition, do you have difficulty doing errands alone such as visiting a doctor's office or shopping? Answer Date of Assessment Author Status No 05/13/2024 7:21 PM CDT Miya Murillo RN Active documented as of this encounter Mental Status * Because of a physical, mental, or emotional condition, do you have serious difficulty concentrating, remembering, or making decisions? Answer Entry Date Author Status No 05/13/2024 7:21 PM CDT Miya Murillo RN Active documented in this encounter Plan of Treatment Upcoming Encounters Date Type Department Care Team (Late st Contact Info) Description 02/17/2025 9:00 AM CDT Appointment [address] [place] [address] [place] [address] Chula Montes RN 02/19/2025 1:28 PM CDT Hospital Encounter [facility] [address] Bruno Fernandes MD Three [facility]. [address] [id number] 02/19/2025 1:28 PM CDT - 02/19/2025 2:34 PM CDT Surgery [facility] [place], [place] [id number] Bruno Fernandes MD Three [facility]. [address] [address] AMPUTATION TOE (LEFT SECOND TOE) 02/24/2025 8:15 AM CDT Appointment [facility] [place], [place] [address] Anila Godinez APNP [address] [facility] [address] [place] [address] Scheduled Orders Name Type Priority Associated Diagnoses Orde r Schedule Case request operating room: DEBRIDEMENT WOUND (RIGHT FOOT), AMPUTATION TOE (RIGHT FIFTH TOE) Case Request Routine PVD (peripheral vascular disease) Once for 1 Occurrences starting 05/14/2024 until 05/14/2024 Scheduled Procedures Name Priority Associated Diagnoses Date/Ti me AMPUTATION TOE 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 07/22/2024 09/10/2024 COVID-19 Rule Out 09/13/2024 09/13/2024 09/13/2024 11:05 AM ACUTE CARE NURSING ASSISTANT Influenza - Seasonal 09/13/2024 09/13/2024 025 12:32 AM ACUTE CARE NURSING ASSISTANT documented as of this encounter Care Teams Parasitologist Relationship Specialty Start Date End Date Marlo Chavis NP PCP - General NURSE PRACTITIONER 04/23/24 07/29/24 Marlo Chavis NP [address] [facility] [address] [place] [address] PCP - General NURSE PRACTITIONER 07/30/24 Antony Diaz MD [address] [place] [address] Referring Physician NEPHROLOGY 06/01/24 documented as of this encounter
--- OUTSIDE RECORDS SUMMARY | 2025-02-14 14:16 | XMS_ITS | Encounter Summary ---
Author Organization [facility] Address [address] [place] [address] Care Team Providers Care Shipping Manager Name Role Phone Antony Diaz MD Unavailable [phone] Marlo Chavis NP Primary Care Provider [phone] Reason for Referral * Surgical (Routine) - Authorized Specialty Diagnoses / Procedures Referred By Contac t Referred To Contact Diagnoses ESRD (end stage renal disease) on dialysis ([facility]) Procedures Case request operating room: REMOVAL CATHETER (RIGHT IJ) Bruno Fernandes MD [address] [address] Phone: tel: fax: Referral ID Status Reason Start Date Expiration Date V isits Requested Visits Authorized [id number] Authorized 08/31/2024 08/31/2025 1 1 LE GIRL Encounter Details Date Type Department Care Team ([facility] Contact Info) Description 08/31/2024 Prep for Procedure [facility] THREE [facility] [address] [place] [address] Bruno Fernandes MD Three [facility]. [facility] [address] [place] [address] Social History Tobacco Use Types Packs/Day Years Used Date Smoking Tobacco: Never Smokeless Tobacco: Never Alcohol Use Standard Drinks/Week Comments Never 0 (1 standard drink = 0.6 oz pur e alcohol) OASIS D0700: Social Isolation Answer Da te Recorded Frequency of experiencing loneliness or isolatio n Never 08/27/2024 OASIS A1250: Transportation Answer Date Recorded Lack of Transportation (Medical) Yes 08/27/2024 Lack of Transportation (Non-Medical) No 08/27/2024 Patient Unable or Declines to Respond No 08/27/2024 OASIS B1300: Health Literacy Answer Neno e Recorded Frequency of needing help to read materials from doctor or pharmacy Sometimes 08/27/2024 B1300 Health Literacy Answer Date Recor ded How often do you need to hav e someone help you when you read instructions, pamphlets, or other written material from your doctor or pharmacy? Never 07/22/2024 [facility] Utilities Answer Date Recorded In the past 12 months has [facility] [employer], gas, oil, or water [employer] threatened to shut off services in your home? No 07/22/2024 Humiliation, Afraid, Rape, and Kick questionnair e Answer Date Recorded Within the last year, have y ou been afraid of your partner or ex-partner? No 07/22/2024 Within the last year, have y ou been humiliated or emotionally abused in other ways by your partner or ex-partner? No Within the last year, have y ou been kicked, hit, slapped, or otherwise physically hurt by your partner or ex-partner? No 07/22/2024 Within the last year, have y ou been raped or forced to have any kind of sexual activity by your partner or ex-partner? No 07/22/2024 Social Connection and Isolat ion Panel [NHANES] Answer Date Recorded In a typical week, how many times do you talk on the phone with family, friends, or neighbors? More than three times a week 07/22/2024 How often do you get togethe r with friends or relatives? More than three times a week 07/22/2024 How often do you attend chur or congregational services? More than 4 times per year 07/22/2024 Do you belong to any clubs o r organizations such as restorationist groups, unions, fraternal or athletic groups, or school groups? No 07/22/2024 How often do you attend meet ings of the clubs or organizations you belong to? Never 07/22/2024 Are you , , di vorced, , never , or living with a partner? Living with partner 07/22/2024 AUDIT-C Answer Date Recorded Q1: How often do you have a drink containing alcohol? Never 07/22/2024 Q2: How many drinks containi ng alcohol do you have on a typical day when you are drinking? Patient does not drink Q3: How often do you have si x or more drinks on one occasion? Never 07/22/2024 Overall Financial Resource Strain (CARDIA) Answe r Date Recorded How hard is it for you to pa y for the very basics like food, housing, medical care, and heating? Not very hard 07/22/2024 PHQ-2 Answer Date Recorded Patient Health Questionnaire-2 Score 0 07/21/2024 [facility] - Occupational Stress Questionnaire Answer Date Recorded Do you feel stress - tense, restless, nervous, or anxious, or unable to sleep at night because your mind is troubled all the time - these days? To some extent 07/22/2024 Exercise Vital Sign Answer Date Recorde d On average, how many days pe r week do you engage in moderate to strenuous exercise (like a brisk walk)? 7 days 07/22/2024 On average, how many minutes do you engage in exercise at this level? 40 min 07/22/2024 Hunger Vital Sign Answer Date Recorded Within the past 12 months, y ou worried that your food would run out before you got the money to buy more. Sometimes true Within the past 12 months, t he food you bought just didn't last and you didn't have money to get more. Sometimes true 07/2024 PRAPARE - Transportation Answer Date Re corded In the past 12 months, has l ack of transportation kept you from medical appointments or from getting medications? No 07/2024 In the past 12 months, has l ack of transportation kept you from meetings, work, or from getting things needed for daily living? No 07/22/2024 Housing Stability Vital Sign Answer Neno e Recorded In the last 12 months, was t here a time when you were not able to pay the mortgage or rent on time? No 07/22/2024 In the past 12 months, how m any times have you moved where you were living? 0 07/22/2024 At any time in the past 12 m [facility], were you homeless or living in a longterm (including now)? No 07/22/2024 Comments No Sex and Gender Information Value Date Recorded Sex Assigned at Female 09/09/2024 2:45 PM KETTLE GIRL Legal Sex Female 7:51 PM CDT Gender Identity Not on file Sexual Orientation Not on file documented as of this encounter Functional Status * Are you deaf or do you have serious difficulty hearing Answer Date of Assessment Author Status Yes 07/22/2024 12:53 PM Tatiana Ruiz RN Active * Are you blind or do you have serious difficulty seeing, even when wearing glasses? Answer Date of Assessment Author Status No 07/22/2024 12:53 PM Tatiana Ruiz RN Active * Do you have serious difficulty walking or climbing stairs? Answer Date of Assessment Author Status Yes 07/22/2024 12:53 PM Tatiana Ruiz RN Active * Do you have difficulty dressing or bathing? Answer Date of Assessment Author Status No 07/22/2024 12:53 PM Tatiana Ruiz RN Active * Because of a physical, mental, or emotional condition, do you have difficulty doing errands alone such as visiting a doctor's office or shopping? Answer Date of Assessment Author Status Yes 07/22/2024 12:53 PM Tatiana Ruiz RN Active documented as of this encounter Mental Status * Because of a physical, mental, or emotional condition, do you have serious difficulty concentrating, remembering, or making decisions? Answer Entry Date Author Status No 07/22/2024 12:53 PM KETTLE GIRL Vargas, Crystal A, RN Active documented in this encounter Plan of Treatment Upcoming Encounters Date Type Department Care Team (Late st Contact Info) Description 02/17/2025 9:00 AM CDT Appointment [address] [place] [address] Chula Montes RN 02/19/2025 1:28 PM CDT Hospital Encounter [facility] [place] [address] Bruno Fernandes MD Three [facility]. [address] [id number] 02/19/2025 1:28 PM CDT - 02/19/2025 2:34 PM CDT Surgery [facility] [place], [place] [address] Bruno Fernandes MD [address] [address] AMPUTATION TOE (LEFT SECOND TOE) 02/24/2025 8:15 AM CDT Appointment [facility] [place] [address] Anila Godinez APNP [address] [facility] [address] [place] [id number] Scheduled Orders Name Type Priority Associated Diagnoses Orde r Schedule Case request operating room: REMOVAL CATHETER (RIGHT IJ) Case Request Routine ESRD (end stage renal disease) on dialysis ([facility]) Once for 1 Occurrences starting 08/31/2024 until 08/31/2024 Scheduled Procedures Name Priority Associated Diagnoses Date/Ti me AMPUTATION TOE 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, limited to breakdown of skin ([facility]) documented in this encounter Additional Health Concerns Infection Onset Date Last Indicated Resolved Time 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
--- OUTSIDE RECORDS SUMMARY | 2025-02-14 14:16 | XMS_ITS | Encounter Summary ---
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, limited to breakdown of skin ([facility]) Procedures Case request operating room: DEBRIDEMENT WOUND (RIGHT FOOT) Bruno Fernandes MD [address] [address] Phone: tel: fax: Referral ID Status Reason Start Date Expiration Date V isits Requested Visits Authorized [id number] New Request 06/16/2024 06/16/2025 1 1 ITAL UNIT CLERK Encounter Details Date Type Department Care Team (Late st Contact Info) Description 06/16/2024 Prep for Procedure [facility], [facility] [address] [place], [place] [id number] Bruno Fernandes MD Three [facility]. [facility] [address] [place], [place] [id number] Social History Tobacco Use Types Packs/Day Years Used Date Smoking Tobacco: Never Smokeless Tobacco: Never Alcohol Use Standard Drinks/Week Comments Never 0 (1 standard drink = 0.6 oz pur e alcohol) OASIS D0700: Social Isolation Answer Da te Recorded Frequency of experiencing loneliness or isolatio n Rarely 05/20/2024 OASIS A1250: Transportation Answer Date Recorded Lack of Transportation (Medical) No 05/20/2024 Lack of Transportation (Non-Medical) No 05/20/2024 Patient Unable or Declines to Respond No 05/20/2024 OASIS B1300: Health Literacy Answer Neno e Recorded Frequency of needing help to read materials from doctor or pharmacy Rarely 05/20/2024 B1300 Health Literacy Answer Date Recor ded How often do you need to hav e someone help you when you read instructions, pamphlets, or other written material from your doctor or pharmacy? Never 06/02/2024 [facility] Utilities Answer Date Recorded In the past 12 months has [facility] [employer], gas, oil, or water [employer] threatened to shut off services in your home? No 06/02/2024 Humiliation, Afraid, Rape, and Kick questionnair e Answer Date Recorded Within the last year, have y ou been afraid of your partner or ex-partner? No 06/02/2024 Within the last year, have y ou been humiliated or emotionally abused in other ways by your partner or ex-partner? No Within the last year, have y ou been kicked, hit, slapped, or otherwise physically hurt by your partner or ex-partner? No 06/02/2024 Within the last year, have y ou been raped or forced to have any kind of sexual activity by your partner or ex-partner? No 06/02/2024 Social Connection and Isolat ion Panel [NHANES] Answer Date Recorded In a typical week, how many times do you talk on the phone with family, friends, or neighbors? More than three times a week 06/02/2024 How often do you get togethe r with friends or relatives? More than three times a week 06/02/2024 How often do you attend chur ch or buddhism services? 1 to 4 times per year 06/02/2024 Do you belong to any clubs o r organizations such as congregation groups, unions, fraternal or athletic groups, or school groups? Yes 06/02/2024 How often do you attend meet ings of the clubs or organizations you belong to? 1 to 4 times per year 06/02/2024 Are you , , di vorced, , never , or living with a partner? Living with partner 06/02/2024 AUDIT-C Answer Date Recorded Q1: How often do you have a drink containing alcohol? Never 06/02/2024 Q2: How many drinks containi ng alcohol do you have on a typical day when you are drinking? Patient does not drink Q3: How often do you have si x or more drinks on one occasion? Never 06/02/2024 Overall Financial Resource Strain (CARDIA) Answe r Date Recorded How hard is it for you to pa y for the very basics like food, housing, medical care, and heating? Somewhat hard 06/02/2024 [facility] - Occupational Stress Questionnaire Answer Date Recorded Do you feel stress - tense, restless, nervous, or anxious, or unable to sleep at night because your mind is troubled all the time - these days? Patient unable to answer 06/02/2024 Hunger Vital Sign Answer Date Recorded Within the past 12 months, y ou worried that your food would run out before you got the money to buy more. Often true 06/02/20 24 Within the past 12 months, t he food you bought just didn't last and you didn't have money to get more. Often true 06/02/2024 PRAPARE - Transportation Answer Date Re corded In the past 12 months, has l ack of transportation kept you from medical appointments or from getting medications? Yes 05/22 In the past 12 months, has l ack of transportation kept you from meetings, work, or from getting things needed for daily living? Yes 06/02/2024 Housing Stability Vital Sign Answer Neno e Recorded In the last 12 months, was t here a time when you were not able to pay the mortgage or rent on time? No 06/02/2024 In the past 12 months, how m any times have you moved where you were living? 0 06/02/2024 At any time in the past 12 m ont, were you homeless or living in a senior care (including now)? No 06/02/2024 Comments No Sex and Gender Information Value Date Recorded Sex Assigned at Female 09/09/2024 2:45 PM HOSPITAL UNIT CLERK Legal Sex Female 7:51 PM CDT Gender Identity Not on file Sexual Orientation Not on file documented as of this encounter Functional Status * Are you deaf or do you have serious difficulty hearing Answer Date of Assessment Author Status No 06/02/2024 8:13 AM HOSPITAL UNIT CLERK Samantha Silva R N Active * Are you blind or do you have serious difficulty seeing, even when wearing glasses? Answer Date of Assessment Author Status No 06/02/2024 8:13 AM HOSPITAL UNIT CLERK Samantha Silva R N Active * Do you have serious difficulty walking or climbing stairs? Answer Date of Assessment Author Status Yes 06/02/2024 8:13 AM HOSPITAL UNIT CLERK Samantha Silva R N Active * Do you have difficulty dressing or bathing? Answer Date of Assessment Author Status No 06/02/2024 8:13 AM HOSPITAL UNIT CLERK Samantha Silva R N Active * Because of a physical, mental, or emotional condition, do you have difficulty doing errands alone such as visiting a doctor's office or shopping? Answer Date of Assessment Author Status No 06/02/2024 8:13 AM HOSPITAL UNIT CLERK Samantha Silva R N Active documented as of this encounter Mental Status * Because of a physical, mental, or emotional condition, do you have serious difficulty concentrating, remembering, or making decisions? Answer Entry Date Author Status Yes 06/02/2024 8:13 AM HOSPITAL UNIT CLERK Samantha Silva R N Active documented in this encounter Plan of Treatment Upcoming Encounters Date Type Department Care Team (Late st Contact Info) Description 02/17/2025 9:00 AM CDT Appointment [address] [place] [address] [place] [address] Chula Montes RN 02/19/2025 1:28 PM CDT Hospital Encounter [facility] [place] [address] Bruno Fernandes MD Three [place]. [address] [address] 02/19/2025 1:28 PM CDT - 02/19/2025 2:[address] [facility] [place] [address] Bruno Fernandes MD [address] [id number] AMPUTATION TOE (LEFT SECOND TOE) 02/24/2025 8:[address] 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, limited to breakdown of skin ([facility]) documented in this encounter Additional Health Concerns Infection Onset Date Last Indicated Resolved Time 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
--- OUTSIDE RECORDS SUMMARY | 2025-02-14 14:16 | XMS_ITS | Clinical Summary ---
Author Organization [facility] Address [address] [place] [address] Care Team Providers Care Cook Chief Name Role Phone Angel Floyd MD Primary Care Provider [phone] Source Comments [facility],non-owned Affiliates and Associated Physician Practices is amultiple site organization consisting of ambulatory clinics and hospital sitesin [place], [place], [place] and [place]. This disclosure is being madepursuant to the Care Everywhere program and may not contain all information available regarding this patient. Last updated 18.[employer] [facility] Allergies No known active allergies Medications * Be aware that medications may not be up to date on this document. Alwaysverify current medications with the patient. calcium carbonate (Caltrate) 600 MG tablet Take 1 (one) tablet by mouth 2 times daily Active Multiple Vitamins-Mineral s (MULTIVITAMIN ADULTS PO) Active Active Problems Problem Noted Date Diagnosed Date Corneal scar and opacity 05/05/2015 Family History Medical History Relation Name Comments Diabetes Neg Hx Glaucoma Neg Hx Macular Degeneration Neg Hx Social History Tobacco Use Types Packs/Day Years Used Date Smoking Tobacco: Never Tobacco Cessation:Counseling Given: Not Answered Alcohol Use Standard Drinks/Week Comments No 0 (1 standard drink = 0.6 oz pur e alcohol) PHQ-2 Answer Date Recorded PHQ2 TOTAL SCORE 0 07/11/2022 Comments Unknown Sex and Gender Information Value Date Recorded Sex Assigned at Not on file Legal Sex Female 6:11 PM METAL WASHING MACHINE OPERATOR Gender Identity Not on file Sexual Orientation Not on file Last Filed Vital Signs Vital Sign Reading Time Taken Comments Blood Pressure 148/92 07/11/2022 11:05 AM METAL WASHING MACHINE OPERATOR Pulse 78 07/11/2022 10:23 AM METAL WASHING MACHINE OPERATOR Temperature 35.6 C (96 F) 07/11/2022 10:23 AM METAL WASHING MACHINE OPERATOR Respiratory Rate 18 07/11/2022 10:23 AM METAL WASHING MACHINE OPERATOR Oxygen Saturation 98% 07/11/2022 10:23 AM METAL WASHING MACHINE OPERATOR Inhaled Oxygen Concentration - - Weight 123.4 kg (272 lb) 07/11/2022 10:23 AM METAL WASHING MACHINE OPERATOR Height - - Body Mass Index - - Plan of Treatment Health Maintenance Due Date Last Done Comments COLOGUARD (AGES 45-75) - COL ON CA SCREENING 1966 COLON MONITORING 1966 COLONOSCOPY - COLON CA SCREENING 1966 CT COLONOGRAPHY - COLON CA SCREENING 1966 Colorectal Cancer Screening 1966 FIT - COLON CA SCREENING 1966 FLEX SIG - COLON CA SCREENING 1966 LIPID TESTING 1966 MAMMOGRAM 1966 HIV SCREENING 1981 HEPATITIS C SCREENING 09/10/1984 DTAP/TDAP/TD VACCINES (1 - Tdap) 1985 HEPATITIS B VACCINE (1 of 3 - 19+ 3-dose series) 1985 PAP SMEAR 1987 PNEUMOCOCCAL VACCINE 50+ (1 of 1 - PCV) 2016 ZOSTER VACCINE (1 of 2) 2016 COVID-19 VACCINE (1 - 2023-2 5 season) 2024 DEPRESSION SCREENING 07/22/2024 07/11/2022 INFLUENZA VACCINE (#1) 2025 06/05/2022 HIB VACCINE Aged Out No longer eligi ble based on patient's age to complete this topic HPV VACCINE Aged Out No longer eligi ble based on patient's age to complete this topic MENINGOCOCCAL (Group B) VACC INE SHARED DECISION-MAKING Aged Out No longer eligibl e based on patient's age to complete this topic MENINGOCOCCAL GROUPS A/C/Y/W VACCINE Aged Out No longer eligible b ased on patient's age to complete this topic Insurance [facility] Care Teams Cook Chief Relationship Specialty Start Date End Date Angel Floyd MD [address] [place] [address] PCP - General 02/28/15
--- OUTSIDE RECORDS SUMMARY | 2025-02-14 14:16 | XMS_ITS | Clinical Summary ---
Author Organization [facility] Address [address] [place] [address] Care Team Providers Care Biodiesel Production Technician Name Role Phone Marlo hCavis NP Primary Care Provider [phone] Sarah Pedraza MD Unavailable [phone] Antony Diaz MD Unavailable [phone] Allergies Active Allergy Reactions Criticality Noted Date [...] (two) times a day 01/15/2022 Active epoetin robert-epbx (Retacrit) (10,000 unit/mL) solutionIndicat ions:Anemia NOT associated [...] and opacity 05/05/2015 023 Morbid obesity 06/29/2010 Encounters Date Type Department Care Team Description 01/12/2025 11:26 AM CDT - 01/12/2025 11:59 PM CDT Hospital Encounter [facility] [address] [place] [address] Discharge Disposition: Discharge to home or self care 01/12/2025 9:45 AM CDT Office Visit [facility] Acute [facility] Critical Care Services [address] [place] [address] [address] [place] [address] Panniculitis (Primary Dx); Umbilical hernia without obstruction or gangrene 01/12/2025 Social Work [facility] Acute and Critical Care Services [address] [place] [address] [address] [place] [address] Igor Wray LCSW 12/21/2024 Telephone [facility] [address] [place] [address] 3rd Floor [address] [place] [id number] Malissa South RN from Last 3 Months Immunizations Immunization Administration Dates Next Due Hep B Vaccine 02/22/2023,01/23/2023 Surgical History Surgery Date Site/Laterality Comments GASTRIC BYPASS 07/22/2013 - 07/21/2014 SECTION 1990, 1993 HYSTERECTOMY 07/22/2016 - 07/21/2017 COLONOSCOPY Medical History Medical History Date Comments DM (diabetes mellitus) (HCC) HLD (hyperlipidemia) CKD (chronic kidney disease), stage IV (HCC) Gout Family History Medical History Relation Name Comments Cancer Mother Family history of malignant neoplasm - (Added by TW Conv) Relation Name Status Comments Mother Social History Tobacco Use Types Packs/Day Years Used Date Smoking Tobacco: Former Cigarettes Q uit: 1986 Smokeless Tobacco: Never Tobacco Cessation:Counseling Given: Not Answered [facility] Utilities Answer Date Recorded In the past 12 months has [employer], gas, oil, or water [employer] threatened to shut off services in [...] often do you attend chur ch or congregation services? Never 01/12/2025 Do you belong to any clubs o r organizations such as sikh groups, unions, fraternal or athletic groups, or [...] any time in the past 12 m [facility], were you homeless or living in a longterm (including now)? No 01/12/2025 Personal Safety Answer Date Recorded Have you ever been in or are you currently in a harmful physical or emotional relationship or is someone making you feel afraid or unsafe? Denies 12/14/2022 Comments Unknown Sex and Gender Information Value Date Recorded Sex Assigned at Not on file Legal Sex Female 8:49 AM DIESEL TECHNICIAN Gender Identity Female 12/12/2022 8:40 PM CDT Sexual Orientation Straight 12/12/2022 8: 40 PM CDT Obstetrics History Last Filed Vital Signs Vital Sign Reading [...] 01/12/2025 9:07 AM CDT Plan of Treatment Health Maintenance Due Date Last Done Comments Albumin Creatinine Ratio, Urine 1966 Breast Cancer Screening-Mammogram 1966 Colon Cancer Screening-Colonoscopy 1966 Depression Screening 1966 Hemoglobin A1C 1966 Hepatitis C Screening 1966 eGFR 1966 Dilated Eye Exam 1966 Foot Exam 1966 Regular Well Visit/Exam 18-64 1984 Lipid Panel 09/25/2015 09/24/2014, 09/29/2013 Zoster Vaccine (1 of 2) 2016 Covid-19 Vaccine (2023-2 5 season) 2024 05/02/2022, 06/23/2021, 11/07/2020, Additional history exists DTaP/Tdap/Td Vaccine (2 - Td or Tdap) 01/16/2025 01/16/2015 Influenza Vaccine (#1) 2025 2, 05/02/2022, 04/28/2019 Pneumococcal vaccine <65 Completed 05/02/2022 Hepatitis B Screening Completed 09/29/2024 , 05/29/2024, 04/24/2024, Additional history exists Procedures Procedure Name Priority Date/Time Associated Diagnosis Comments CT BODY OUTSIDE REFERENCE Routine 01/12/2025 11:26 AM CDT SERUM LIPID PANEL Routine 09/24/2014 1:4 9 PM DIESEL TECHNICIAN from Last 3 Months or Most Recently Relevant to Health Maintenance Results * CT Body Outside Reference (01/12/2025 11:26 AM CDT) Impressions [facility] - 01/12/2025 11:26 AM CDT These images are for Reference purposes only and have not been reviewed by [facility] Radiology. There will be no report generated by a [facility] Radiologist. Narrative [facility]_P[facility] - 01/12/2025 11:26 AM CDT EXAMINATION: Images For Reference Purposes Only us Lonnie Ponce MD IMG CT PROCEDURES Final Res ult [facility] * (ABNORMAL) Serum lipid panel (09/24/2014 1:49 PM DIESEL TECHNICIAN) Cholesterol 178 0 - 200 mg/dl HISTORICAL [...] last revised 2012. Serum 09/24/2014 1:49 PM DIESEL TECHNICIAN Tino Zhu [employer] MAKEUP ARTIST LAB BLOOD ORDERABLES Final Result HISTORICAL RESULTS from Last 3 Months or Most Recently Relevant to Health Maintenance Insurance [facility] MEDICARE ADVANTAGE [facility] MEDICARE ADVANTAGE Care Teams Biodiesel Production Technician Relationship Specialty Start Date End Date Marlo Chavis NP [address] [place] [address] PCP - General Nurse Practitioner 12/12/22 Sarah Pedraza MD [address] [place] [address] Consulting Physician Trauma Surgery 12/14/22 Antony Diza MD [address] [place] [address] Referring Physician Nephrology 02/28/23
--- OUTSIDE RECORDS SUMMARY | 2025-02-14 14:16 | XMS_ITS | Data Portability ---
Author Organization [facility] Address [address] [place] [address] Care Team Providers Care Calendering Supervisor Name Role Phone AILYN HENSON Primary Care Provider Trudy hoffman Assessment Encounter Date Assessment Date Assessment LastModified by Organization Details LastModified Time 02/25/2015 02/25/2015 Reassuring post op exam. Not available 03/09/2015 10:35:37 Plan of Treatment Reminders Order Date Submit Date Provider Last Modified By Organization Details Last Modified Time Details Appointments None recorded. Lab urinalysis, dipstick 2018 019 [email or web address] In-Office Order, Internal Use Only DO Not Attach Compendium DO Not Attach Compendium, Do Not Delete/merge, [id number] 9 14:37:15 bacterial vaginosis panel, vaginal 2018 019 CHANI [facility] (Centralized Electronic Ordering - All Locations), Patient Can Go To The Location Of Their Choice, [id number] 9 06:10:36 urinalysis, dipstick 2015 016 In-Office Order, Internal Use Only DO Not Attach Compendium DO Not Attach Compendium, Do Not Delete/merge, [id number] 6 13:53:29 urinalysis, dipstick 2015 016 [email or web address] In-Office Order, Internal Use Only DO Not Attach Compendium DO Not Attach Compendium, Do Not Delete/merge, [id number] 6 15:25:05 Referral None recorded. Procedures None recorded. Surgeries total vaginal hysterectom y (SURG) 2015 016 Not available 6 13:24:43 Imaging MAMMO, screening, bilateral 2018 019 [facility], [address], [address], [address], 9 13:53:14 Medication Orders None recorded. Patient TargetsNo targets recorded. Patient Instructions Encounter Date Encounter Id Patient Instructions Last Modified By Organization Details Last Modified Time 08/05/2015 [id number] abnormal uterine bleeding: care instructions Not available 08/23/2015 15:25:05 Vaginal Bleeding (Nonpregnancy): Care Instructions Not available 08/23/2015 15:25:05 03/22/2016 [id number] note to return t o work/school Not available 03/30/2016 13:53:29 Patient was advised against douching this visit and educated on the increase in infection it may cause. Not available 03/22/2016 17:52:04 05/27/2019 [id number] Stress Incontinence: Care Instructions Not available 05/27/2019 18:12:05 well visit, wome n 50 to 65: care instructions Not available 05/27/2019 18:08:40 Reason for Referral None Reported. Results Created Date Observation Date Name Description Value Unit Range Abnormal Flag Note LastModifiedBy Organization Detail LastModifiedTime 05/27/2005/27/2019 urina lysis , dipst ick Leukocytes Negati ve Not Available In-Office Order Internal Use Only DO Not Attach Compendium DO Not Attach Compendium, Do Not Delete/merge, [id number] 05/27/2019 11:51:54 05/27/20 19 05/27/2019 urina lysis , dipst ick Nitrite negati ve Not Available In-Office Order Internal Use Only DO Not Attach Compendium DO Not Attach Compendium, Do Not Delete/merge, [id number] 05/27/2019 11:51:54 05/27/20 19 05/27/2019 urina lysis , dipst ick Urobilinogen .2 Not Available In-Of fice Order Internal Use Only DO Not Attach Compendium DO Not Attach Compendium, Do Not Delete/merge, [id number] 05/27/2019 11:51:54 05/27/20 19 05/27/2019 urina lysis , dipst ick Protein 100 Not Available In-Office Order Internal Use Only DO Not Attach Compendium DO Not Attach Compendium, Do Not Delete/merge, [id number] 05/27/2019 11:51:54 05/27/20 19 05/27/2019 urina lysis , dipst ick pH 5.5 Not Available In-Office Order Internal Use Only DO Not Attach Compendium DO Not Attach Compendium, Do Not Delete/merge, [id number] 05/27/2019 11:51:54 05/27/20 19 05/27/2019 urina lysis , dipst ick Blood Hemoly zed: Trace Not Available In-Office Order Internal Use Only DO Not Attach Compendium DO Not Attach Compendium, Do Not Delete/merge, [id number] 05/27/2019 11:51:54 05/27/20 19 05/27/2019 urina lysis , dipst ick Specific Manson 1.020 Not Available In-Off ice Order Internal Use Only DO Not Attach Compendium DO Not Attach Compendium, Do Not Delete/merge, [id number] 05/27/2019 11:51:54 05/27/20 19 05/27/2019 urina lysis , dipst ick Ketone Negati ve Not Available In-Office Order Internal Use Only DO Not Attach Compendium DO Not Attach Compendium, Do Not Delete/merge, [id number] 05/27/2019 11:51:54 05/27/20 19 05/27/2019 urina lysis , dipst ick Bilirubin Negati ve Not Available In-Office Order Internal Use Only DO Not Attach Compendium DO Not Attach Compendium, Do Not Delete/merge, [id number] 05/27/2019 11:51:54 05/27/20 19 05/27/2019 urina lysis , dipst ick Glucose 500 Not Available In-Office Order Internal Use Only DO Not Attach Compendium DO Not Attach Compendium, Do Not Delete/merge, [id number] 05/27/2019 11:51:54 03/22/2003/22/2016 urina lysis , dipst ick Leukocytes Negati ve Not Available In-Office Order Internal Use Only DO Not Attach Compendium DO Not Attach Compendium, Do Not Delete/merge, [id number] 03/22/2016 16:41:15 03/22/2003/22/2016 urina lysis , dipst ick Nitrite negati ve Not Available In-Office Order Internal Use Only DO Not Attach Compendium DO Not Attach Compendium, Do Not Delete/merge, 03/22/2016 16:41:15 03/22/2003/22/2016 urina lysis , dipst ick Urobilinogen .2 Not Available In-Of fice Order Internal Use Only DO Not Attach Compendium DO Not Attach Compendium, Do Not Delete/merge, 03/22/2016 16:41:15 03/22/2003/22/2016 urina lysis , dipst ick Protein 300 Not Available In-Office Order Internal Use Only DO Not Attach Compendium DO Not Attach Compendium, Do Not Delete/merge, [id number] 03/22/2016 16:41:15 03/22/2003/22/2016 urina lysis , dipst ick pH 5.5 Not Available In-Office Order Internal Use Only DO Not Attach Compendium DO Not Attach Compendium, Do Not Delete/merge, 03/22/2016 16:41:15 03/22/2003/22/2016 urina lysis , dipst ick Blood Hemoly zed: Trace Not Available In-Office Order Internal Use Only DO Not Attach Compendium DO Not Attach Compendium, Do Not Delete/merge, 03/22/2016 16:41:15 03/22/2003/22/2016 urina lysis , dipst ick Specific Manson 1.030 Not Available In-Off ice Order Internal Use Only DO Not Attach Compendium DO Not Attach Compendium, Do Not Delete/merge, 03/22/2016 16:41:15 03/22/20 16 03/22/2016 urina lysis , dipst ick Ketone Negati ve Not Available In-Office Order Internal Use Only DO Not Attach Compendium DO Not Attach Compendium, Do Not Delete/merge, [facility] 03/22/2016 16:41:15 03/22/20 16 03/22/2016 urina lysis , dipst ick Bilirubin Negati ve Not Available In-Office Order Internal Use Only DO Not Attach Compendium DO Not Attach Compendium, Do Not Delete/merge, [facility] 03/22/2016 16:41:15 03/22/20 16 03/22/2016 urina lysis , dipst ick Glucose Negati ve Not Available In-Office Order Internal Use Only DO Not Attach Compendium DO Not Attach Compendium, Do Not Delete/merge, [facility] 03/22/2016 16:41:15 08/05/19 16 08/05/2015 urina lysis , dipst ick Leukocytes Negati ve Not Available In-Office Order Internal Use Only DO Not Attach Compendium DO Not Attach Compendium, Do Not Delete/merge, [facility] 08/05/2015 13:40:53 08/05/19 16 08/05/2015 urina lysis , dipst ick Nitrite positi ve Not Available In-Office Order Internal Use Only DO Not Attach Compendium DO Not Attach Compendium, Do Not Delete/merge, [facility] 08/05/2015 13:40:53 08/05/19 16 08/05/2015 urina lysis , dipst ick Urobilinogen 1 Not Available In-Of fice Order Internal Use Only DO Not Attach Compendium DO Not Attach Compendium, Do Not Delete/merge, [facility] 08/05/2015 13:40:53 08/05/19 16 08/05/2015 urina lysis , dipst ick Protein 300 Not Available In-Office Order Internal Use Only DO Not Attach Compendium DO Not Attach Compendium, Do Not Delete/merge, [facility] 08/05/2015 13:40:53 08/05/19 16 08/05/2015 urina lysis , dipst ick pH 6.0 Not Available In-Office Order Internal Use Only DO Not Attach Compendium DO Not Attach Compendium, Do Not Delete/merge, [facility] 08/05/2015 13:40:53 08/05/19 16 08/05/2015 urina lysis , dipst ick Blood Large Not Available In-Office Order Internal Use Only DO Not Attach Compendium DO Not Attach Compendium, Do Not Delete/merge, [facility] 08/05/2015 13:40:53 08/05/19 16 08/05/2015 urina lysis , dipst ick Specific Manson 1.025 Not Available In-Off ice Order Internal Use Only DO Not Attach Compendium DO Not Attach Compendium, Do Not Delete/merge, [facility] 08/05/2015 13:40:53 08/05/19 16 08/05/2015 urina lysis , dipst ick Ketone Negati ve Not Available In-Office Order Internal Use Only DO Not Attach Compendium DO Not Attach Compendium, Do Not Delete/merge, [facility] 08/05/2015 13:40:53 08/05/19 16 08/05/2015 urina lysis , dipst ick Bilirubin Small Not Available In-Offic e Order Internal Use Only DO Not Attach Compendium DO Not Attach Compendium, Do Not Delete/merge, [facility] 08/05/2015 13:40:53 08/05/19 16 08/05/2015 urina lysis , dipst ick Glucose Negati ve Not Available In-Office Order Internal Use Only DO Not Attach Compendium DO Not Attach Compendium, Do Not Delete/merge, [facility] 08/05/2015 13:40:53 08/05/19 16 08/05/2015 urina lysis , dipst ick Appearance Clear Not Available In-Offi ce Order Internal Use Only DO Not Attach Compendium DO Not Attach Compendium, Do Not Delete/merge, [facility] 08/05/2015 13:40:53 08/05/19 16 08/05/2015 urina lysis , dipst ick Color Yellow Not Available In-Office Order Internal Use Only DO Not Attach Compendium DO Not Attach Compendium, Do Not Delete/merge, [facility] 08/05/2015 13:40:53 05/27/20 19 05/29/2019 cultu re, vagin al/re ctal, strep tococ cus group B strep gp B RIKI Positi ve negati ve abnormal Cente rs for Disea se Contr ol and Preve ntion (CDC) and Ameri can Congr ess of Obste trici ans and Gynec ologi sts (ACOG ) guide lines for preve ntion of perin atal group B strep tococ elisha (GBS) disea se speci fy co-co llect ion of a vagin al and recta l swab speci men to maxim ize sensi tivit y of GBS detec tion. Per the CDC and ACOG, swabb ing both the lower vagin a and rectu m subst antia lly incre ases the yield of detec tion den red with sampl ing the vagin a alone . Penic illin G, ampic illin , or cefaz karyn are indic ated for intra partu m proph ylaxi s of perin atal GBS colon izati on. Refle x susce ptibi lity testi ng shoul d be perfo rmed prior to use of clind amyci n only on GBS isola you from penic illin -elsa rgic women who are consi dered a high risk for anaph ylaxi s. Treat ment with vanco mycin witho ut addit ional testi ng is warra nted if resis tance to clind amyci n is noted . Not Available [facility] ([facility]) [address] [place], [address], 05/29/2019 20:07:57 05/27/2005/29/2019 bacte rial vagin osis panel , vagin al trich vag by RIKI Negati ve negati ve Not Available [facility] ([facility]) [address] [place], [address], 05/30/2019 06:10:36 05/27/20 19 05/29/2019 bacte rial vagin osis panel , vagin al chlamydia trachomatis, RIKI Negati ve negati ve Not Available [facility] ([facility]) [address] [place], [address], 05/30/2019 06:10:36 05/27/20 19 05/29/2019 bacte rial vagin osis panel , vagin al neisseria gonorrhoeae, RIKI Negati ve negati ve Not Available [facility] ([facility]) [address] [place], [address], 05/30/2019 06:10:36 05/27/20 19 05/29/2019 bacte rial vagin osis panel , vagin al hsv 1 RIKI Negati ve negati ve Not Available [facility] ([facility]) [address] [place], [address], 05/30/2019 06:10:36 05/27/20 19 05/29/2019 bacte rial vagin osis panel , vagin al hsv 2 RIKI Negati ve negati ve Not Available [facility] ([facility]) [address] [place], [address], 05/30/2019 06:10:36 05/27/20 19 05/30/2019 bacte rial vagin osis panel , vagin al atopobium vaginae High - 2 score abnormal Not Available [facility] ([facility]) [address] [place], [address], 05/30/2019 06:10:36 05/27/20 19 05/30/2019 bacte rial vagin osis panel , vagin al bvab 2 High - 2 score abnormal Not Available [facility] ([facility]) [address] [place], [address], 05/30/2019 06:10:36 05/27/20 19 05/30/2019 bacte rial vagin osis panel , vagin al megasphaera 1 High - 2 score abnormal Calcu late total score by sherryin g the 3 indiv idual bacte rial vagin osis (BV) marke r score s toget her. Total score is inter prete d as follo ws: Total score 0-1: Indic ates the absen ce of BV. Total score 2: Indet ermin ate for BV. Addit ional clini elisha data shoul d be evalu ated to estab rand a diagn osis. Total score 3-6: Indic ates the prese nce of BV. This test was devel oped and its perfo rmanc e diego cteri stics deter mined by [employer]. It has not been clear ed or appro leigh ann by the Food and Drug Admin istra tion. The FDA has deter mined that such clear ance or appro jocy is not neces cherry. Not Available [facility] ([facility]) [address] [place], [address], 05/30/2019 06:10:36 05/27/2005/30/2019 bacte rial vagin osis panel , vagin al ledy albicans, RIKI Negati ve negati ve Not Available [facility] ([facility]) [address] [place], [address], 05/30/2019 06:10:36 05/27/20 19 05/30/2019 bacte rial vagin osis panel , vagin al ledy glabrata, RIKI Negati ve negati ve This test was devel oped and its perfo rmanc e diego cteri stics deter mined by [employer]. It has not been clear ed or appro leigh ann by the Food and Drug Admin istra tion. The FDA has deter mined that such clear ance or appro jocy is not neces cherry. Not Available [facility] ([facility]) [address] [facility], [place], [address], 05/30/2019 06:10:36 07/22/19 25 07/22/2024 WOUND CULTU RE header [facility] [address] [facility] [place] [address] Patie nt:ASHWINI GRIFFITHS 1715 Med Rec#: [id number] Order ing MD: FRED DOSIH : [birth year] Sex: F Locat ion: SEOOR Test: WOUND CULTU RE Colle ct Date: 07-22 02:16 Acces narcisa #: [id number] Not Available [facility] (Lab) [address] [facility], [place], [address], 07/25/2024 09:59:13 07/22/19 25 07/22/2024 WOUND CULTU RE wound culture SPECI MEN DESCR IPTIO N - FOOT, RIGHT SPECI AL REQUE STS - NO SPECI AL REQUE ST GRAM SMEAR - MODER ATE WHITE BLOOD CELLS SEEN GRAM SMEAR - FEW GRAM NEGAT VERONICA RODS CULTU RE - LIGHT GROWT H OF PSEUD OMONA S AERUG INOSA PROBA BLE CARBA PENEM ASE PRODU CER NOTE: CULTU RE - ORGAN ISM MAY DEVEL OP RESIS TANCE AFTER 3 TO 4 DAYS OF THERA PY WITH THIRD CULTU RE - GENER ATION CEPHA LOSPO RINS. TESTI NG OF REPEA T ISOLA YOU MAY BE WARRA NTED. CULTU RE - CARBA PENEM RESIS TANT P. AERUG INONO SA BROWN D TO AND REPEA BLAINE BACK BY MARANDA PUGA CULTU RE - DAVID Womack RN, AT 0855, 07/25. DJW REPOR T STATU S - FINAL 07/25 ORGAN ISM - LIGHT GROWT H OF PSEUD OMONA S AERUG INOSA PROBA BLE CARBA PENEM ASE PRODU CER NOTE: ORGAN ISM - ORGAN ISM MAY DEVEL OP RESIS TANCE AFTER 3 TO 4 DAYS OF THERA PY WITH THIRD ORGAN ISM - GENER ATION CEPHA LOSPO RINS. TESTI NG OF REPEA T ISOLA YOU MAY BE WARRA NTED. METHO D - TIM CEFTA ZIDIM E - >=64 RESIS TANT GENTA MICIN - <=1 SUSCE PTIBL E LEVOF LOXAC IN - 1 SUSCE PTIBL E MEROP ENEM - >=16 RESIS TANT PIPRA CIL/T AZO - >=128 RESIS TANT CEFEP ANSHU - 32 RESIS TANT Not Available [facility] ([place]) [place], [address], 07/25/2024 09:59:13 09/12/19 25 09/12/2024 POC GLUCO SE POC glucose 116 mg/dL 70-99 high Not Available [facility] ([place]) [place], [address], 09/12/2024 20:42:36 09/12/19 25 09/12/2024 TYPE AND SCREE N units ordered TYPE AND SCREE N 09/12 21:15 , UNITS ORDER ED: 2 Not Available [facility] (Lab) [address] [facility], [place], [address], 09/14/2024 15:04:31 09/12/19 25 09/12/2024 TYPE AND SCREE N ABO/Rh(D) 2024 20:04, ABO/RH (D): A POSITI VE Not Available [facility] (Lab) [address] [facility], [place], [address], 09/14/2024 15:04:31 09/12/19 25 09/12/2024 TYPE AND SCREE N antibody screen 2024 20:04, ANTIBO DY SCREEN : NEGATI VE Not Available [facility] (Lab) [address] [facility], [place], [address], 09/14/2024 15:04:31 09/12/19 25 09/12/2024 TYPE AND SCREE N xm expiration 2024 20:04, XM EXPIRA TION: 2024,2 359 Not Available [facility] (Lab) [address] [facility], [place], [address], 09/14/2024 15:04:31 09/12/19 25 09/12/2024 TYPE AND SCREE N unit number 09/12 21:16 , UNIT NUMBE R: [id number] Not Available [facility] (Lab) [address] [facility], [place], [address], 09/14/2024 15:04:31 09/12/19 25 09/12/2024 TYPE AND SCREE N blood component type 2024 21:16, BLOOD COMPON ENT TYPE: PC LEUKOP OOR Not Available [facility] (Lab) [address] [facility], [place], [address], 09/14/2024 15:04:31 09/12/19 25 09/12/2024 TYPE AND SCREE N unit division 2024 21:16, UNIT DIVISI ON: 00 Not Available [facility] (Lab) [address] [facility], [place], [address], 09/14/2024 15:04:31 09/12/19 25 09/12/2024 TYPE AND SCREE N transfusion status 2024 21:16, TRANSF USION STATUS : OK TO TRANSF USE Not Available [facility] (Lab) [address] [facility], [place], [address], 09/14/2024 15:04:31 09/12/19 25 09/12/2024 TYPE AND SCREE N crossmatch result 2024 21:16, [facility] RESULT : COMPAT IBLE-E XM Not Available [facility] (Lab) [address] [facility], [place], [address], 09/14/2024 15:04:31 09/12/19 25 09/12/2024 TYPE AND SCREE N unit number 09/12 21:16 , UNIT NUMBE R: [id number] Not Available [facility] (Lab) [address] [facility], [place], [address], 09/14/2024 15:04:31 09/12/19 25 09/12/2024 TYPE AND SCREE N blood component type 2024 21:16, BLOOD COMPON ENT TYPE: PC LEUKOP OOR Not Available [facility] (Lab) [address] [facility], [place], [address], 09/14/2024 15:04:31 09/12/19 25 09/12/2024 TYPE AND SCREE N unit division 2024 21:16, UNIT DIVISI ON: 00 Not Available [facility] (Lab) [address] [facility], [place], [address], 09/14/2024 15:04:31 09/12/19 25 09/12/2024 TYPE AND SCREE N transfusion status 2024 21:16, TRANSF USION STATUS : OK TO TRANSF USE Not Available [facility] (Lab) [address] [facility], [place], [address], 09/14/2024 15:04:31 09/12/19 25 09/12/2024 TYPE AND SCREE N crossmatch result 2024 21:16, CROSSM ATCH RESULT : COMPAT IBLE-E XM Not Available [facility] (Lab) [address] [facility], [place], [address], 09/14/2024 15:04:31 09/12/19 25 09/14/2024 TYPE AND SCREE N status of unit 2024 14:04, STATUS OF UNIT: TRANSF USED,F INAL Not Available [facility] (Lab) [address] [facility], [place], [address], 09/14/2024 15:04:31 09/12/19 25 09/14/2024 TYPE AND SCREE N status of unit 2024 14:04, STATUS OF UNIT: TRANSF USED,F INAL Not Available [facility] (Lab) [address] [facility], [place], [address], 09/14/2024 15:04:31 09/14/19 25 09/14/2024 POC GLUCO SE POC glucose 107 mg/dL 70-99 high Not Available [facility] (Lab) [address] [facility], [place], [address], 09/14/2024 15:00:06 01/21/20 25 01/20/2025 SJS SURGI ELISHA PATHO LOGY sjs surgical pathology [facility] Dep[facility] tment of Labor atory Medic ine [address] [facility] [address] [place] [address] Telep pepe: , exten narcisa Patho logy Repor t Surgi elisha Patho logy Repor t Name: ASHWINI WONG Speci men #: [id number] Age: [id number] (Age: 59) Locat ion: SEO3M DSG Sex: F Proce dure Date: 025 Hospi kayy #: [id number] Date Recei leigh ann: 025 Date Repor blaine: 025 Provi zia: AMINATA Hendrickson MD Sour e: Toe, left great Clini elisha Histo ry: Necro tic left foot. FINAL DIAGN OSIS: Left great toe, amput ation : Exten sive soft tissu e ulcer ation and necro sis with under lying acute osteo myeli tis. Acute osteo myeli tis invol ves the surgi elisha bone martell n. Gross Descr iptio n: Recei leigh ann in forma rafa, label ed with a patie nt label and as left great toe is a 5.0 x 2.5 x 2.0 cm toe parti ally cover ed with firm dusky almos t black -stone skin. There is a nail at the dista l end that is thick ened and yello w. The toe is secti oned to revea l the soft tissu e is red-b rown and the bone is red-b rown. The soft tissu e near the surgi elisha martell n is parti ally lique fied and dusky stone- green . The surgi elisha martell n is shave d. Repre senta tive tissu e is submi tted as follo ws: 1 secti on from dista l end of toe and secti on from soft tissu e near surgi elisha martell n 2 bone from surgi elisha martell n. Casse ttes 1 and 2 are submi tted follo wing decal cific ation . Gross exami natio n (when appli cable ) was perfo rmed at [facility], [address] [facility], [place] [address] . This case was inter prete d and taylor d out at [facility] [address] [place] [address] . Laura ctron icall y Taylor d Out LINDA Nguyen MD Not Available [facility] (Lab) One [facility], [place], [address], 01/25/2025 12:35:45 02/08/20 15 02/07/2015 imagi ng/di agnos tic resul t No observ ation record ed. [facility] (Imaging) [address] [place], [address], 03/09/2015 10:35:37 09/07/19 16 09/07/2015 XR, chest , 2 view No observ ation record ed. [email or web address] Not Available 2015 13:54:27 06/24/20 19 06/24/2019 MAMMO , scree areli, bilat eral No observ ation record ed. [facility] [address] [facility], [place], [address], 06/30/2019 22:48:48 Result Notes None recorded. Problems Name Problem SNOMED Code Status Onset Date Resolution Date Notes Provider Name and Address Organization Details Recorded Time Irregula r periods 28111229 Completed 05/27/2019 Rubi Marcial [facility] [place] - [facility] 9 11:38:21 Irregula r intermen strual bleeding 89465854 Completed 05/27/2019 Rubi cuellar, [place] - [facility] 9 11:38:16 Bacteria l vaginosi s 115619972 Completed 05/27/2019 Rubi cuellar, [place] - [facility] 9 11:38:14 Dysfunct ional uterine bleeding Completed 05/27/2019 Rubi cuellar, [facility] 9 11:38:27 Uterine leiomyom a 15814896 Active hysterect teodora 6 Nicci Fuentes MA alisa, [place] - [facility] 6 16:16:39 Follow-u p visit Active Roland Mares alisa, [facility] 6 17:52:03 Problem Notes None recorded. Procedures Surgical History Date Name Laterality Status Provider Name and Address Organization Details Recorded Time 09/13/19 16 Total hysterectomy completed MILY GROSSMAN Attn: Accounting,[address] [place], [address], [facility] 05/27/2019 12:17:53 03/18/20 15 Endometrial cryoablation completed Elena Zapata MA [facility] 08/05/2015 11:59:49 01/20/20 15 Endometrial Biopsy completed Roland Mares [facility] 01/19/2015 15:28:32 01/20/20 15 Endometrial Biopsy completed Elena Zapata MA [facility] 08/05/2015 12:00:03 01/06/20 15 Date of Last Pap Smear completed Elena Zapata MA [facility] 01/19/2015 14:36:34 12/23/19 15 Most Recent Mammogram completed Elena Zapata MA [facility] 01/05/2015 14:51:39 10/01/19 13 Lap gastric bypass/victor hugo-en-y completed Elena Zapata MA [facility] 09/29/2014 10:20:07 03/02/19 93 Caesarean Section completed Elena Zapata MA [facility] 09/29/2014 10:19:22 05/13/19 91 Caesarean Section completed Elena Zapata [place] - [facility] 09/29/2014 10:18:51 Imaging Results None recorded. Procedure Notes None recorded. Medical Equipment None Reported. Allergies No known drug allergies Medications Name Sig Start Date Stop Date Status Note LastModified by Organization Details LastModified Time sodium chloride 5 % eye drops active Not Available Not Available Not Available atorvastat in 40 mg tablet 2018 active Not Available Not Available Not Avai lable Iron (ferrous sulfate) 325 mg (65 mg iron) tablet Take 1 tablet every day by oral route. active Not Available Not Available No t Available azithromyc in 250 mg tablet 05/27 completed Not Available Not Available Not Available hydrocodon e 5 mg-acetami nophen 325 mg tablet active Not Available Not Available No t Available metronidaz ole 500 mg tablet Take 1 tablet twice a day by oral route as directed for 7 days. 2018 active Not Available Not Available Not Avai lable acyclovir 400 mg tablet active Not Available Not Available Not Available ciprofloxa jimmy 500 mg tablet 05/27 completed Not Available Not Available Not Available tramadol 50 mg tablet active Not Available Not Available Not Available triamcinol one acetonide 0.1 % topical cream active Not Available Not Available Not Available meloxicam 7.5 mg tablet 05/27 completed Not Available Not Available Not Available oxycodone- acetaminop hen 5 mg-325 mg tablet 05/27 completed Not Available Not Available Not Available sodium chloride 5 % eye ointment active Not Available Not Available Not Available amoxicilli n 875 mg tablet active Not Available Not Available Not Available erythromyc in 5 mg/gram (0.5 %) eye ointment active Not Available Not Available Not Available neomycin-p olymyxin-d exameth 3.5 mg/mL-10,0 00 unit/mL-0. 1% eye drops active Not Available Not Available Not Available lisinopril 10 mg-hydroch lorothiazi de 12.5 mg tablet active Not Available Not Available Not Available fluticason e propionate 50 mcg/actuat ion nasal spray,susp ension active Not Available Not Available Not Available naproxen 500 mg tablet 05/27 completed Not Available Not Available Not Available metoprolol tartrate 25 mg tablet active Not Available Not Available Not Available gabapentin active unsure on dose Not Available Not Available Not Available multivitam in active Not Available Not Available Not Available Calcium 500 + D active Not Available Not Available Not Available B12 one tablet once daily active Not Available Not Available No t Available Vitals Date Recorded Body mass index (BMI) Body weight Body height Systolic And Diastolic Provider Name and Address Organization Details Last Updated DateTime 08/05/2015 52.8 kg/m2 923082.78 129 g 165.1 cm 144/86 mm[Hg] Elena Zapata MA [facility] 08/05/2015 12:01:52 Date Recorded Body mass index (BMI) Body height Body weight Systolic And Diastolic Provider Name and Address Organization Details Last Updated DateTime 09/29/2015 52.3 kg/m2 165.1 cm 257035.00 418 g 150/94 mm[Hg] Elena Zapata MA [facility] 09/29/2015 14:41:01 Date Recorded Body height Body mass index (BMI) Body weight Systolic And Diastolic Provider Name and Address Organization Details Last Updated DateTime 02/25/2015 165.1 cm 53.3 kg/m2 947583.55 84 g 112/84 mm[Hg] Elena Zapata MA [facility] 02/25/2015 15:36:40 Date Recorded Body height Body mass index (BMI) Body weight Systolic And Diastolic Provider Name and Address Organization Details Last Updated DateTime 03/22/2016 165.1 cm 53.1 kg/m2 318616.96 603 g 144/88 mm[Hg] Nicci Fuentes MA [facility] 03/22/2016 16:52:28 Date Recorded Heart rate Body temperature Oxygen saturation Oxygen saturation in Arterial blood by Pulse oximetry Provider Name and Address Organization Details Last Updated DateTime 05/27/2019 94 /min 98 [degF] 97 % 97 % Yaz Galindo MA [facility] 9 11:56:33 Date Recorded Body weight Body mass index (BMI) Body height Systolic And Diastolic Provider Name and Address Organization Details Last Updated DateTime 05/27/2019 706485.05 g 46.9 kg/m2 165.1 cm 156/84 mm[Hg] Rubi Marcial [facility] 05/27/2019 11:35:27 Social History Question Answer Notes LastModified by Organizat ion Details LastModified Time Tobacco Smoking Status Never Smoker Elena Baronaw, [place] [facility], [place] - [facility] 09/29/2014 10:21:29 Do You Have An Advance Directive? No Information not available 01/05/2015 Is Blood Transfusion Acceptable In An Emergency? Yes Information not available 01/05/2015 What Is Your Level Of Caffeine Consumption? Heavy Information not available 01/05/2015 How Much Tobacco Do You Chew? None Information not available 01/05/2015 What Type Of Diet Are You Following? REGULAR Information not available 01/05/2015 Which Illicit Or Recreational Drugs Have You Used? Denies Information not available 05/27/2019 Education 12 Information no t available 01/05/2015 Live Alone Or With Others? With Others Boyfriend , Daughter, Son In Law Information not available 05/27/2019 How Many Children Do You Have? 2 Information not available 01/05/2015 Performs Monthly Self-breast Exam? Yes Information no t available 01/05/2015 Do You Use Protection During Sex? Always Information not available 01/05/2015 What Is Your Relationship Status? Single Information not available 01/05/2015 Seat Belts Used Routinely Yes Information not available 01/05/2015 Are You Sexually Active? Yes Information not available 01/05/2015 How Much Tobacco Do You Smoke? No Information not available 03/22/2016 General Stress Level Medium Information not available 01/05/2015 Do You Use Sunscreen Routinely? No Information not available 01/05/2015 How Many Years Have You Smoked Tobacco? 0 [email or web address] Information not available 03/22/2016 Sex: Unknown Functional Status Question Answer Note LastModified by Organizat ion Details LastModified Time What is your level of alcohol consumption? None Information not available 01/05/2015 Are you currently employed? 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 Never used electronic cigarettes [email or web address] Information not available 05/27/2019 What is your exercise level? Moderate [email or web address] Information not available 05/27/2019 Mental Status None recorded. Family History Relationship Description Onset Age of this Age Resolved Age Notes LastModified by Organization Details LastModified Time Mother Suspected cervical cancer Not available 2015 15:13:44 Maternal Grandfather Malignant neoplasm of lung 60 Not available 2015 15:13:44 Father Malignant tumor of pharynx 45 [email or web address] Not available 2018 11:40:45 Medical History Condition Response Coronary Artery Disease N Blood Diseases N Kidney Cyst N Hyperthyroidism N MRSA N Blood Transfusion N Blood disorders N Emphysema N Depression N COPD N Blood Clots N Pneumonia N Peripheral Arterial Disease N Premature N Edema N TIA N Headaches/Migraines N Anxiety Disorder N Obesity N Infertility N Polyps N Acid Reflux (GERD) N Hematuria N Stroke N Neck Injury N Polio N Hospital Admission other than N Neurologic Disorder N Other Sleep Disorders N Rheumatoid Arthritis N Fibromyalgia N Abdominal Aortic Aneurysm Repair N Kidney Disease N Heart Conditions N Heart Disease/Heart Problems N Hospitalizations N Brain Tumors N Acne N Eating Disorder N Skin Problems N Constipation N Meningitis N Tuberculosis N Cerebral Palsy N Myocardial Infarction N Asthma N Substance Abuse N Peripheral Vascular Disease N Vertigo N Sleep Disorder N Cirrhosis N Pulmonary Embolism N Chicken Pox N Flomax Use Past or Present N Hematologic Disease N Anxiety/Depression N Thyroid Disease N Colon Cancer N Glaucoma N Lung Disease N Developmental or Behavioral Disorders N Bipolar N Pacemaker N Diverticulitis/Diverticulosis N Anesthesia Complications N Orthopedic Problems N Orthotics N Head Injury/Concussion N Congenital Anomalies N [place] Bite N Chronic Kidney Disease N Endometriosis N Liver Disease N Dialysis N Schizophrenia N Speech Delay N Chronic Obstructive Pulmonary Disease N Parkinson's Disease N Thyroid Problems N Developmental Delay N GI Problems N Anemia N Immune System Disorder N Multiple Sclerosis N Colon Polyps N Heart Attack ([place]) N Diabetes N Cardiomyopathy N Blood Transfusions N Heart Problems/Murmur N Eye Trauma N Congestive Heart Failure (CHF) N Valvular Heart Disease N Hyperlipidemia N Double Vision N Abuse/Domestic Violence N Hepatitis B N Lupus N Epilepsy/Seizures N Reflux/GERD N Aneurysm N Bronchitis N Heart Disease N Hypertension Y Pre-Eclampsia N Heart Failure N Other N Gout N High Blood Pressure N Atrial Fibrillation N Kidney Stones N Head Trauma/Injury N Congenital Heart Disease N Spine Problems N Gastrointestinal Disease N Lung Mass N Sinusitis N Obstructive Sleep Apnea N Muscle, Joint, or Bone Problems N Autoimmune disease N Vision or Eye Problems N Arthritis N Blood Clot N Cancer N Seasonal allergies N Leg or Foot Ulcers N Raynaud's Disease N Aortic Aneurysm N Arrhythmia N Headaches N Heart Problems N Ambl[place]pia N Ear or Hearing Problems N Hyperparathyroidism N Migraines N Artificial Joints N Kidney or Bladder Problems N NSAID Use N Encephalitis N PTSD N Ulcers N Prostate Hypertrophy N Bleeding Disorder N AIDS/HIV N Urinary Tract Infection N Back Problems N Allergies N Atrial Flutter N GERD/Reflux N Hepatitis N Autism Spectrum Disorder (ASD) N Breast Cancer N Hernia N Hypothyroidism N Breast Problem N Genitourinary Disease N Deep Vein Thrombosis N Varicose Veins N Cystic Fibrosis N Hearing Loss N Developmental Problems N Carotid Disease N Vitamin D Deficiency N ADHD N Bladder or Kidney Problems N High Cholesterol Y [place] N Valvular Abnormalities N Psychiatric/Mental Health Condition N Organ Transplant N Foot Deformity N Allergies/Hayfever N Dyslipidemia N Hyponatremia N Diabetic Eye Disease N Osteoporosis/Osteopenia N Back Pain N Proteinuria N Mental Illness N Neurological Problems N Ovarian Cancer N Bedwetting N Seizures/Epilepsy N Kidney Failure N Ocular trauma N Diverticulitis N Dementia N Sleep Apnea N Mental Problems N Warfarin Management N Osteoporosis N Gynecological History Statement/Question Response Abnormal Pap N Flow Heavy Date of LMP STIs/STDs N HPV Vaccine N Duration of Flow (days) 4 Most Recent Mammogram 12/22/2014 Age at Menarche 13 Current Control Method Hysterectom y Age at First Child 24 Sexually Active? Y Menses Monthly Y Date of Last Pap Smear 01/05/2015 Sexual Problems? N LMP Approximate Desired Control Method Sterilizati on Obstetrics History GPAL:G 2 P 2 0 0 2 Type Value Multiple Births 0 Full Term 2 Induced 0 Spontaneous 0 Premature 0 Living 2 Ectopics 0 Total 2 Past Encounters Encounter ID Performer Location Encounter Start Date Encounter Closed Date Diagnosis/Indication Diagnosis SNOMED-CT Code Diagnosis ICD10 Code Diagnosis Note [id number] MD Lupe Brown ([employer]) [address] [place] [address] [id number] 09/29/2014 09:20:53 09/29/2014 11:21:20 Irregular periods [id number] MD Lupe Brown ([employer]) [address] [place] [address] [id number] 01/05/2015 14:13:38 01/05/2015 16:24:24 Gynecologic examination [id number] MD Lupe Brown ([employer]) [address] [place] [address] [id number] 01/19/2015 13:26:57 01/19/2015 15:16:00 Irregular intermenstrual bleeding 51114146 Bacterial vaginosis 221259313 [id number] Roland Mares MD [facility] ([employer]) [address] [place] [address] [id number] 02/25/2015 14:47:05 02/25/2015 16:52:36 Postoperative visit [id number] Doing well 10 days s/p Novasure endometria l ablation. Follow up at annual exam. [id number] Roland Mares MD [facility] ([employer]) [address] [place] [address] [id number] 08/05/2015 11:01:52 08/05/2015 15:36:49 Dysfunctional uterine bleeding 74246583 N93.8 49 year old female 4 months s/p Novasure endometria l ablation, with persistent uterine bleeding with passage of large clots. Very concerned given ablation was expected to help more with control of this kind of bleeding. Discussed options; I beleive these are: (1) Attempt repeat ablation. (2) Conservati ve management awaiting menopause. (4) attempt hormonal medical treatment. (5) surgical definitive treatment (hysterect teodora). Patient strongly chose hysterecto my. Believe Total Vaginal hysterecto my with BSO is best choice. Will arrange with surgical scheduling . [id number] [facility] [address] [place] [address] [id number] 09/29/2015 13:24:11 09/29/2015 15:48:06 Postoperative visit 955402099 Z09 Doing well 10 days s/p Novasure endometria l ablation. Follow up at annual exam. [id number] [facility] [address] [place] [address] [id number] 03/22/2016 15:20:32 03/23/2016 10:44:58 Follow-up visit 510796056 Z09 [id number] MILY GROSSMAN ([employer]ER) [address] [place] [address] 05/27/2019 11:13:34 05/28/2019 11:16:28 Screening mammography 90834828 Z12.31 Gynecologi c examination 48594093 Z01.419 Z11.51 Z12.4 Venereal d isease screening 766816207 Z11.3 Body mass index 40+ - severely obese 713693368 Z68.42 Diet high in fruits and vegetables . Limit fat, sugar, and processed foods. Exercise at least 30 minutes 5x/week. Glycosuria 03696298 R81 Encouraged pt to follow up with PCP. Proteinuria 98705739 R80 .9 Encouraged pt to follow up with PCP. Female str ess incontinence 55123966 N39.3 Health Concerns Section Related Observation LastModified by Organization Detai ls LastModified Time None Recorded Concern Status LastModified by Organization Details LastModified Time None Recorded Advance Directives Directive N: Payers Insurance Date Sequence Insurance Name Policy Number Policy Borrego Covered Member ID Borrego Member ID Guarantor Name 10/18/2024 1 [place] [id number] Ashwini Talbot [id number] Ashwini Talbot 10/18/2024 1 [facility] (MEDICARE REPLACEMENT/AD VANTAGE - PPO) [id number] Ashwini Talbot [id number] Ashwini Talbot 10/18/2024 2 [place] WHEN MEDICARE OR MEDICARE REPLACEMENT PRIMARY) Ashwini Talbot [id number] Ashwini Talbot 10/18/2024 1 [facility] - DOS PRIOR TO 2021 (MEDICAID REPLACEMENT - HMO) Ashwini Talbot [id number] Ashwini Talbot Notes Date Note Type Note Provider Name and Address Organization Details Recorded Time 6 text/html Annual GYNReported by Patient problems-FemaleReported by PatientGU ProblemsFor location, patient reportsno radiation. For onset/timing, patient reportsbetter. For context, patient reportsnot sexually active,no sexual dysfunction, andno prior history of stds. For associated symptoms, patient reportsno flank pain,no jaundice,no blood in the urine,no pain during urination,no vaginal discharge, andno urgency. Roland cuellar, [place] - [facility] 10/11/2015 13:26:16 6 text/html ROS as noted in the HPI TR is a 50yo female s/p hysterectomy who presents to the office for a work release. Patient has been doing very well since her hysterectomy and she needs a release to go back to work without restrictions. Patient also wondering if she can douche again since the hysterectomy. Denies pain, abnormal vaginal discharge, and urinary symptoms. Roland cuellar, [place] - [facility] 03/22/2016 17:52:16 9 text/html Annual GYNReported by PatientGenitourinary symptomsFor urinary symptoms, patient reportsstress incontinencebut reportsno hematuria. For vulva, patient reportsno genital lesion. For vagina, patient reportsnormal vaginal discharge. For menstrual cycle, (fermin).Breast symptomsFor breast, patient reportsno breast pain,no breast lump, andno nipple discharge.ContraceptionFo r current contraception, (fermin).Endocrine symptomsFor menopausal symptoms, patient reportshot flashesbut reportsnormal vaginal lubrication. For sexual complaints, patient reportsno sexual complaints,no pain during intercourse, andnormal libido.Psychological symptomsFor psychological symptoms, patient reportsno depression,no anxiety, andno pmdd.Preventative measuresFor preventive measures, patient reportsencourage self breast examination,encourage regular exercise,encourage no tobacco use,encourage regular mammograms starting age 40, andneeds to schedule mammogram. 53yo F presents for annual WWE. She has no specific concerns today. MILY GROSSMAN Attn: Accounting,[address] [place], [address], [facility] 05/27/2019 18:13:27 OBGyn Episode Ob Episode Information Episode Created Date Number of Fetuses Patient Bloodtype Patient rh Status Prepregnancy Weight lbs Domestic Partner Domestic Partner Phone Father Name Enamel Pulverizer Status 05/27/20 19 1 CLOSED Fetus Data First Name Last Name Admitted to NICU Weight (g) Sex Living Outcome Pediatric Complications Fetus ID Race Codes Race Delivery Type 4223.84 [id number] F Full Term [id number] Only Valdemar Calculation Initial Valdemar Date Initial Exam Date Initial Exam Provider Initial Ultrasound Date Last Menstrual Period Date Ultra Sound Weeks Gestation 0 Eighteen To Twenty Week Valdemar Update Ultra Sound Date Fundal Height At Umbil Quickening Date Ultra Sound Latest Weeks Gestation Final Valdemar Confirmed By Final Valdemar Confirmed Date Final Valdemar Date Ultra Sound Latest Days Gestation 0 0 Menstrual History Last Menstrual Date Menses Monthly On Bcp Conception Prior Menses Frequency Hcg Plus Date Menarche Onset Age Delivery Information Delivery Date Delivery Type Labor Anesthesia Weeks Gestation Incision Type Labor Labor Length Hrs Delivered By Post Complications [facility] Information Feeding Method Contraceptive Method Maternal HG B and HCT Levels Ob Episode Information Episode Created Date Number of Fetuses Patient Bloodtype Patient rh Status Prepregnancy Weight lbs Domestic Partner Domestic Partner Phone Father Name Enamel Pulverizer Status 05/27/20 19 1 CLOSED Fetus Data First Name Last Name Admitted to NICU Weight (g) Sex Living Outcome Pediatric Complications Fetus ID Race Codes Race Delivery Type 3798.83 3 F Full Term [id number] Valdemar Calculation Initial Valdemar Date Initial Exam Date Initial Exam Provider Initial Ultrasound Date Last Menstrual Period Date Ultra Sound Weeks Gestation 0 Eighteen To Twenty Week Valdemar Update Ultra Sound Date Fundal Height At Umbil Quickening Date Ultra Sound Latest Weeks Gestation Final Valdemar Confirmed By Final Valdemar Confirmed Date Final Valdemar Date Ultra Sound Latest Days Gestation 0 0 Menstrual History Last Menstrual Date Menses Monthly On Bcp Conception Prior Menses Frequency Hcg Plus Date Menarche Onset Age Delivery Information Delivery Date Delivery Type Labor Anesthesia Weeks Gestation Incision Type Labor Labor Length Hrs Delivered By Post Complications Tubal Sterilization Discharge Date Comments 1 Regional- inal false Discharge Information Feeding Method Contraceptive Method Maternal HG B and HCT Levels
--- OUTSIDE RECORDS SUMMARY | 2025-02-14 14:16 | XMS_ITS | Clinical Summary ---
Author Organization [facility] System Address [address] [place] [address] Care Team Providers Care Psychology Technician Name Role Phone Antony Diaz MD Unavailable [phone] Marlo Chavis NP Primary Care Provider [phone] Allergies Active Allergy Reactions Criticality Noted Date Comments Latex Rash Low 04/23/2024 Gloves specifically Medications insulin lispro, 1 Unit Dial, (HUMALOG) 100 UNIT/ML injection (PEN)Indication s:Diabetes Mellitus Inject 10 Units into the skin 3 (three) times daily before meals. Indications: Diabetes SSI- 150-200- 1 unit, 201-250- 2 units, 251-300- 3 units, 301-350- 4 units, 351-400- 5 units, greater than 401- 6 units 05/08/20 24 Active Insulin Degludec (TRESIBA) 100 UNIT/ML SolutionIndicat ions:Diabetes Mellitus Inject 24 Units into the skin every morning. Indications: Diabetes 05/08/20 24 Active cyanocobalamin (VIT B-12) 250 MCG TabIndications: Supplement Take 1 tablet (250 mcg total) by mouth daily. Indications: Supplement Active fish oil (OMEGA-3 FATTY ACID) 1000 MG Cap capsuleIndicati ons:Supplement Take 1 capsule (1,000 mg total) by mouth daily. Indications: Supplement Active Multiple Vitamins-Minera ls (WOMENS MULTIVITAMIN + COLLAGEN OR)Indications: Supplement Take 1 tablet by mouth daily. Indications: Supplement 05/08/20 24 Active B fhyauky-B-tzcdd acid (RENAL CAPS) 1 MG capsuleIndicati ons:Renal Supplement Take 1 capsule by mouth daily. Indications: Renal Supplement Active allopurinol (ZYLOPRIM) 300 MG tabletIndicatio ns:Gout Take 1 tablet (300 mg total) by mouth daily. Indications: Gout Active sevelamer carbonate (RENVELA) 800 MG tabletIndicatio ns:Chronic Kidney Disease Stage 4 Take 4 tablets (3,200 mg total) by mouth 3 (three) times daily with meals. Indications: Chronic Kidney Disease Stage 4 Active cyclobenzaprine (FLEXERIL) 10 MG tabletIndicatio ns:Muscle Spasm Take 1 tablet (10 mg total) by mouth nightly as needed. Indications: Muscle Spasm FOR MUSCLE SPASMS 03/25/20 24 Active vitamin D2, ergocalciferol, (DRISDOL) 1.25 mg capsuleIndicati ons:Supplement Take 1 capsule (1.25 mg total) by mouth once a week. Indications: Supplement Saturday03/16/20 24 Active ferrous sulfate, 65 mg elemental, 325 (65 FE) MG tabletIndicatio ns:Anemia Take 1 tablet (325 mg total) by mouth once a week. Indications: Anemia Mondays Active GVOKE HYPOPEN 2-PACK 1 MG/0.2ML Solution Auto-injectorIn dications:Hypog lycemia Inject 1 mg into the skin as needed (low blood sugar). Indications: Disorder with Low Blood Sugar 08/26/19 24 Active MOUNJARO 7.5 MG/0.5ML injectionIndica tions:Diabetes Mellitus Inject 7.5 mg into the skin once a week. Indications: Diabetes Takes on Saturday04/17/20 24 Active mirtazapine (REMERON) 7.5 MG Tab tabletIndicatio ns:Sleep Disturbance Take 1 tablet (7.5 mg total) by mouth nightly at bedtime. Indications: Disturbed Sleep at bedtime 05/08/20 24 Active gentamicin (GARAMYCIN) 0.1 % ointmentIndicat ions:PD insetion site care Apply topically daily. Indications: PD insetion site care Apply to dialysis access Active midodrine (PROAMATINE) 2.5 MG tabletIndicatio ns:low blood pressure Take 1 tablet by mouth 3 (three) times daily. Indications: low blood pressure 09/18/19 25 Active doxepin (SINEQUAN) 25 MG capsuleIndicati ons:itching Take 1 capsule by mouth nightly as needed (itching). Indications: itching 11/23/19 25 Active gabapentin (NEURONTIN) 300 MG capsuleIndicati ons:neuropathy pain Take 1 capsule by mouth nightly at bedtime. Indications: neuropathy pain 11/23/19 25 Active CALCIUM ORIndications:v itamin deficiency Take 1 each by mouth daily. Indications: vitamin deficiency Active atorvastatin (LIPITOR) 40 MG tabletIndicatio ns:elevated cholesterol Take 1 tablet (40 mg total) by mouth nightly at bedtime. 90 tablet 01/24/20 25 Active Alcohol Swabs 70 % Pads 02/06/20 25 Active fluticasone propionate (FLONASE) 50 MCG/ACT nasal spray 02/11/20 25 Active ONETOUCH VERIO test strip 02/06/20 25 Active HUMULIN N KWIKPEN 100 UNIT/ML Suspension Pen-injector injection (PEN) 02/11/20 25 Active Tenapanor HCl, CKD, (XPHOZAH) 30 MG TabIndications: Chronic Kidney Disease Stage 4 Take 30 mg by mouth 2 (two) times daily. Indications: Chronic Kidney Disease Stage 4 2024 Discontinued(E rror) carvedilol (COREG) 3.125 MG tabletIndicatio ns:Tachycardia Take 1 tablet (3.125 mg total) by mouth 2 (two) times daily. Indications: Rapid Heartbeat 60 tablet 07/30/19 25 2024 Discontinued(E rror) LANTUS SOLOSTAR 100 UNIT/ML injection (PEN) Inject into the skin daily. 09/22/19 25 2024 Discontinued(E rror) amoxicillin-cla vulanate (AUGMENTIN) 500-125 MG tablet take 1 tablet by mouth every 12 hours for 14 days 12/08/19 25 2024 Discontinued(E rror) amoxicillin-cla vulanate (AUGMENTIN) 500-125 MG tablet Take 1 tablet (500 mg of amoxicillin total) by mouth every 12 (twelve) hours for 2 days. 3 tablet 01/24/20 25 2024 HYDROcodone-andres taminophen (NORCO) 5-325 MG tabletIndicatio ns:Acute Pain < 7 Day Supply Take 1 tablet by mouth every 6 (six) hours as needed. Indications: Acute Pain < 7 Day Supply 12 tablet 01/24/20 25 2024 Discontinued sulfamethoxazol e-trimethoprim (BACTRIM DS) 800-160 MG tablet Take 1 tablet by mouth 2 (two) times daily for 2 days. 3 tablet 01/24/20 25 2024 HYDROcodone-andres taminophen (NORCO) 5-325 MG tabletIndicatio ns:Acute Pain < 7 Day Supply Take 1 tablet by mouth every 6 (six) hours as needed. 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) 09/18/2024 Essential hypertension 09/18/2024 Retention of urine 09/18/2024 ESRD (end stage renal diseas e) on dialysis ([facility]) 06/09/2024 Altered mental status 06/01/2024 Gangrene ([facility]) 05/13/2024 PVD (peripheral vascular disease) 04/24/2024 Bacterial vaginosis 04/23/2024 Irregular intermenstrual bleeding 04/23/2024 Irregular periods 04/23/2024 Uterine leiomyoma 04/23/2024 Overview (04/23/2024): hysterectomy 09/13/2015 Diabetic ulcer of toe associ ated with type 2 diabetes mellitus, limited to breakdown of skin ([facility] HHS/[facility]) 04/23/2024 PD catheter dysfunction 12/08/2022 Anemia of chronic renal fail ure, stage 4 (severe) ([facility]) 04/12/2021 Anemia in chronic kidney disease 01/23/2021 Chronic kidney disease, stage IV (severe) ([facility]) 01/23/2021 Corneal scar and opacity 05/05/2015 Morbid obesity 06/29/2010 Resolved Problems Problem Noted Date Diagnosed Date Resolved Date Amputee ([facility]) 09/10/2024 09/17/2024 Osteomyelitis ([facility]) 07/21/2024 09/17/2024 Encounters Date Type Department Care Team Description 02/12/2025 Telephone [facility], [address] [address] Bruno Fernandes MD Schedule Surgery 02/12/2025 Prep for Procedure [facility], [address] [address] Bruno Fernandes MD 02/12/2025 Prep for Procedure [facility], [address] [address] Bruno Fernandes MD 02/11/2025 9:15 AM CDT Office Visit [facility], [address] [address] Bruno Fernandes MD Follow Up 02/11/2025 Travel 02/10/2025 9:00 AM CDT Home Care Visit [facility] Home Care [address] [place], [place] [id number] Tri Aguilar LPN SN HOME VISIT 02/05/2025 Orders Only [facility], [address] [address] Bruno Fernandes MD 02/03/2025 9:30 AM CDT Home Care Visit [facility] Care [address] [place], [place] [id number] Tram Montiel LPN SN HOME VISIT 02/03/2025 MyChart Message Enc [facility], [place] [address] [place] [address] Bruno Fernandes MD Toe 02/02/2025 1:30 PM CDT Home Care Visit [facility] Home Care [address] [place] [address] Sandra Gerardo, PT PT INITIAL EVALUATION 02/01/2025 Home Care Visit [facility] Home Care [address] [place] [address] Bryan Oropeza, PT CASE COMMUNICATION 01/29/2025 2:30 PM CDT Home Care Visit [facility] Care [address] [place] [address] Jorge Covington, PT CASE COMMUNICATION 01/27/2025 1:15 PM CDT Home Care Visit [facility] Care [address] [address] Asuncion Padron, STALIN SN OASIS START OF CARE 01/27/2025 Plan of Care Documentation [facility] Home Care [address] [place], [place] [id number] 01/26/2025 Hospital Follow-up Call [facility] [place] [address] Kim Yin LPN Follow Up Call (KATE 01/18-01/23/25) 01/25/2025 MyChart Message Enc [facility], [address] [address] Bruno Fernandes MD Follow up 01/20/2025 8:26 PM CDT Anesthesia Event [place] [address] Ken Pendleton MD Reynolds, Megan R, CRNA 01/20/2025 8:00 PM CDT - 01/20/2025 9:06 PM CDT Surgery [facility] [place] [address] Bruno Fernandes MD AMPUTATION LEFT GREAT TOE 01/19/2025 Prep for Procedure [facility] [address] Bruno Fernandes MD 01/18/2025 10:45 AM CDT - 01/23/2025 1:47 PM CDT [facility] 3rd [place] [address] Maranda Veras DO Beggs, Benjamin C, MD Romick, Jordan K, MD Wound Discharge Disposition: Home with Home Health Care 01/18/2025 Travel 01/14/2025 Patient Self-Triage [facility] FACILITY DEFAULT Mychart, [facility] Provider 01/14/2025 MyChart Message Enc [facility] [address] Bruno Fernandes MD My toec 01/01/2025 Prep for Procedure [facility] [address] [address] Bruno Fernandes MD 01/01/2025 Orders Only [facility] [address] [address] Kelsea Vinson MA 01/01/2025 Orders Only [facility], [address] [address] Bruno Fernandes MD 12/30/2024 2:15 PM CDT Office Visit [facility] [address] [place] [address] Bruno Fernandes MD Peripheral Vascular Disease 12/30/2024 Travel 12/25/2024 MyChart Message Enc [facility] Medical Group Multispecialty Care - [facility] [address] [facility], [address] [place] [address] Katharina, [facility] Provider Appointment Reminder from Last 3 Months Immunizations Immunization Administration Dates Next Due Hepatitis B (Generic: Adult) 02/22/2023,01/24/20 23 Influenza (Generic) 06/05/2022 Influenza Adult (Generic) 05/02/2022,04/28/2019 Pneumococcal (Prevnar 20) 05/02/2022 Tdap (Generic) 01/16/2015 Family History Medical History Relation Comments Cancer Father COPD Mother Cancer Mother Relation Status Comments Father Mother Alive Social History Tobacco Use Types Packs/Day Years Used Date Smoking Tobacco: Never Smokeless Tobacco: Never Tobacco Cessation:Counseling Given: No Alcohol Use Standard Drinks/Week Comments Never 0 (1 standard drink = 0.6 oz pur e alcohol) OASIS D0700: Social Isolation Answer Da te Recorded Frequency of experiencing loneliness or isolatio n Never 01/27/2025 OASIS A1250: Transportation Answer Date Recorded Lack of Transportation (Medical) Yes 01/27/2025 Lack of Transportation (Non-Medical) No 01/27/2025 Patient Unable or Declines to Respond No 01/27/2025 OASIS B1300: Health Literacy Answer Neno e Recorded Frequency of needing help to read materials from doctor or pharmacy Sometimes 01/27/2025 B1300 Health Literacy Answer Date Recor ded How often do you need to hav e someone help you when you read instructions, pamphlets, or other written material from your doctor or pharmacy? Sometimes 01/18/2025 [facility] Utilities Answer Date Recorded In the past 12 months has e [employer], gas, oil, or water [employer] threatened to shut off services in your home? No 01/18/2025 Humiliation, Afraid, Rape, and Kick questionnair e Answer Date Recorded Within the last year, have y ou been afraid of your partner or ex-partner? No 01/18/2025 Within the last year, have y ou been humiliated or emotionally abused in other ways by your partner or ex-partner? No Within the last year, have y ou been kicked, hit, slapped, or otherwise physically hurt by your partner or ex-partner? No 01/18/2025 Within the last year, have y ou been raped or forced to have any kind of sexual activity by your partner or ex-partner? No 01/18/2025 Social Connection and Isolat ion Panel [NHANES] Answer Date Recorded In a typical week, how many times do you talk on the phone with family, friends, or neighbors? More than three times a week 07/22/2024 How often do you get togethe r with friends or relatives? More than three times a week 07/22/2024 How often do you attend chur or baptism services? More than 4 times per year 07/22/2024 Do you belong to any clubs o r organizations such as methodist groups, unions, fraternal or athletic groups, or [...] housing, medical care, and heating? Somewhat hard 01/18/2025 PHQ-2 Answer Date Recorded Patient Health Questionnaire-2 Score 0 07/21/2024 [facility] Occupat ional Health - Occupational Stress Questionnaire Answer Date Recorded Do you feel stress - tense, restless, nervous, or anxious, or unable to sleep at night because your mind is troubled all the time - these days? To some extent 01/18/2025 Exercise Vital Sign Answer Date Recorde d On average, how many days pe r week do you engage in moderate to strenuous exercise (like a brisk walk)? 0 days 01/18/2025 On average, how many minutes do you engage in exercise at this level? 0 min 01/18/2025 Hunger Vital Sign Answer Date Recorded Within the past 12 months, y ou worried that your food would run out before you got the money to buy more. Sometimes true Within the past 12 months, t he food you bought just didn't last and you didn't have money to get more. Sometimes true PRAPARE - Transportation Answer Date Re corded In the past 12 months, has l ack of transportation kept you from medical appointments or from getting medications? No 12/22 In the past 12 months, has l ack of transportation kept you from meetings, work, or from getting things needed for daily living? No 01/18/2025 Housing Stability Vital Sign Answer Neno e Recorded In the last 12 months, was t here a time when you were not able to pay the mortgage or rent on time? No 01/18/2025 In the past 12 months, how m any times have you moved where you were living? 0 01/18/2025 At any time in the past 12 m [facility], were you homeless or living in a alf (including now)? No 01/18/2025 Comments No Sex and Gender Information Value Date Recorded Sex Assigned at Female 09/09/2024 2:45 PM [employer] Legal Sex Female 7:51 PM CDT Gender Identity Not on file Sexual Orientation Not on file Last Filed Vital Signs Vital Sign Reading Time Taken Comments Blood Pressure 120/80 02/10/2025 9:20 AM CDT Pulse 120 02/10/2025 9:20 AM CDT Temperature 36.1 C (97 F) 02/10/2025 9:20 AM CDT Respiratory Rate 18 02/10/2025 9:20 AM CDT Oxygen Saturation 97% 02/10/2025 9:20 AM CDT Inhaled Oxygen Concentration - - Weight 106.1 kg (234 lb) 02/11/2025 9:14 AM CDT Height 165.1 cm (5' 5) 02/11/2025 9:14 AM CDT Body Mass Index 38.94 02/11/2025 9:14 AM CDT Plan of Treatment Upcoming Encounters Date Type Department Care Team (Late st Contact Info) Description 02/17/2025 9:00 AM CDT Appointment [address] [place] [address] [place] [address] Chula Montes RN 02/19/2025 1:28 PM CDT Hospital Encounter [facility] [place] [address] Bruno Fernandes MD Three [facility]. [address] [address] 02/19/2025 1:28 PM CDT - 02/19/2025 2:34 PM CDT Surgery [facility] [place], [place] [address] Bruno Fernandes MD [address] [id number] AMPUTATION TOE (LEFT SECOND TOE) 02/24/2025 8:15 AM CDT Appointment [facility] [place], [place] [address] Anila Godinez APNP [address] [facility] [address] [place] [id number] Scheduled Procedures Name Priority Associated Diagnoses Date/Ti me AMPUTATION TOE Diabetic ulcer of toe associated with type 2 diabetes mellitus, limited to breakdown of skin ([facility]) 02/19/2025 1:28 PM CDT Health Maintenance Due Date Last Done Comments Colorectal Cancer Screening Colonoscopy (10 Years) 1966 Annual Physical 1969 Diabetes: Retinopathy Eye Exam 1984 Hepatitis C 1984 Mammogram Screening 2006 Zoster Vaccines (1 of 2) 2016 Hepatitis B Vaccines (3 of 3 - 19+ 3-dose series) 07/26/2023 02/22/2023, 01/23/2023 COVID-19 Vaccine (5 - 2023- season) 2024 05/02/2022, 06/23/2021, 11/07/2020, Additional history exists PHQ-2 (Physician [place]) 07/22/2024 07/21/2024 DTaP, Tdap and Td Vaccines (2 - Td or Tdap) 01/16/2025 01/16/2015 Hemoglobin A1C 07/22/2025 01/19/2025, 06/23, 05/14/2024 Lipid Panel 01/19/2026 01/19/2025 Pneumococcal Vaccine: 50+ Years Completed 05/02/2022 Meningococcal B Vaccine Aged Out No l onger eligible based on patient's age to complete this topic Meningococcal Vaccine Aged Out No sean geovanny eligible based on patient's age to complete this topic RSV Immunizations Under 20 Months Aged Out No longer eligible based on patient's age to complete this topic Goals Goal Patient Goal Type Associated Problems Recent Progress Patient-Stated? Author Monitor - able to maintain pain control Lifestyle No Sharath Rodríguez RN Safety Patient/family will have appropriate support at home upon discharge Lifestyle No Vivien Kenyon RN Family - family caregiver with be involved in care transitions and discharge planning Lifestyle No Maria Victoria Saldana JIG OPERATORwater control supervisor - family caregiver with be involved in care transitions and discharge planning Lifestyle No Maria Victoria Saldana JIG OPERATOR Autogenerated Goal Care Plan Autogenerated Problem No Anjelica Bassett RN Interventions Community Resource Recommendations Community Resource Services Recommended Domains Addressed Status Status Reason/Outcome Date/Time [facility] Financial Assistance Financial Resource Strain Recommended 02/01/2025 10:[address] [facility] Financial Assistance Financial Resource Strain Recommended 02/01/2025 10:19 PM CDT from Last 12 Months Medical Devices Implanted Type Area Science Instructor Device Identifier Shelf Expiration Date Model / Serial / Lot [employer] Hemodialysis Catheter Implanted:Qty: 1 on 06/10/2024 by Bruno Fernandes MD at [facility] [place] Right: Chest [employer] 03/21/2026 [id number] / / [id number] Procedures Procedure Name Priority Date/Time Associated Diagnosis Comments CBC W/DIFF AUTOMATED MAGEN 01/23/2025 11:35 AM CDT POCT GLUCOSE - DOCKED DEVICE Routine 01/23/2025 11:01 AM CDT BASIC METABOLIC PANEL Routine 01/23/2025 8:12 AM CDT POCT GLUCOSE - DOCKED DEVICE Routine 01/23/2025 7:43 AM CDT POCT GLUCOSE - DOCKED DEVICE Routine 01/22/2025 9:24 PM CDT POCT GLUCOSE - DOCKED DEVICE Routine 01/22/2025 4:14 PM CDT CBC W/DIFF AUTOMATED Routine 01/22/2025 1:14 PM CDT BASIC METABOLIC PANEL Routine 01/22/2025 1:14 PM CDT POCT GLUCOSE - DOCKED DEVICE Routine 01/22/2025 10:45 AM CDT POCT GLUCOSE - DOCKED DEVICE Routine 01/22/2025 6:26 AM CDT POCT GLUCOSE - DOCKED DEVICE Routine 01/21/2025 7:40 PM CDT POCT GLUCOSE - DOCKED DEVICE Routine 01/21/2025 3:44 PM CDT POCT GLUCOSE - DOCKED DEVICE Routine 01/21/2025 11:51 AM CDT POCT GLUCOSE - DOCKED DEVICE Routine 01/21/2025 6:03 AM CDT CBC W/DIFF AUTOMATED Routine 01/21/2025 4:20 AM CDT BASIC METABOLIC PANEL Routine 01/21/2025 4:20 AM CDT VANCOMYCIN Routine 01/21/2025 4:20 AM CDT POCT GLUCOSE - DOCKED DEVICE Routine 01/20/2025 9:04 PM CDT AMPUTATION TOE 01/20/2025 8:26 PM CDT NECROTIC LEFT FOOT POCT GLUCOSE - DOCKED DEVICE Routine 01/20/2025 4:35 PM CDT POCT GLUCOSE - DOCKED DEVICE Routine 01/20/2025 11:57 AM CDT VANCOMYCIN Routine 01/20/2025 4:30 AM CDT BASIC METABOLIC PANEL Routine 01/20/2025 4:30 AM CDT CBC W/DIFF AUTOMATED Routine 01/20/2025 4:30 AM CDT POCT GLUCOSE - DOCKED DEVICE Routine 01/20/2025 1:11 AM CDT PATHOLOGY Routine 01/20/2025 12:00 AM CDT POCT GLUCOSE - DOCKED DEVICE Routine 01/19/2025 8:35 PM CDT MRI FOOT LT WO CON STAT 01/19/2025 5: 33 PM CDT POCT GLUCOSE - DOCKED DEVICE Routine 01/19/2025 4:01 PM CDT POCT GLUCOSE - DOCKED DEVICE Routine 01/19/2025 11:12 AM CDT CULTURE, BACTERIA, BLOOD Routine 01/19/2025 8:34 AM CDT CULTURE, BACTERIA, BLOOD Routine 01/19/2025 8:29 AM CDT POCT GLUCOSE - DOCKED DEVICE Routine 01/19/2025 6:20 AM CDT LIPID PANEL Routine 01/19/2025 4:35 AM CDT THYROID STIM HORMONE TSH Routine 01/19/2025 4:35 AM CDT HEMOGLOBIN, GLYCOSYLATED Routine 01/19/2025 4:35 AM CDT BASIC METABOLIC PANEL Routine 01/19/2025 4:35 AM CDT CBC W/DIFF AUTOMATED Routine 01/19/2025 4:35 AM CDT HEPATITIS B POST-VACCINE ANTIBODY Routine 01/19/2025 4:35 AM CDT POCT GLUCOSE - DOCKED DEVICE Routine 01/19/2025 12:42 AM CDT POCT GLUCOSE - DOCKED DEVICE Routine 01/18/2025 8:00 PM CDT POCT GLUCOSE - DOCKED DEVICE Routine 01/18/2025 3:21 PM CDT POCT GLUCOSE - DOCKED DEVICE Routine 01/18/2025 2:11 PM CDT ECG 12-LEAD Routine 01/18/2025 2:05 PM CDT PROTHROMBIN TIME, VENOUS STAT 01/18/2025 2:04 PM CDT PARTIAL THROMBOPLASTIN TIME,PTT STAT 01/18/2025 2:04 PM CDT XR FOOT LT 3V STAT 01/18/2025 11:31 AM CDT CULTURE, BLOOD, PCR PANEL Routine 01/18/2025 11:15 AM CDT CULTURE, BACTERIA, BLOOD STAT 01/18/2025 11:15 AM CDT CULTURE, BACTERIA, BLOOD STAT 01/18/2025 11:03 AM CDT C-REACTIVE PROTEIN Routine 01/18/2025 11 :03 AM CDT COMPREHENSIVE METABOLIC PANEL STAT 01/18/2025 11:03 AM CDT LACTIC ACID W REFLEX (SEPSIS) STAT 01/18/2025 11:03 AM CDT CBC W/DIFF AUTOMATED STAT 01/18/2025 11:03 AM CDT CRITICAL CARE Routine 01/18/2025 10:56 AM CDT from Last 3 Months Results * (ABNORMAL) CBC W/DIFF AUTOMATED (01/23/2025 11:35 AM CDT) Only the most recent of6 resultswithin the time period is included. WBC 18.26(H) 4.5 - 11.0 x10'3/uL 01/23/2025 12:28 PM CDT [facility] RBC 2.68(L) 4.20 - 5.40 x10'6/uL 01/23/2025 12:28 PM CDT [facility] HGB 7.9(L) 12.0 - 16.0 G/DL 01/23/2025 12:28 PM CDT [facility] HCT 25.8(L) 38.0 - 48.0 % 01/23/2025 12:28 PM CDT [facility] MCV 96.3 81.0 - 99.0 FL 01/23/2025 12:28 PM CDT [facility] MCH 29.5 27.0 - 31.0 PG 01/23/2025 12:28 PM CDT [facility] MCHC 30.6(L) 32.0 - 36.0 G/DL 01/23/2025 12:28 PM CDT [facility] RDW 14.0 11.5 - 14.5 % 01/23/2025 12:28 PM CDT [facility] PLT 247 130 - 400 x10'3/uL 01/23/2025 12:28 PM CDT [facility] MPV 11.0 9.3 - 12.2 FL 01/23/2025 12:28 PM CDT [facility] DIFFERENTIAL TYPE MANUAL DIFFERENTIAL 01/23/2025 12:50 PM CDT [facility] SEG NEUTROPHILS 92 % 12:50 PM CDT [facility] LYMPHOCYTES 5 % 01/23/2025 12:50 PM CDT [facility] MONOCYTES 3 % 01/23/2025 12:50 PM CDT [facility] ABS. NEUTROPHILS 16.80(H) 1.80 - 7.70 x10'3/uL 01/23/2025 12:50 PM CDT [facility] ABS. LYMPHOCYTES 0.91(L) 1.00 - 4.80 x10'3/uL 01/23/2025 12:50 PM CDT [facility] ABS. MONOCYTES 0.55 0.24 - 0.86 x10'3/uL 01/23/2025 12:50 PM CDT [facility] RBC MORPHOLOGY RBC MORPHOLOGY APPEARS NORMAL. SLIDE REVIEWED. 01/23/2025 12:50 PM CDT [facility] PLT EST. ADEQUATE 01/23/2025 12:50 PM CDT [facility] 01/23/2025 11:3 5 AM CDT us Donnie Hernandez DO LABORATORY Final Result [facility] [address] [place] [address], [place] [phone] * (ABNORMAL) POCT glucose (01/23/2025 11:01 AM CDT) Only the most recent of22 resultswithin the time period is included. GLUCOSE POC 212(H) 70 - 99 mg/dL 01/23/2025 11:18 AM CDT [facility] 01/23/2025 11:0 1 AM CDT Reggie Ayala MD POCT ORDERABLES - DEVICE Vandana lama Result [facility] [address] [place] [address], [place] [phone] * (ABNORMAL) BASIC METABOLIC PANEL (01/23/2025 8:12 AM CDT) Only the most recent of5 resultswithin the time period is included. GLUCOSE 86 70 - 99 MG/DL 01/23/2025 9:03 AM CDT [facility] BUN 66(H) 7 - 18 MG/DL 01/23/2025 9:03 AM CDT [facility] CREATININE S/P/B 10.60(HH) 0.55 - 1.02 MG/DL 01/23/2025 9:03 AM CDT [facility] Comment:NOT CALLED PER CRITI ANDIE VALUE POLICY SODIUM S/P/B 128(L) 136 - 145 MMOL/L 01/23/2025 9:03 AM CDT [facility] POTASSIUM S/P/B 5.4(H) 3.5 - 5.1 MMOL/L 01/23/2025 9:03 AM CDT [facility] Comment:SLIGHT HEMOLYSIS, RE SULT MAY BE AFFECTED. CHLORIDE S/P/B 97 97 - 115 MMOL/L 01/23/2025 9:03 AM CDT [facility] CO2 18.7(L) 21 - 32 MMOL/L 01/23/2025 9:03 AM CDT [facility] CALCIUM S/P/B 8.9 8.5 - 10.1 MG/DL 01/23/2025 9:03 AM CDT [facility] ANION GAP 12.3(H) 2 - 10 MMOL/L 01/23/2025 9:03 AM CDT [facility] BUN CREATININE RATIO 6.2 6 - 26 01/23/2025 9:03 AM CDT [facility] GFR ESTIMATE 4(L) >90 ML/MIN/1. 73 M2 01/23/2025 9:03 AM CDT [facility] Comment: NOTE: eGFR is not calculated for patients <18 years of age or gender unknown. This is an estimated GFR calculation using the new CKD EPI creatinine equation without race and so does not require a correction factor for race. This estimated GFR should not be used for calculating drug doses. 01/23/2025 8:12 AM CDT Donnie Hernandez DO LABORATORY Final Result [facility] [address] [place] [address], * Vancomycin Random Level (01/21/2025 4:20 AM CDT) Only the most recent of2 resultswithin the time period is included. VANCOMYCIN RANDOM 18.7 MCG/ML 01/21/2025 6:03 AM CDT [facility] Comment:NO THERAPEUTIC RANGE AVAILABLE LAST DOSE UNKNOWN LAST DOSE 01/21/2025 6:24 AM CDT [facility] 01/21/2025 4:2 0 AM CDT George Badillo MD LABORATORY Final Result [facility] [address] [place] [address], * Pathology (01/20/2025 12:00 AM CDT) PATHOLOGY [facility] Department of Laboratory Medicine [address] [place] [address] , extension [phone] Pathology Report Surgical Pathology Report Name: ASHWINI FAY Specimen #: [id number] Age: 2 1965 (Age: 59) Location: [id number] Sex: F Procedure Date: 01/20/2025 Hospital #: [id number] Date Received: 01/21/2025 Date Reported: 01/25/2025 Provider: BRUNO AYALA MD Source: Toe, left great Clinical History: Necrotic left foot. FINAL DIAGNOSIS: Left great toe, amputation: Extensive soft tissue ulceration and necrosis with underlying acute osteomyelitis. Acute osteomyelitis involves the surgical bone margin. Gross Description: Received in formalin, labeled with a patient label and as left great toe is a 5.0 x 2.5 x 2.0 cm toe partially covered with firm dusky almost black-stone skin. There is a nail at the distal end that is thickened and yellow. The toe is sectioned to reveal the soft tissue is red-brown and the bone is red-brown. The soft tissue near the surgical margin is partially liquefied and dusky stone-green. The surgical margin is shaved. Lead Programmer Analyst tissue is submitted as follows: 1 section from distal end of toe and section from soft tissue near surgical margin 2 bone from surgical margin. Cassettes 1 and 2 are submitted following decalcification. Gross examination (when applicable) was performed at [facility], [address] [place] [address]. This case [place] [address]. Electronically Signed Out LINDA BOSS MD [facility] TISSUE STRUCTURE OF TOE OF LEFT FOOT / Unknown 01/20/2025 8:42 PM CDT us Bruno Fernandes MD PATHOLOGY/CYTOLOGY ORDERABLES Fi nal Result [facility] [address] [place] [address], [id number] * MRI FOOT LT WO CON (01/19/2025 5:33 PM CDT) Anatomical Region Laterality Modality Foot Magnetic Resonan ce 01/19/2025 6:27 PM CDT Impressions 01/19/2025 6:33 PM CDT IMPRESSION: 1. Significantly limited exam due to motion artifact and susceptibility artifact related to metallic clip in the region of the second and third proximal phalanx. 2. Within the limitations of this study, there is increased STIR signal within the first proximal phalanx which may indicate osteomyelitis, suboptimally assessed. 3. 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 4. Fatty atrophy of the intrinsic foot musculature. Referred By: Interpreted By: Roc Gonzales MD, 01/19/2025 6:27 PM Narrative 01/19/2025 6:33 PM CDT [address] [address] Examination: MRI FOOT LT WO CON Exam time: 01/19/2025 5:07 PM Clinical history: LEFT GREAT TOE NECROSIS Comparison: Radiograph 01/18/2025. Technique: Multiplanar, multisequence MR images of the left foot were obtained without the use of contrast. Findings: There is significant motion artifact degrading image quality and limiting sensitivity. Additionally, there is significant susceptibility artifact in the region of the second and third proximal phalanx related to metallic clip identified on comparison radiographs. This artifact obscures assessment of regional structures further limiting sensitivity. Within the limitations of this study, there is increased STIR signal within the first proximal phalanx which may indicate osteomyelitis, suboptimally assessed. No other distinct abnormal STIR signal identified to suggest osteomyelitis, again within the limitations of this study. Advanced arthritic changes of the midfoot articulations with severe changes seen at the second through fifth tarsometatarsal joints. There is fatty atrophy of the intrinsic foot musculature. Procedure Note Roc Gonzales MD - 01/19/[address] [address] Examination: MRI FOOT LT WO CON Exam time: 01/19/2025 5:07 PM Clinical history: LEFT GREAT TOE NECROSIS Comparison: Radiograph 01/18/2025. Technique: Multiplanar, multisequence MR images of the left foot wereobtained without the use of contrast. Findings: There is significant motion artifact degrading image quality and limitingsensitivity. Additionally, there is significant susceptibility artifact inthe region of the second and third proximal phalanx related to metallicclip identified on comparison radiographs. This artifact obscuresassessment of regional structures further limiting sensitivity. Within the limitations of this study, there is increased STIR signalwithin the first proximal phalanx which may indicate osteomyelitis,suboptimally assessed. No other distinct abnormal STIR signal identifiedto suggest osteomyelitis, again within the limitations of this study. Advanced arthritic changes of the midfoot articulations with severechanges seen at the second through fifth tarsometatarsal joints. There isfatty atrophy of the intrinsic foot musculature. IMPRESSION: 1. Significantly limited exam due to motion artifact and susceptibilityartifact related to metallic clip in the region of the second and thirdproximal phalanx. 2. Within the limitations of this study, there is increased STIR signalwithin the first proximal phalanx which may indicate osteomyelitis,suboptimally assessed. 3. 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 4. Fatty atrophy of the intrinsic foot musculature. Referred By: Interpreted By: Roc Gonzales MD, 01/19/2025 6:27 PM us Donnie Hernandez DO MRI Final Result * CULTURE, BACTERIA, BLOOD (01/19/2025 8:34 AM CDT) Only the most recent of4 resultswithin the time period is included. SPEC DESCRIPTION BLOOD 01/19/2025 7:55 AM CDT [facility] SPECIAL REQUESTS NO SPECIAL REQUEST 01/19/2025 7:55 AM CDT [facility] CULTURE RESULT NO GROWTH 5 DAYS 01/24/2025 8:56 AM CDT [facility] BLOOD SPECIMEN OBTAINED FOR BLOOD CULTURE / Unknown 01/19/2025 8:34 AM CDT 01/19/2025 8:38 AM CDT Donnie Hernandez DO MICROBIOLOGY - GENERAL ORDERABLE S Final Result Performing Organization Address [facility]/ZIP Co de Phone Number [facility] [address] [place] [address], * HEPATITIS B POST-VACCINE ANTIBODY (01/19/2025 4:35 AM CDT) HEP B SURFACE AB 3.23 mIU/mL 01/19/2025 5:51 AM CDT [facility] Comment: REFERENCE RANGE >=12.00 PATIENT DOES NOT HAVE IMMUNITY TO HEPATITIS B VIRUS 01/19/2025 4:35 AM CDT Saleem Doe MD LABORATORY Final Result Performing Organization Address City/[facility]/ZIP Co de Phone Number [facility] [address] [place] [address], * (ABNORMAL) HEMOGLOBIN, GLYCATED (01/19/2025 4:35 AM CDT) HGB A1C 7.1(H) <5.7 % 01/19/2025 11:16 AM CDT [facility] Comment: ADA GUIDELINES 2010 5.7 TO 6.4% INCREASED RISK OF DIABETES > OR = 6.5% CONSISTENT WITH DIABETES ESTIMATED AVG GLUCOSE 157 mg/dL 01/19/2025 11:16 AM CDT [facility] 01/19/2025 4:35 AM CDT Donnie Hernandez DO LABORATORY Final Result [facility] [address] [place] [address], [place] [phone] * (ABNORMAL) LIPID PANEL (01/19/2025 4:35 AM CDT) CHOLESTEROL 147 <200 MG/DL 01/19/2025 5:40 AM CDT [facility] TRIGLYCERIDES 215(H) <150 MG/DL 01/19/2025 5:40 AM T [facility] HDL 32(L) >40.0 MG/DL 01/19/2025 5:40 AM T [facility] LDL (CALCULATED) 72 <100 MG/DL 01/19/2025 5:40 AM T [facility] Comment:CALCULATED USING THE FRIEDEWALD EQUATION NON HDL CHOLESTEROL 115 <130 MG/DL 01/19/2025 5:40 AM T [facility] CHOL/HDL RATIO 4.6(H) 0.0 - 4.5 01/19/2025 5:40 AM T [facility] VLDL CALCULATION 43 5 - 55 MG/DL 01/19/2025 5:40 AM T [facility] LIPID INTERPRETATION 01/19/2025 5:40 AM T [facility] Comment: NIH CONCENSUS REPORT RECOMMENDATIONS: ADULT CHILD LOW RISK: CHOLESTEROL <200 <170 TRIGLYCERIDE <150 --- HDL >=60 --- LDL <100 <110 BORDERLINE: CHOLESTEROL 200-239 170-199 TRIGLYCERIDE 150-199 --- HDL 40-59 --- LDL 100-159 110-129 HIGH RISK: CHOLESTEROL >=240 >=200 TRIGLYCERIDE >=200 --- HDL <40 --- LDL >=160 >=130 01/19/2025 4:35 AM CDT Donnie Hernandez DO LABORATORY Final Result Performing Organization Address City/[facility] Co de Phone Number [facility] [address] [place] [address], [place] [phone] * THYROID STIM HORMONE, TSH (01/19/2025 4:35 AM CDT) TSH 1.420 0.358 - 3.74 uIU/ML 01/19/2025 5:52 AM CDT [facility] Comment: HIGH DOSES OF BIOTIN MAY INTERFERE WITH THIS TEST RESULT. CORRELATION TO CLINICAL HISTORY AND PRESENTATION RECOMMENDED. 01/19/2025 4:35 AM CDT Donnie Hernandez DO LABORATORY Final Result Performing Organization Address [facility] Co de Phone Number [facility] [address] [place] [address], [place] [phone] * ECG 12 lead (01/18/2025 2:05 PM CDT) 01/18/2025 2:05 PM CDT Narrative [facility] ([facility] RAD - 01/19/2025 8:06 AM CDT [address] Test Date: 2025-01-18 Pat Name: ASHWINI FAY Department: 41 Room: A316 Gender: Female Software Engineering Supervisor: 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 : 1965 Requested By: DONNIE HERNANDEZ Order Number: [id number] Reading MD: Abhinav Juarez Measurements Intervals [place] Rate: 101 P: 25 ME: 203 QRS: 62 QRSD: 96 T: -31 QT: 337 QTc: 437 Interpretive Statements SINUS TACHYCARDIA Poor R Wave Progression Procedure Note Abhinav Juarez MD - 01/19/[address] Test Date: 2025-01-18 Pat Name: ASHWINI FAY Department: 41 Room: 16 Gender: Female Software Engineering Supervisor: [id number] : 1965 Requested By: DONNIE HERNANDEZ Order Number: [id number] Reading MD: Abhinav Juarez Measurements Intervals [place] Rate: 101 P: 25 ME: 203 QRS: 62 QRSD: 96 T: -31 QT: 337 QTc: 437 Interpretive Statements SINUS TACHYCARDIA Poor R Wave Progression Donnie Hernandez DO ECG ORDERABLES Final Result Performing Organization Address City/[facility]/ZIP Co de Phone Number [facility] * PARTIAL THROMBOPLASTIN TIME,PTT (01/18/2025 2:04 PM CDT) PTT 34.7 25.1 - 36.5 SEC 01/18/2025 2:40 PM CDT [facility] 01/18/2025 2:04 PM CDT Donnie Hernandez DO LABORATORY Final Result Performing Organization Address [facility] Co de Phone Number [facility] [address] [place] [address], [place] [phone] * (ABNORMAL) PROTHROMBIN TIME, VENOUS (01/18/2025 2:04 PM CDT) PROTIME 13.4(H) 10.2 - 12.9 SEC 01/18/2025 2:40 PM CDT [facility] INR 1.2 01/18/2025 2:40 PM CDT [facility] Comment: Recommended INR Therapeutic Goals: 2.0-3.0 Routine Therapy 2.5-3.5 Mechanical Prosthetic Valves (High Risk) 01/18/2025 2:04 PM CDT Donnie Hernandez DO LABORATORY Final Result [facility] [address] [place] [address], [place] [phone] * XR FOOT LT 3V (01/18/2025 11:31 AM CDT) Anatomical Region Laterality Modality Foot Radiographic Teressa ging 01/18/2025 12:4 3 PM CDT Impressions 01/18/2025 12:51 PM CDT IMPRESSION: Severe degenerative changes. Generalized soft tissue edema. A discrete wound of the left great toe is not definitively identified on current radiograph. Correlate with clinical exam and consider advanced imaging with CT or MRI if clinically indicated. Ordered By: MARANDA VERAS Interpreted By: Adrian Chiu, 01/18/2025 12:43 PM Narrative 01/18/2025 12:51 PM CDT [facility] [address] [place], [place] [address] IMAGING STUDIES: XR FOOT LT 3V DATE: 01/18/2025 11:04 AM HISTORY: necrotic first toe 59-year-old female. Wound of the left great toe. Patient denies fever or chills. Patient on nightly peritoneal dialysis. COMPARISON: No prior imaging exams of the left foot at this institution. Right foot radiograph 07/21/2024. DISCUSSION: AP, oblique, and lateral views of the left foot on 4 images. Approximately 6 mm metallic clip projecting along the plantar aspect of the distal foot and near the level of the third digit proximal phalanx base on AP and oblique views. Correlate clinically. Generalized soft tissue edema of the leg and foot. Extensive arterial atherosclerotic calcifications in the distal leg and in the foot. The reported wound of the left great toe is not definitively defined on radiograph. No appreciable acute fracture, erosion, or periosteal reaction of the great toe metatarsal or phalanges. Severe degenerative changes in the midfoot tarsal bones and proximal metatarsals suggesting Charcot joints. Midfoot collapse. No ankle effusion. Moderate-sized plantar calcaneal spur. Small posterior calcaneal spur at the Achilles tendon insertion. Procedure Note Adrian Chiu MD - 01/18/[address] [address] IMAGING STUDIES: XR FOOT LT 3VDATE: 01/18/2025 11:04 AM HISTORY: necrotic first toe 59-year-old female. Wound of the leftgreat toe. Patient denies fever or chills. Patient on nightly peritonealdialysis. COMPARISON: No prior imaging exams of the left foot at this institution.Right foot radiograph 07/21/2024. DISCUSSION: AP, oblique, and lateral views of the left foot on 4 images. Approximately 6 mm metallic clip projecting along the plantar aspect ofthe distal foot and near the level of the third digit proximal phalanxbase on AP and oblique views. Correlate clinically. Generalized soft tissue edema of the leg and foot. Extensive arterialatherosclerotic calcifications in the distal leg and in the foot. The reported wound of the left great toe is not definitively defined onradiograph. No appreciable acute fracture, erosion, or periosteal reactionof the great toe metatarsal or phalanges. Severe degenerative changes in the midfoot tarsal bones and proximalmetatarsals suggesting Charcot joints. Midfoot collapse. No ankle effusion. Moderate-sized plantar calcaneal spur. Small posteriorcalcaneal spur at the Achilles tendon insertion. IMPRESSION: Severe degenerative changes. Generalized soft tissue edema. A discretewound of the left great toe is not definitively identified on currentradiograph. Correlate with clinical exam and consider advanced imagingwith CT or MRI if clinically indicated. Ordered By: MARANDA VERAS Interpreted By: Adrian Chiu, 01/18/2025 12:43 PM us Maranda Veras DO GENERAL IMAGING Final Res ult * (ABNORMAL) CULTURE, BLOOD, PCR PANEL (01/18/2025 11:15 AM CDT) [facility] METHICILLIN RESISTANT GENE PCR (BLD) DETECTED(A) NOT DETECTED 01/19/2025 8:12 AM CDT [facility] Comment: Note: Antimicrobial resistance can occur via multiple mechanisms. A NOT DETECTED result from the [employer]ell[employer] antimicrobial resistance gene assay does not indicate antimicrobial susceptibility. A DETECTED result for a genetic marker of antimicrobial resistance gene assay does not indicate antimicrobial susceptibility. Subculturing is required for species identification and susceptibility testing of isolates. ENTEROCOCCUS FAECALIS PCR (BLD) NOT DETECTED NOT DETECTED 01/19/2025 8:12 AM CDT [facility] ENTEROCUCCUS FAECIUM PCR (BLD) NOT DETECTED NOT DETECTED 01/19/2025 8:12 AM CDT [facility] LISTERIA MONOCYTOGENES PCR (BLD) NOT DETECTED NOT DETECTED 01/19/2025 8:12 AM CDT [facility] STAPH SPECIES PCR (BLD) DETECTED(A) NOT DETECTED 01/19/2025 8:12 AM CDT [facility] STAPH AUREUS PCR (BLD) NOT DETECTED NOT DETECTED 01/19/2025 8:12 AM CDT [facility] STAPHYLOCOCCUS EPIDERMIDIS PCR (BLD) DETECTED(A) NOT DETECTED 01/19/2025 8:12 AM CDT [facility] Comment:CALLED TO AND REPEAT ED BACK BY LINDA MERCADO PHARMD AT 0812 ON 01/19/25 SHAILA STAPHYLOCOCCUS LUGDUNENSIS PCR (BLD) NOT DETECTED NOT DETECTED 01/19/2025 8:12 AM CDT [facility] STREPTOCOCCUS PCR (BLD) NOT DETECTED NOT DETECTED 01/19/2025 8:12 AM CDT [facility] STREP AGALACTIAE PCR (BLD) NOT DETECTED NOT DETECTED 01/19/2025 8:12 AM CDT [facility] STREP PNEUMONIAE PCR (BLD) NOT DETECTED NOT DETECTED 01/19/2025 8:12 AM CDT [facility] STREP PYOGENES (GRP A) PCR (BLD) NOT DETECTED NOT DETECTED 01/19/2025 8:12 AM CDT [facility] ACINETOBACTER BAUMANII PCR (BLD) NOT DETECTED NOT DETECTED 01/19/2025 8:12 AM CDT [facility] BACTEROIDES FRAGILIS PCR (BLD) NOT DETECTED NOT DETECTED 01/19/2025 8:12 AM CDT [facility] ENTEROBACTERIACEAE PCR (BLD) NOT DETECTED NOT DETECTED 01/19/2025 8:12 AM CDT [facility] ENTEROBACTER CLOACAE COMP PCR (BLD) NOT DETECTED NOT DETECTED 01/19/2025 8:12 AM CDT [facility] ESCHERICHIA COLI PCR (BLD) NOT DETECTED NOT DETECTED 01/19/2025 8:12 AM CDT [facility] KLEBSIELLA AEROGENES PCR (BLD) NOT DETECTED NOT DETECTED 01/19/2025 8:12 AM CDT [facility] KLEBSIELLA OXYTOCA PCR (BLD) NOT DETECTED NOT DETECTED 01/19/2025 8:12 AM CDT [facility] KLEBSIELLA PNEUMONIAE PCR (BLD) NOT DETECTED NOT DETECTED 01/19/2025 8:12 AM CDT [facility] PROTEUS PCR (BLD) NOT DETECTED NOT DETECTED 01/19/2025 8:12 AM CDT [facility] SALMONELLA PCR (BLD) NOT DETECTED NOT DETECTED 01/19/2025 8:12 AM CDT [facility] SERRATIA MARCESCENS PCR (BLD) NOT DETECTED NOT DETECTED 01/19/2025 8:12 AM CDT [facility] H. INFLUENZAE PCR (BLD) NOT DETECTED NOT DETECTED 01/19/2025 8:12 AM CDT [facility] N. MENINGITIDIS PCR (BLD) NOT DETECTED NOT DETECTED 01/19/2025 8:12 AM CDT [facility] PSEUDOMONAS AERUGINOSA PCR (BLD) NOT DETECTED NOT DETECTED 01/19/2025 8:12 AM CDT [facility] STENOTROPHOMONAS MALTOPHILIA PCR (BLD) NOT DETECTED NOT DETECTED 01/19/2025 8:12 AM CDT [facility] KARLI ALBICANS PCR (BLD) NOT DETECTED NOT DETECTED 01/19/2025 8:12 AM CDT [facility] KARLI AURIS PCR (BLD) NOT DETECTED NOT DETECTED 01/19/2025 8:12 AM CDT [facility] KARLI GLABRATA PCR (BLD) NOT DETECTED NOT DETECTED 01/19/2025 8:12 AM CDT [facility] KARLI KRUSEI PCR (BLD) NOT DETECTED NOT DETECTED 01/19/2025 8:12 AM CDT [facility] KARLI PARAPSILOSIS PCR (BLD) NOT DETECTED NOT DETECTED 01/19/2025 8:12 AM CDT [facility] KARLI TROPICALIS PCR (BLD) NOT DETECTED NOT DETECTED 01/19/2025 8:12 AM T [facility] CRYPTOCOCCUS NEOFORMANS/GATTII PCR (BLD) NOT DETECTED NOT DETECTED 01/19/2025 8:12 AM T [facility] 01/18/2025 11:1 5 AM CDT George Badillo MD MICROBIOLOGY - GENERAL ORDER KYE Final Result [facility] [address] [place] [address], [place] [phone] * LACTIC ACID W REFLEX (SEPSIS) (01/18/2025 11:03 AM CDT) LACTIC ACID VENOUS 1.8 0.4 - 2.0 MMOL/L 01/18/2025 11:41 AM CDT [facility] 01/18/2025 11:0 3 AM CDT Maranda Veras DO LABORATORY Final Res ult Performing Organization Address City/[facility]/ZIP Co de Phone Number [facility] [address] [place] [address], [place] [phone] * (ABNORMAL) COMPREHENSIVE METABOLIC PANEL (01/18/2025 11:03 AM CDT) GLUCOSE 148(H) 70 - 99 MG/DL 01/18/2025 12:22 PM CDT [facility] BUN 64(H) 7 - 18 MG/DL 01/18/2025 12:22 PM CDT [facility] CREATININE S/P/B 10.10(HH) 0.55 - 1.02 MG/DL 01/18/2025 12:22 PM CDT [facility] Comment: Critical Result(s) Called at: 12:21:29 on 01/18/2025 by: JENNIFER JACKSON to and read back by: DAVID CARTAGENA SODIUM S/P/B 130(L) 136 - 145 MMOL/L 01/18/2025 12:22 PM CDT [facility] POTASSIUM S/P/B 4.8 3.5 - 5.1 MMOL/L 01/18/2025 12:22 PM CDT [facility] Comment:SLIGHT HEMOLYSIS, RE SULT MAY BE AFFECTED. CHLORIDE S/P/B 96(L) 97 - 115 MMOL/L 01/18/2025 12:22 PM CDT [facility] CO2 24.3 21 - 32 MMOL/L 01/18/2025 12:22 PM CDT [facility] CALCIUM S/P/B 9.6 8.5 - 10.1 MG/DL 01/18/2025 12:22 PM T [facility] BILIRUBIN TOTAL S/P/B 0.5 0.2 - 1.2 MG/DL 01/18/2025 12:22 PM CDT [facility] Comment: THIS ASSAY IS NOT RECOMMENDED FOR PATIENTS UNDERGOING TREATMENT WITH ELTROMBOPAG DUE TO THE POTENTIAL FOR FALSELY ELEVATED RESULTS. TOTAL PROTEIN S/P/B 7.6 6.4 - 8.2 G/DL 01/18/2025 12:22 PM CDT [facility] ALBUMIN S/P/B 2.4(L) 3.4 - 5.0 G/DL 01/18/2025 12:22 PM T [facility] AST 21 15 - 37 U/L 01/18/2025 12:22 PM T [facility] Comment:SLIGHT HEMOLYSIS, RE SULT MAY BE AFFECTED. ALT 12(L) 14 - 55 U/L 01/18/2025 12:22 PM CDT [facility] ALKALINE PHOSPHATASE S/P/B 135 50 - 136 U/L 01/18/2025 12:22 PM T [facility] ANION GAP 9.7 2 - 10 MMOL/L 01/18/2025 12:22 PM T [facility] BUN CREATININE RATIO 6.3 6 - 26 01/18/2025 12:22 PM CDT [facility] A/G RATIO 0.5(L) 1.0 - 2.0 RATIO 01/18/2025 12:22 PM CDT [facility] GFR ESTIMATE 4(L) >90 ML/MIN/1. 73 M2 01/18/2025 12:22 PM CDT [facility] Comment: NOTE: eGFR is not calculated for patients <18 years of age or gender unknown. This is an estimated GFR calculation using the new CKD EPI creatinine equation without race and so does not require a correction factor for race. This estimated GFR should not be used for calculating drug doses. 01/18/2025 11:0 3 AM CDT Maranda Veras DO LABORATORY Final Res ult Performing Organization Address City/[facility]/ZIP Co de Phone Number [facility] [address] [place] [phone], * (ABNORMAL) C-REACTIVE PROTEIN (01/18/2025 11:03 AM CDT) C-REACTIVE PROTEIN 12.40(H) <0.29 mg/dL 01/18/2025 2:57 PM CDT [facility] 01/18/2025 11:0 3 AM CDT Donnie Hernandez DO LABORATORY Final Result [facility] [address] [place] [address], [place] [phone] * Critical Care (01/18/2025 10:56 AM CDT) Maranda Lira DO - 01/18/2025 10:56 AM CDT Maranda Veras DO 01/18/2025 6:44 PM Critical Care Performed by: Maranda Veras DO Authorized by: Maranda Veras DO Critical care provider statement: Critical care time (minutes): 33 Critical care was necessary to treat or prevent imminent or life-threatening deterioration of the following conditions: Sepsis Critical care was time spent personally by me on the following activities: Blood draw for specimens, discussions with consultants, evaluation of patient's response to treatment, examination of patient, obtaining history from patient or surrogate, re-evaluation of patient's condition, pulse oximetry, ordering and review of radiographic studies, ordering and review of laboratory studies and ordering and performing treatments and interventions Maranda Veras DO PROCEDURE/MINOR SURGICAL ORDERABLES Final Result from Last 3 Months Additional Health Concerns Active Problems Noted Date Diagnosed Date Autogenerated Problem 02/12/2025 Infection Onset Date Last 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 07/22/2024 09/10/2024 Insurance MEDICAID [facility] Advance Directives Documents on File Type Date Recorded Patient Lead Programmer Analyst Expl anation Advance Directives and Living Will 08/04/2024 2:50 PM 06/26/2024 POA FOR HEALTH CARE, 06/29/2024 LIVING WILL * Full Code (Latest Code Status on File) Date Activated Date Inactivated Comments 01/27/2025 4:07 PM * Full Code Date Activated Date Inactivated Comments 01/18/2025 1:53 PM 01/23/2025 3:47 PM * POLST Date Activated Date Inactivated Comments 09/16/2024 10:35 AM 09/18/2024 7:01 PM Question Answer Comments Cardiopulmonary Resuscitatio n (CPR) If patient has no pulse and is not breathing: ATTEMPT Resuscitation CPR Medical Interventions when N OT in Cardiopulmonary Arrest (If patient is found with a pulse and/or is breathing): Comfort Focused - Do NOT Intubate Comfort Options: OxygenSuction * Full Code Date Activated Date Inactivated Comments 09/13/2024 10:04 AM 09/16/2024 10:35 AM * POLST Date Activated Date Inactivated Comments 09/10/2024 4:47 PM 09/13/2024 10:04 AM Question Answer Comments Cardiopulmonary Resuscitatio n (CPR) If patient has no pulse and is not breathing: ATTEMPT Resuscitation CPR Medical Interventions when N OT in Cardiopulmonary Arrest (If patient is found with a pulse and/or is breathing): Comfort Focused - Do NOT Intubate Comfort Options: OxygenSuction Healthcare Agents on File Name Relationship Healthcare Agent Relationship Communication Nicole (Please call Nicole 1st for updates) [facility] Health Care Agent [phone] (Mobile ) Care Teams Psychology Technician Relationship Specialty Start Date End Date Marlo Chavis NP [address] [place] [address] PCP - General NURSE PRACTITIONER 07/30/24 Antony Diaz MD [address] [place] [address] Referring Physician NEPHROLOGY 06/01/24
--- OUTSIDE RECORDS SUMMARY | 2025-02-14 14:16 | XMS_ITS | Encounter Summary ---
Author Organization [facility] Address [address] [place] [address] Care Team Providers Care Valve Technician Name Role Phone Marlo Chavis NP Primary Care Provider [phone] Antony Diaz MD Unavailable [phone] Marlo Chavis E COMMERCE ANALYST Primary Care Provider [phone] Reason for Referral * Surgical (Routine) - New Request Specialty Diagnoses / Procedures Referred By Contac t Referred To Contact Diagnoses ESRD (end stage renal disease) on dialysis ([facility]) Procedures Case request operating room: [facility] Bruno Fernandes MD [address] [address] Phone: tel: fax: Referral ID Status Reason Start Date Expiration Date V isits Requested Visits Authorized [id number] New Request 06/09/2024 06/09/2025 1 1 EL DRAINER Encounter Details Date Type Department Care Team (Late st Contact Info) Description 06/09/2024 Prep for Procedure [place] THREE [facility], [place] [address] [place], [place] [address] Bruno Fernandes MD Three [facility]. [place] [place], [place] [id number] Social History Tobacco Use Types Packs/Day Years [...] from your doctor or pharmacy? Never 06/02/2024 [facility] Utilities Answer Date Recorded In the past 12 months has [facility], gas, oil, or water [employer] threatened to shut off services in your [...] often do you attend chur ch or yarsani services? 1 to 4 times per year 06/02/2024 Do you belong to any clubs o r organizations such as denominational groups, unions, fraternal or athletic groups, or [...] medical care, and heating? Somewhat hard 06/02/2024 [facility] [place] of Occupat ional Health - Occupational Stress [...] any time in the past 12 m [facility], were you homeless or living in a fpc (including now)? No 06/02/2024 Comments No Sex and Gender Information Value Date Recorded Sex Assigned at Female 09/09/2024 2:45 PM BARREL DRAINER Legal Sex Female 7:51 PM CDT Gender Identity Not on file Sexual Orientation Not on file documented as of this encounter Functional Status * Are you deaf or do you have serious difficulty hearing Answer Date of Assessment Author Status No 06/02/2024 8:13 AM BARREL DRAINER Samantha Silva R N Active * Are you blind or do you have serious difficulty seeing, even when wearing glasses? Answer Date of Assessment Author Status No 06/02/2024 8:13 AM BARREL DRAINER Samantha Silva R N Active * Do you have serious difficulty walking or climbing stairs? Answer Date of Assessment Author Status Yes 06/02/2024 8:13 AM BARREL DRAINER Samantha Silva R N Active * Do you have difficulty dressing or bathing? Answer Date of Assessment Author Status No 06/02/2024 8:13 AM BARREL DRAINER Samantha Silva R N Active * Because of a physical, mental, or emotional condition, do you have difficulty doing errands alone such as visiting a doctor's office or shopping? Answer Date of Assessment Author Status No 06/02/2024 8:13 AM BARREL DRAINER Samantha Silva R N Active * Calculated C-SSRS Risk Score (Lifetime/Recent) Answer Date of Assessment Author Status No Risk Indicated 06/10/2024 12:25 PM Dania Valdez RN Active * [place] Suicide Severity Rating Scale (Screener/Recent Self-Report) Question Answer Date of Assessment Author Status 1. Wish to be (Past 1 Month) No 06/10/2024 12:25 PM Shawanda Valdez RN Ac tive 2. Non-Specific Active Suicidal Thoughts (Past 1 Month) No 06/10/2024 12:25 PM BARREL DRAINER Shawanda García RN Ac tive 6. Suicidal Behavior (Lifetime) No 06/10/2024 12:25 PM BARREL DRAINER Shawanda García RN Ac tive documented as of this encounter Mental Status * Because of a physical, mental, or emotional condition, do you have serious difficulty concentrating, remembering, or making decisions? Answer Entry Date Author Status Yes 06/02/2024 8:13 AM BARREL DRAINER Samantha Silva R N Active documented in this encounter Plan of Treatment Upcoming Encounters Date Type Department Care Team (Late st Contact Info) Description 02/17/2025 9:00 AM CDT Appointment [address] [place] [address] Chula Montes RN 02/19/2025 1:28 PM CDT Hospital Encounter [place] [address] Bruno Fernandes MD Three [facility]. [address] [address] 02/19/2025 1:28 PM CDT - 02/19/2025 2:34 PM [place] [address] Bruno Fernandes MD Three [facility]. [address] [address] AMPUTATION TOE (LEFT SECOND TOE) 02/24/2025 8:15 AM CDT Appointment [facility] [address] Anila Godinez APNP [address] [facility] [address] [place] [phone] Scheduled Orders Name Type Priority Associated Diagnoses Orde r Schedule Case request operating room: INSERTION PERMACATH Case Request Routine ESRD (end stage renal disease) on dialysis ([facility]) Once for 1 Occurrences starting 06/09/2024 until 06/09/2024 Scheduled Procedures Name Priority Associated Diagnoses Date/Ti me AMPUTATION TOE 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 07/22/2024 09/10/2024 COVID-19 Rule Out 09/13/2024 09/13/2024 09/13/2024 11:05 AM BARREL DRAINER Influenza - Seasonal 09/13/2024 09/13/2024 025 12:32 AM BARREL DRAINER documented as of this encounter Care Teams Valve Technician Relationship Specialty Start Date End Date Marlo Chavis NP PCP - General NURSE PRACTITIONER 04/23/24 07/29/24 Marlo Chavis NP [address] [facility] [address] [place] [address] PCP - General NURSE PRACTITIONER 07/30/24 Antony Diaz MD [address] [facility] [address] [place] [address] Referring Physician NEPHROLOGY 06/01/24 documented as of this encounter
--- OUTSIDE RECORDS SUMMARY | 2025-02-14 14:16 | XMS_ITS ---
Author Organization [facility] Address [address] [place], [place] [address] Care Team Providers Care Freezer Assistant Name Role Phone LESLY ABRAHAM Unavailable [phone] Answer, Declined Unavailable Unavailable REASON FOR VISIT *Wound check Encounters Encounter Location Date Provider Diagnosis [facility] [place] [address] [place], [place] [id number] 01/25/2025 LESLY ABRAHAM Plan Of Treatment No Information Progress Notes * SotobulmaroDOB:1965 (59 yo F)Acc No.[id number]:01/25/2025 Patient: Karla MITCHELL Provider: Jose Abraham DPM :1965 A ge:59 Y S ex:Female Date:01/25/2025 Address:[address] [place], [place] [id number] Subjective: * Chief Complaints: * 1 . *Wound check. * Medical History: Objective: * Vitals: Assessment: Plan: * Treatment: * Billing Information: * Visit Code: * Procedure Codes: * Electronic signature of LESLY ABRAHAM DPM on 02/14/2025 at 02:15 PM CDT Sign off status: Pending * Provider: Jose Abraham DPM Date: 01/25/2025 Generated for Nancy auguste/Lynette/eTransmitting on: 02/14/2025 02:15 PM CDT
--- OUTSIDE RECORDS SUMMARY | 2025-02-14 14:16 | XMS_ITS | Encounter Summary ---
Author Organization [facility] Address [address] [place] [address] Care Team Providers Care Pulp Tester Name Role Phone Marlo Chavis NP Primary Care Provider [phone] Antony Diaz MD Unavailable [phone] Marlo Chavis LOT WORKER Primary Care Provider [phone] Reason for Referral * Surgical (Routine) - Pending Review Specialty Diagnoses / Procedures Referred By Contac t Referred To Contact Diagnoses PVD (peripheral vascular disease) Procedures Case request operating room: AMPUTATION TOE (RIGHT THIRD TOE AMPUTATION WITH ARTERIOGRAM (RIGHT LEG) Bruno Fernandes MD [address] [address] Phone: tel: fax: Referral ID Status Reason Start Date Expiration Date V isits Requested Visits Authorized [id number] Pending Review 04/24/2024 04/24/2025 1 1 Encounter Details Date Type Department Care Team (Late st Contact Info) Description 04/24/2024 Prep for Procedure [facility] THREE [facility], [facility] [address] [place] [address] Bruno Fernandes MD Three [facility]. [facility] [address] [place] [address] Social History Tobacco Use Types Packs/Day Years Used Date Smoking Tobacco: Never Assessed Comments Unknown Sex and Gender Information Value Date Recorded Sex Assigned at Female 09/09/2024 2:45 PM SENIOR ELECTRICAL CONTROLS ENGINEER Legal Sex Female 7:51 PM CDT Gender Identity Not on file Sexual Orientation Not on file documented as of this encounter Plan of Treatment Upcoming Encounters Date Type Department Care Team (Late st Contact Info) Description 02/17/2025 9:00 AM CDT Appointment [address] [place] [address] [place] [address] Chula Montes RN 02/19/2025 1:28 PM CDT Hospital Encounter [facility] [place] [address] Bruno Fernandes MD Three [facility]. [address] [address] 02/19/2025 1:28 PM CDT - 02/19/2025 2:34 PM CDT Surgery [facility] [place], [place] [address] Bruno Fernandes MD Three [facility]. [address] [id number] AMPUTATION TOE (LEFT SECOND TOE) 02/24/2025 8:15 AM CDT Appointment [facility] [place] [address] Anila Godinez APNP [address] 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 07/22/2024 09/10/2024 COVID-19 Rule Out 09/13/2024 09/13/2024 09/13/2024 11:05 AM SENIOR ELECTRICAL CONTROLS ENGINEER Influenza - Seasonal 09/13/2024 09/13/2024 025 12:32 AM SENIOR ELECTRICAL CONTROLS ENGINEER documented as of this encounter Care Teams Pulp Tester Relationship Specialty Start Date End Date Marlo Chavis NP PCP - General NURSE PRACTITIONER 04/23/24 07/29/24 Marlo Chavis NP [address] [facility] [address] [place] [address] PCP - General NURSE PRACTITIONER 07/30/24 Antony Diaz MD [address] [facility] [address] [place] [address] Referring Physician NEPHROLOGY 06/01/24 documented as of this encounter
--- OUTSIDE RECORDS SUMMARY | 2025-02-14 14:16 | XMS_ITS | Encounter Summary ---
Author Organization [facility] Address [address] [place] [address] Care Team Providers Care Field Hand Name Role Phone Marlo Chavis NP Primary Care Provider [phone] Antony Diaz MD Unavailable [phone] Marlo Chavis METHODS SPECIALIST Primary Care Provider [phone] Encounter Details Date Type Department Care Team (Late st Contact Info) Description 05/14/2024 Prep for Procedure [place] [facility] THREE [facility], [facility] [address] [place], [place] [id number] Bruno Fernandes MD Three [facility]. [facility] [address] [place] [address] Social History Tobacco Use Types Packs/Day Years [...] materials from doctor or pharmacy Never 05/08/2024 [facility] Utilities Answer Date Recorded In the past 12 months has th e [employer], gas, oil, or water [employer] threatened to shut off services in your [...] time in the past 12 m [facility], were you homeless or living in a halfway (including now)? No 05/13/2024 Comments No Sex and Gender Information Value Date Recorded Sex Assigned at Female 09/09/2024 2:45 PM INFORMATION AND DATA ARCHITECT ANALYST Legal Sex Female 7:51 PM CDT Gender Identity Not on file Sexual Orientation Not on file documented as of this encounter Functional Status * Are you deaf or do you have serious difficulty hearing Answer Date of Assessment Author Status No 05/13/2024 7:21 PM Miya Pack RN Active * Are you blind or do you have serious difficulty seeing, even when wearing glasses? Answer Date of Assessment Author Status No 05/13/2024 7:21 PM Miya Pack RN Active * Do you have serious difficulty walking or climbing stairs? Answer Date of Assessment Author Status No 05/13/2024 7:21 PM Miya Pack RN Active * Do you have difficulty dressing or bathing? Answer Date of Assessment Author Status No 05/13/2024 7:21 PM FAINAT Miya Murillo RN Active * Because of a physical, mental, or emotional condition, do you have difficulty doing errands alone such as visiting a doctor's office or shopping? Answer Date of Assessment Author Status No 05/13/2024 7:21 PM Miya Pack RN Active documented as of this encounter Mental Status * Because of a physical, mental, or emotional condition, do you have serious difficulty concentrating, remembering, or making decisions? Answer Entry Date Author Status No 05/13/2024 7:21 PM Miya Pack RN Active documented in this encounter Plan of Treatment Upcoming Encounters Date Type Department Care Team (Late st Contact Info) Description 02/17/2025 9:00 AM CDT Appointment [address] [place] [address] [place] [address] Chula Montes RN 02/19/2025 1:28 PM CDT Hospital Encounter [facility] [place] [address] Bruno Fernandes MD Three [address] [address] 02/19/2025 1:28 PM CDT - 02/19/2025 2:34 PM CDT [place] [address] Bruno Fernandes MD Three [address] [address] AMPUTATION TOE (LEFT SECOND TOE) 02/24/2025 8:15 AM CDT Appointment [facility] [place] [address] Anila Godinez, ERVIN [address] [facility] [address] [place] [phone] Scheduled Procedures Name Priority Associated Diagnoses Date/Ti me AMPUTATION TOE 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 07/22/2024 09/10/2024 COVID-19 Rule Out 09/13/2024 09/13/2024 09/13/2024 11:05 AM INFORMATION AND DATA ARCHITECT ANALYST Influenza - Seasonal 09/13/2024 09/13/2024 025 12:32 AM INFORMATION AND DATA ARCHITECT ANALYST documented as of this encounter Care Teams Field Hand Relationship Specialty Start Date End Date Marlo Chavis NP PCP - General NURSE PRACTITIONER 04/23/24 07/29/24 Marlo Chavis NP [address] [facility] [address] [place], [place] [phone] PCP - General NURSE PRACTITIONER 07/30/24 Antony Diaz MD [address] [facility] [address] [place], [place] [id number] Referring Physician NEPHROLOGY 06/01/24 documented as of this encounter
--- OUTSIDE RECORDS SUMMARY | 2025-02-14 14:17 | XMS_ITS | Encounter Summary ---
Author Organization [facility] Address [address] [place] [address] Care Team Providers Care Director Check Name Role Phone Antony Diaz MD Unavailable [phone] Marlo Chavsi NP Primary Care Provider [phone] Encounter Details Date Type Department Care Team (Late st Contact Info) Description 02/12/2025 Prep for Procedure [facility], [facility] [address] [place], [place] [id number] Bruno Fernandes MD [facility]. [facility] [address] [place], [place] [id number] Social History Tobacco Use Types Packs/Day Years [...] from your doctor or pharmacy? Sometimes 01/18/2025 [facility] Utilities Answer Date Recorded In the past 12 months has th e [employer], oil, or water [employer] threatened to shut off services in your [...] How often do you attend chur or nondenominational services? More than 4 times per year 07/22/2024 Do you belong to any clubs o r organizations such as pentecostalism groups, unions, fraternal or athletic groups, or [...] Recorded Patient Health Questionnaire-2 Score 0 07/21/2024 [facility] - Occupational Stress [...] any time in the past 12 m [facility], were you homeless or living in a correction (including now)? No 01/18/2025 Comments No Sex and Gender Information Value Date Recorded Sex Assigned at Female 09/09/2024 2:45 PM [employer] Legal Sex Female 7:51 PM CDT Gender Identity Not on file Sexual Orientation Not on file documented as of this encounter Functional Status * Are you deaf or do you have serious difficulty hearing Answer Date of Assessment Author Status Yes 01/18/2025 2:59 PM CDT Petra Agosto RN Active * Are you blind or do you have serious difficulty seeing, even when wearing glasses? Answer Date of Assessment Author Status No 01/18/2025 2:59 PM FAINAT Petra Agosto RN Active * Do you have serious difficulty walking or climbing stairs? Answer Date of Assessment Author Status Yes 01/18/2025 2:59 PM FAINAT Petra Agosto RN Active * Do you have difficulty dressing or bathing? Answer Date of Assessment Author Status No 01/18/2025 2:59 PM FAINAT Petra Agosto RN Active * Because of a physical, mental, or emotional condition, do you have difficulty doing errands alone such as visiting a doctor's office or shopping? Answer Date of Assessment Author Status No 01/18/2025 2:59 PM FAINAT Petra Agosto RN Active documented as of this encounter Mental Status * Because of a physical, mental, or emotional condition, do you have serious difficulty concentrating, remembering, or making decisions? Answer Entry Date Author Status No 01/18/2025 2:59 PM FAINAT Petra Agosto RN Active documented in this encounter Plan of Treatment Upcoming Encounters Date Type Department Care Team (Late st Contact Info) Description 02/17/2025 9:00 AM CDT Appointment [address] [place] [address] [place] [address] Chula Montes RN 02/19/2025 1:28 PM CDT Hospital Encounter [facility] [place] [address] Bruno Fernandes MD Three [facility]. [facility] [address] [place] [address] 02/19/2025 1:28 PM CDT - 02/19/2025 2:34 PM CDT [facility] [place] [place] [address] Bruno Fernandes MD [address] [place] 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 2 diabetes mellitus, limited to breakdown of skin ([facility]) [...] discharge planning Lifestyle No Maria Victoria Saldana ASSISTANT RESEARCH SCIENTISThr coordinator - family caregiver with be involved in care transitions and discharge planning Lifestyle No Maria Victoria Saldana ASSISTANT RESEARCH SCIENTIST Autogenerated Goal Care Plan Autogenerated Problem No Anjelica Bassett RN documented as of this encounter Visit Diagnoses Not on filedocumented in this encounter Additional Health Concerns Active Problems Noted Date Diagnosed Date Autogenerated Problem 02/12/2025 Infection Onset Date Last Indicated Resolved Time 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
--- OUTSIDE RECORDS SUMMARY | 2025-02-14 14:17 | XMS_ITS | Patient Health Record ---
Author Organization [facility] Address [address] [place], [place] [id number] Care Team Providers Care Aircraft Servicer Name Role Phone LESLY ABRAHAM Unavailable [phone] Answer, Declined Unavailable Unavailable LESLY WILSON Unavailable [phone] Allergies Allergen (clinical drug ingredient) Drug/Non Drug Allergy documented on EMR Reaction Allergy Type Onset Date Status Latex Latex Unknown Allergy Active Reason For Referral No Information Medications Medication SIG (Take, Route, Frequency, Duration) Notes Start Date End Date Status Cycloben & Capsaicin-Menthol Active Tresiba Active Furosemide 80 MG 1 tablet Orally Once a day Active Carvedilol 12.5 MG 1 tablet with food O rally Twice a day Active Linezolid 600 MG 1 tablet Orally ever y 12 hrs; Duration: 10 days Active Insulin Lispro Activ e Halie-Justo Rx 1 MG 1 tablet Orally Once a day Active Island 3 Active Gabapentin 300 MG 1 capsule Orally Onc e a day Active Calcium Active Doxepin HCl 25 MG 1 capsule at bedtime Orally Once a day Active Allopurinol 300 MG 1 tablet Orally Once a day Active B12 Active Vitamin D2 Active Womens Multi Active Valsartan Active Sevelamer HCl 800 MG 1 tablet with meals Orally Three times a day Active glipiZIDE 10 MG 1 tablet 30 minutes before breakfast Orally Once a day Active Cephalexin 250 MG 1 capsule Orally thr ee times a day; Duration: 14 days Active Xphozah 30 MG 1 tablet immediately before meals Orally Twice a day Active Vital Signs Height-cm 165.1 cm 12/21/2024 Weight-kg 127.01 kg 12/21/2024 Height 65 in 12/21/2024 Weight 280 lbs 12/21/2024 BMI 46.59 kg/m2 12/21/2024 Encounters Encounter Location Date Provider Diagnosis [facility] [address] [place] [id number] 03/16/2024 LESLY SNOOK Non-pressure chronic ulcer of other part of right foot limited to breakdown of skin L97.511 ; Non-pressure chronic ulcer of other part of left foot limited to breakdown of skin L97.521 ; Type 2 diabetes mellitus with other diabetic neurological complication E11.49 ; Type 2 diabetes mellitus with foot ulcer E11.621 ; Type 2 diabetes mellitus with other circulatory complications E11.59 ; Pain in right foot M79.671 and Left foot pain M79.672 [facility] [address] [place] [address] [id number] 03/30/2024 LESLY SNOOK Non-pressure chronic ulcer of other part of right foot limited to breakdown of skin L97.511 ; Non-pressure chronic ulcer of other part of left foot limited to breakdown of skin L97.521 ; Type 2 diabetes mellitus with other diabetic neurological complication E11.49 ; Type 2 diabetes mellitus with foot ulcer E11.621 ; Type 2 diabetes mellitus with other circulatory complications E11.59 ; Pain in right foot M79.671 and Left foot pain M79.672 [facility] [address] [place] [address] [id number] 04/06/2024 LESLY SNOOK Gangrene, not elsewhere classified I96 and Pain in right foot M79.671 [facility] [address] [place] [address] [id number] 04/13/2024 LESLY SNOOK Gangrene, not elsewhere classified I96 and Atherosclerosis of tangirnaq arteries of extremities with intermittent claudication, bilateral legs I70.213 [facility] [address] [place] [address] [id number] 04/20/2024 LESLY SNOOK Gangrene, not elsewhere classified I96 ; Atherosclerosis of tangirnaq arteries of extremities with intermittent claudication, bilateral legs I70.213 and Pain in right toe(s) M79.674 [facility] [address] [place] [address] [id number] 04/27/2024 LESLY SNOOK Gangrene, not elsewhere classified I96 ; Atherosclerosis of tangirnaq arteries of extremities with intermittent claudication, bilateral legs I70.213 and Pain in right toe(s) M79.674 [facility] [place] [address] [place] [address] [id number] 11/23/2024 LESLY SNOOK Non-pressure chronic ulcer of other part of left foot limited to breakdown of skin L97.521 ; Cellulitis of left foot L03.116 and Left foot pain M79.672 [facility] [address] [place] [address] [id number] 12/07/2024 LESLY SNOOK Non-pressure chronic ulcer of other part of left foot limited to breakdown of skin L97.521 ; Cellulitis of left foot L03.116 and Left foot pain M79.672 [facility] [place] [address] [address] [place] [address] [id number] 12/21/2024 LESLY SNTATYANAK 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 and Pain in left toe(s) M79.675 [facility] [place] [address] [id number] 04/06/2024 LSELY SNOOK [facility] [place] [address] [id number] 04/16/2024 LESLY SNOOK [facility] [place] [address] [id number] 04/24/2024 LESLY SNTATYANAK [facility] [place] [address] [address] [place] [address] [id number] 03/28/2024 [facility] [place] [address] [id number] 04/18/2024 LESLY WILSON Assessments Encounter Date Diagnosis (ICD Code) Assessment Notes Treatment Notes Treatment Clinical Notes Section Notes 03/16/2024 Non-pressure chronic ulcer of other part of right foot limited to breakdown of skin (ICD-10 - L97.511) Ulcer Debridement: Using a 15 blade, the ulcer was sharply debrided down to bleeding tissue. The nonviable tissue was sharply debrided down to the layer of subcutaneous tissue. A dry sterile dressing was applied. Ulcer Plan of Care: The treatment goals are closure of the ulceration within an appropriate time frame. This will require regular debridements every 2 weeks until skin closure has been met. The patient will come in sooner than 2 weeks if the wound develops any signs of infection or deteriorates. The plan of care will be reviewed every month. If there is no change in the size of the wound, we will re evaluate debridement schedule, topical medications being used, as well as modify techniques for offloading the wound. SMALL GRADING SYSTEM Grade 0: Pre-ulcerative Lesion, healed ulcers, presence of bone deformity Grade 1: Superficial Ulcer without subcutaneous tissue involvement Grade 2: Penetration through the subcutaneous tissue (may expose bone, tendon, ligament or joint capsule) Grade 3: Osteitis, abscess or osteomyelitis Grade 4: Gangrene of the foot. Based on clinical findings, the patient has the following grade ulceration: 2 left, 2 right 03/16/2024 Non-pressure chronic ulcer of other part of left foot limited to breakdown of skin (ICD-10 - L97.521) Infection Protocol: Patient instructed to observe foot for signs and symptoms of infection, including but not limited to: increased redness and warmth to the area, increased drainage from the area, foul odor, and/or presence of fever/chills/nausea/ vomiting. If patient experiences any of the above they are to call the office immediately, if someone is not present in the office then proceed to the nearest ER. 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 I suggested they stop using bandaids as they are acting like a tourniquet. I dispensed some disposable tube foam both for protection as well as padding. Consult: Vascular Service for concern for pre-gangrenous toe. I explained that if vascularity is compromised to the toe she could potentially lose the toe 03/30/2024 Non-pressure chronic ulcer of other part of left foot limited to breakdown of skin (ICD-10 - L97.521) Infection Protocol: Patient instructed to observe foot for signs and symptoms of infection, including but not limited to: increased redness and warmth to the area, increased drainage from the area, foul odor, and/or presence of fever/chills/nausea/ vomiting. If patient experiences any of the above they are to call the office immediately, if someone is not present in the office then proceed to the nearest ER. 04/06/2024 Gangrene, not elsewhere classified (ICD-10 - I96) I instructed the patient on daily dressing changes with betadine solution to keep the digit dry. I explained that with dry gangrene it can be monitored and allowed to fall off on its own if necessary. I explained that vascular studies can be beneficial to determine what level she can heal. As long a the dry gangrene does not progress to wet gangrene we can continue local wound care and careful monitoring. I explained that the toe is not salvagable and is lost. She understood. We contacted Dr. Fernandes's office to see if her appointment can be expediated given the recent changes 04/06/2024 Pain in right foot (ICD-10 - M79.671) 04/13/2024 Atherosclerosis of tangirnaq arteries of extremities with intermittent claudication, bilateral legs (ICD-10 - I70.213) 04/13/2024 Gangrene, not elsewhere classified (ICD-10 - I96) I instructed the patient on daily dressing changes with betadine solution to keep the digit dry. I explained that with dry gangrene it can be monitored and allowed to fall off on its own if necessary. I explained that vascular studies can be beneficial to determine what level she can heal. As long a the dry gangrene does not progress to wet gangrene we can continue local wound care and careful monitoring. I explained that the toe is not salvagable and is lost. She understood. Patient will see Vascular on April 25 04/20/2024 Atherosclerosis of tangirnaq arteries of extremities with intermittent claudication, bilateral legs (ICD-10 - I70.213) 04/20/2024 Gangrene, not elsewhere classified (ICD-10 - I96) I instructed the patient on daily dressing changes with betadine solution to keep the digit dry. I explained that with dry gangrene it can be monitored and allowed to fall off on its own if necessary. I explained that vascular studies can be beneficial to determine what level she can heal. As long a the dry gangrene does not progress to wet gangrene we can continue local wound care and careful monitoring. I explained that the toe is not salvagable and is lost. She understood. Continue linezolid unless vascular changes it. Patient will see Vascular on April 25 04/27/2024 Atherosclerosis of tangirnaq arteries of extremities with intermittent claudication, bilateral legs (ICD-10 - I70.213) 04/27/2024 Gangrene, not elsewhere classified (ICD-10 - I96) Dressing change performed today. Patient will now be seen by Vascular Surgery for revascularization and amputations as needed. Recommend patient follow for at-risk foot care after recovery 11/23/2024 Non-pressure chronic ulcer of other part of left foot limited to breakdown of skin (ICD-10 - L97.521) Wound Care Education: Educated patient on proper wound care and answered all of their questions. Informed patient that if the wound develops any signs of infection or gets larger, that they should contact the office as soon as possible for evaluation and treatment. Infection Protocol: Patient instructed to observe foot for signs and symptoms of infection, including but not limited to: increased redness and warmth to the area, increased drainage from the area, foul odor, and/or presence of fever/chills/nausea/ vomiting. If patient experiences any of the above they are to call the office immediately, if someone is not present in the office then proceed to the nearest ER. 11/23/2024 Cellulitis of left foot (ICD-10 - L03.116) 12/07/2024 Non-pressure chronic ulcer of other part of left foot limited to breakdown of skin (ICD-10 - L97.521) Wound Care Education: Educated patient on proper wound care and answered all of their questions. Informed patient that if the wound develops any signs of infection or gets larger, that they should contact the office as soon as possible for evaluation and treatment. Infection Protocol: Patient instructed to observe foot for signs and symptoms of infection, including but not limited to: increased redness and warmth to the area, increased drainage from the area, foul odor, and/or presence of fever/chills/nausea/ vomiting. If patient experiences any of the above they are to call the office immediately, if someone is not present in the office then proceed to the nearest ER. 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 Fernandes today to be seen as soon as possible 12/07/2024 Left foot pain (ICD-10 - M79.672) 11/23/2024 Left foot pain (ICD-10 - M79.672) 04/27/2024 Pain in right toe(s) (ICD-10 - M79.674) 04/20/2024 Pain in right toe(s) (ICD-10 - M79.674) 03/16/2024 Type 2 diabetes mellitus with other diabetic neurological complication (ICD-10 - E11.49) 03/30/2024 Type 2 diabetes mellitus with other diabetic neurological complication (ICD-10 - E11.49) 03/16/2024 Type 2 diabetes mellitus with foot ulcer (ICD-10 - E11.621) 03/30/2024 Type 2 diabetes mellitus with foot ulcer (ICD-10 - E11.621) 03/30/2024 Type 2 diabetes mellitus with other circulatory complications (ICD-10 - E11.59) 03/16/2024 Type 2 diabetes mellitus with other circulatory complications (ICD-10 - E11.59) 03/16/2024 Pain in right foot (ICD-10 - M79.671) 03/30/2024 Pain in right foot (ICD-10 - M79.671) 03/30/2024 Left foot pain (ICD-10 - M79.672) 03/16/2024 Left foot pain (ICD-10 - M79.672) Plan Of Treatment No Information Insurance Providers Payer Name Payer Address Payer Phone Subscriber Number Group Number Insured Name Patient Relationship to Insured Coverage Start Date Coverage End Date [facility] [address] [address] [place] [address] [id number] Karla Talbot Self - patient is the insured Medical (General) History Medical History History ICD Code anemia neuropathy Leg/Feet cramps Gout Diabetic varicose veins restless leg syndrome
--- OUTSIDE RECORDS SUMMARY | 2025-02-14 14:17 | XMS_ITS | Clinical Summary ---
Author Organization [facility] Address [address] [facility] [address] [place] [address] Phone Care Team Providers Care Riveter Hand Name Role Phone Angel Floyd MD Primary Care Provider Allergies No known active allergies Medications lisinopril-hydro CHLOROthiazide (PRINZIDE, ZESTORETIC) 10-12.5 MG Tablet Take 1 Tab by mouth daily. Active atorvastatin (LIPITOR) 40 MG Tablet Take 40 mg by mouth daily. Active Calcium Carbonate (CALCIUM 600 PO) Take 1 Tab by mouth 2 times daily. Active Multiple Vitamins-Mineral s (MULTIVITAMIN PO) Take 1 Tab by mouth daily. Active metoprolol tartrate (LOPRESSOR) 25 MG Tablet Take 25 mg by mouth 2 times daily. Active Family History Medical History Relation Name Comments No Known Problems Father Cancer Mother cervical Relation Name Status Comments Father Mother Alive Social History Tobacco Use Types Packs/Day Years Used Date Smoking Tobacco: Never Alcohol Use Standard Drinks/Week Comments No 0 (1 standard drink = 0.6 oz pur e alcohol) Comments Unknown Sex and Gender Information Value Date Recorded Sex Assigned at Not on file Legal Sex Female 2:35 PM CDT Gender Identity Not on file Sexual Orientation Not on file Occupation Industry Job Start Date Job End Date [employer] Not on file Not on file Not on file Last Filed Vital Signs Vital Sign Reading Time Taken Comments Blood Pressure 160/105 02/19/2017 2:05 PM CDT Pulse 68 02/19/2017 2:05 PM CDT Temperature 36 C (96.8 F) 02/19/2017 2:05 PM CDT Respiratory Rate 16 02/19/2017 2:05 PM CDT Oxygen Saturation 100% 02/19/2017 2:05 PM CDT Inhaled Oxygen Concentration - - Weight 140.6 kg (310 lb) 02/18/2017 11:00 AM CDT Height 165.1 cm (5' 5) 02/18/2017 11:00 AM CDT Body Mass Index 51.59 02/18/2017 11:00 AM CDT Plan of Treatment Health Maintenance Due Date Last Done Comments Hepatitis C Virus (HCV) Screening 1966 TdaP Immunization 1966 Hepatitis B Immunization (1 of 3 - 19+ 3-dose series) 1985 Cologuard 2011 Immunochemical Fecal Occult Blood 2011 Pneumococcal Immunization (5 0+ years) (1 of 1 - PCV) 2016 Zoster Immunization (1 of 2) 2016 Colonoscopy 02/19/2022 02/19/2017 Colorectal Cancer Screening 02/19/2022 SARS-COV-2 Immunization ( - season) 2024 Influenza Immunization (#1) 2025 Respiratory Syncytial Virus (RSV) Immunization (Adult) (1 - 1-dose 75+ series) 2041 Human Papillomavirus (HPV) Immunization Aged Out No longer eligible b ased on patient's age to complete this topic Meningococcal Immunization (ACWY) Aged Out No longer eligible based on patient's age to complete this topic Rotavirus Immunization Aged Out No lo nger eligible based on patient's age to complete this topic Insurance MEDICAID [employer] Care Teams Riveter Hand Relationship Specialty Start Date End Date Angel Floyd MD [address] [facility] [address] [place] [address] PCP - General Internal Medicine 02/13/17
--- OUTSIDE RECORDS SUMMARY | 2025-02-14 14:17 | XMS_ITS | Encounter Summary ---
Author Organization [facility] Address [address] [place] [address] Care Team Providers Care Meal Miller Name Role Phone Antony Diaz MD Unavailable [phone] Marlo Chavis NP Primary Care Provider [phone] Encounter Details Date Type Department Care Team (Latest Contact Info) Description 12/25/2024 [employer] Message [facility] Multispecialty Care - [address] [phone] Katharina, [facility] Provider Appointment Reminder Social History Tobacco Use Types Packs/Day Years [...] from your doctor or pharmacy? Never 07/22/2024 [facility] Utilities Answer Date Recorded In the past 12 months has e [employer], or water [employer] threatened to shut off services in your home? No 09/10/2024 Humiliation, Afraid, Rape, and Kick questionnair e Answer Date Recorded Within the last year, have y ou been afraid of your partner or ex-partner? No 09/10/2024 Within the last year, have y ou been humiliated or emotionally abused in other ways by your partner or ex-partner? No Within the last year, have y ou been kicked, hit, slapped, or otherwise physically hurt by your partner or ex-partner? No 09/10/2024 Within the last year, have y ou been raped or forced to have any kind of sexual activity by your partner or ex-partner? No 09/10/2024 Social Connection and Isolat ion Panel [NHANES] Answer Date Recorded In a typical week, how many times do you talk on the phone with family, friends, or neighbors? More than three times a week 07/22/2024 How often do you get togethe r with friends or relatives? More than three times a week 07/22/2024 How often do you attend chur or amish services? More than 4 times per year 07/22/2024 Do you belong to any clubs o r organizations such as taoism groups, unions, fraternal or athletic groups, or [...] housing, medical care, and heating? Somewhat hard 09/10/2024 PHQ-2 Answer Date Recorded Patient Health Questionnaire-2 Score 0 07/21/2024 [facility] - Occupational [...] medical appointments or from getting medications? No 08/23 In the past 12 months, has l ack of transportation kept you from meetings, work, or from getting things needed for daily living? No 09/10/2024 Housing Stability Vital Sign Answer Neno e Recorded In the last 12 months, was t here a time when you were not able to pay the mortgage or rent on time? Yes 09/10/2024 In the past 12 months, how m any times have you moved where you were living? 0 09/10/2024 At any time in the past 12 m [facility], were you homeless or living in a assisted (including now)? No 09/10/2024 Comments No Sex and Gender Information Value Date Recorded Sex Assigned at Female 09/09/2024 2:45 PM COLLABORATIVE TEACHER Legal Sex Female 7:51 PM CDT Gender Identity Not on file Sexual Orientation Not on file documented as of this encounter Functional Status * Are you deaf or do you have serious difficulty hearing Answer Date of Assessment Author Status No 09/10/2024 3:23 PM Kylah Messer RN Active * Are you blind or do you have serious difficulty seeing, even when wearing glasses? Answer Date of Assessment Author Status No 09/10/2024 3:23 PM Kylah Messer RN Active * Do you have serious difficulty walking or climbing stairs? Answer Date of Assessment Author Status Yes 09/10/2024 3:23 PM Kylah Messer RN Active * Do you have difficulty dressing or bathing? Answer Date of Assessment Author Status No 09/10/2024 3:23 PM Kylah Messer RN Active * Because of a physical, mental, or emotional condition, do you have difficulty doing errands alone such as visiting a doctor's office or shopping? Answer Date of Assessment Author Status No 09/10/2024 3:23 PM Kylah Messer RN Active documented as of this encounter Mental Status * Because of a physical, mental, or emotional condition, do you have serious difficulty concentrating, remembering, or making decisions? Answer Entry Date Author Status No 09/10/2024 3:23 PM Kylah Messer RN Active documented in this encounter Plan of Treatment Upcoming Encounters Date Type Department Care Team (Late st Contact Info) Description 02/17/2025 9:00 AM CDT Appointment [address] [place] [address] [place] [address] Chula Montes RN 02/19/2025 1:28 PM CDT Hospital Encounter Health [place] [address] Bruno Fernandes MD Three [facility]. [facility] [address] [place], [place] [id number] 02/19/2025 1:28 PM CDT - 02/19/2025 2:34 PM CDT Surgery [facility] [place] [address] Bruno Fernandes MD Three [facility] [address] [place] [address] AMPUTATION TOE (LEFT SECOND TOE) 02/24/2025 8:15 AM CDT Appointment [facility] ONE [facility] [place] [address] Anila Godinez, ERVIN [address] [facility] [address] [place] [phone] Scheduled Procedures Name Priority Associated Diagnoses Date/Ti me AMPUTATION TOE Diabetic ulcer of toe associated with type 2 diabetes mellitus, limited to breakdown of skin ([facility]) 02/19/2025 1:28 PM CDT documented as of this encounter Goals Goal Patient Goal Type Associated Problems Recent Progress Patient-Stated? 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
--- OUTSIDE RECORDS SUMMARY | 2025-02-14 14:17 | XMS_ITS | Encounter Summary ---
Author Organization [facility] Address [address] [place] [address] Care Team Providers Care Construction Sales Representative Name Role Phone Antony Diaz MD Unavailable [phone] Marlo Chavis NP Primary Care Provider [phone] Encounter Details Date Type Department Care Team (Late st Contact Info) Description 01/01/2025 Prep for Procedure [facility] THREE [facility], [facility] [address] [place], [place] [phone] Bruno Fernandes MD [facility]. [facility] [address] [place], [place] [phone] Social History Tobacco Use Types Packs/Day Years [...] from your doctor or pharmacy? Never 07/22/2024 [facility] Utilities Answer Date Recorded In the past 12 months has th e [email or web address], oil, or water [employer] threatened to shut off services in your [...] How often do you attend chur or advent services? More than 4 times per year 07/22/2024 Do you belong to any clubs o r organizations such as bahai groups, unions, fraternal or athletic groups, or [...] Recorded Patient Health Questionnaire-2 Score 0 07/21/2024 [facility] - Occupational [...] any time in the past [address] [facility], were you homeless or living in a chcf (including now)? 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 [facility] [address] [place] [address] 02/19/2025 1:28 PM CDT - 02/19/2025 2:34 PM CDT Surgery [facility] ONE [facility] [place] [address] Bruno Fernandes MD Three [facility]. [facility] [address] [place] [address] AMPUTATION TOE (LEFT SECOND TOE) 02/24/2025 8:15 AM CDT Appointment [facility] [place] [address] Anila Godinez APNP [address] [facility] [address] [place] [address] Scheduled Procedures Name Priority Associated Diagnoses Date/Ti me AMPUTATION TOE Diabetic ulcer of toe associated with type 2 diabetes mellitus, limited to breakdown of skin ([facility]) 02/19/2025 1:28 PM CDT documented as of this encounter Goals Goal Patient Goal Type Associated Problems Recent Progress Patient-Stated? 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
--- OUTSIDE RECORDS SUMMARY | 2025-02-14 14:17 | XMS_ITS | Encounter Summary ---
Author Organization [facility] Address [address] [place] [address] Care Team Providers Care Crosstie Inspector Name Role Phone Antony Diaz MD Unavailable [phone] Marlo Chavis NP Primary Care Provider [phone] Encounter Details Date Type Department Care Team (Late st Contact Info) Description 01/19/2025 Prep for Procedure [facility] THREE [facility], [facility] [address] [place], [place] [phone] Bruno Fernandes MD [facility]. [facility] [address] [place], [place] [phone] Social History Tobacco Use Types Packs/Day Years [...] from your doctor or pharmacy? Sometimes 01/18/2025 [facility] Utilities Answer Date Recorded In the past 12 months has th e [employer], oil, or water [employer] threatened to shut off services in your [...] How often do you attend chur or muslim services? More than 4 times per year 07/22/2024 Do you belong to any clubs o r organizations such as alevism groups, unions, fraternal or athletic groups, or [...] Recorded Patient Health Questionnaire-2 Score 0 07/21/2024 [facility] of Occupat ional Health - Occupational [...] time in the past 12 m [facility], were you homeless or living in a care home (including now)? 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 [facility] [address] [place] [address] 02/19/2025 1:28 PM CDT - 02/19/2025 2:34 PM CDT Surgery [place] [place] [address] Bruno eFrnandes MD [address] [place] [address] [address] AMPUTATION TOE (LEFT SECOND TOE) 02/24/2025 8:15 AM CDT Appointment [facility] [place] [address] Anila Godinez APNP [address] [facility] [address] [place] [id number] Scheduled Procedures Name Priority Associated Diagnoses Date/Ti me AMPUTATION TOE Diabetic ulcer of toe associated with type 2 diabetes mellitus, limited to breakdown of skin ([facility]) 02/19/2025 1:28 PM CDT documented as of [...] discharge planning Lifestyle No Maria Victoria Saldana AUDIOLOGY DIRECTORremelt sugar boiler - family caregiver with be involved in care transitions and discharge planning Lifestyle No Maria Victoria Saldana AUDIOLOGY DIRECTOR documented as of this encounter Visit Diagnoses Not on filedocumented in this encounter Additional Health Concerns Infection Onset Date Last Indicated Resolved Time 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
--- OUTSIDE RECORDS SUMMARY | 2025-02-14 14:17 | XMS_ITS | Encounter Summary ---
Author Organization [facility] Address [address] [place] [address] Care Team Providers Care Research Worker Kitchen Name Role Phone Antony Diaz MD Unavailable [phone] Marlo Chavis NP Primary Care Provider [phone] Reason for Referral * Surgical (Routine) - Authorized Specialty Diagnoses / Procedures Referred By Contac t Referred To Contact Diagnoses Diabetic ulcer of toe associated with type 2 diabetes mellitus, limited to breakdown of skin ([facility]) Procedures Case request operating room: AMPUTATION TOE (LEFT SECOND TOE) Bruno Fernandes MD [address] [address] Phone: tel: fax: Referral ID Status Reason Start Date Expiration Date V isits Requested Visits Authorized [id number] Authorized 02/12/2025 02/12/2026 1 1 Encounter Details Date Type Department Care Team (Late st Contact Info) Description 02/12/2025 Prep for Procedure [place] [facility] THREE [facility], [facility] [address] [place], [place] [address] Bruno Fernandes MD Three [facility]. [facility] [address] [place], [place] [phone] Social History Tobacco Use Types Packs/Day Years [...] from your doctor or pharmacy? Sometimes 01/18/2025 [facility] Utilities Answer Date Recorded In the past 12 months [facility] [employer], gas, oil, or water [employer] threatened to shut off services in your [...] How often do you attend chur or zoroastrianism services? More than 4 times per year 07/22/2024 Do you belong to any clubs o r organizations such as spiritism groups, unions, fraternal or athletic groups, or [...] Recorded Patient Health Questionnaire-2 Score 0 07/21/2024 [facility] - Occupational Stress Questionnaire Answer Date Recorded [...] time in the past [address] [facility], were you homeless or living in a care home (including now)? 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 Legal Sex Female 7:51 PM CDT Gender Identity Not on file Sexual Orientation Not on file documented as of this encounter Functional Status * Are you deaf or do you have serious difficulty hearing Answer Date of Assessment Author Status Yes 01/18/2025 2:59 PM FAINAT Petra Agosto RN Active * Are you [...] Date Author Status No 01/18/2025 2:59 PM CDT Petra Agosto , STALIN Active documented in this encounter Plan of Treatment Upcoming Encounters Date Type Department Care Team (Late st Contact Info) Description 02/17/2025 9:00 AM CDT Appointment [address] [place] [address] Chula Montes RN 02/19/2025 1:28 PM CDT Hospital Encounter [facility] [address] Bruno Fernandes MD Three [facility]. [address] [address] 02/19/2025 1:28 PM CDT - 02/19/2025 2:34 PM CDT [place] [address] Bruno Fernandes MD Three [facility]. [address] [address] AMPUTATION TOE (LEFT SECOND TOE) 02/24/2025 8:15 AM CDT Appointment [facility] [place] [address] Anila Godinez APNP [address] [facility] [address] [place] [id number] Scheduled Orders Name Type Priority Associated Diagnoses Orde r Schedule Case request operating room: AMPUTATION TOE (LEFT SECOND TOE) Case Request Routine Diabetic ulcer of toe associated with type 2 diabetes mellitus, limited to breakdown of skin ([facility]) Once for 1 Occurrences starting 02/12/2025 until 02/12/2025 CBC W/DIFF AUTOMATED Lab Routine Diabetic ulcer of toe associated with type 2 diabetes mellitus, limited to breakdown of skin ([facility]) Expected: 02/19/2025, Expires: 02/12/2026 COMPREHENSIVE METABOLIC PANEL Lab Routine Diabetic ulcer of toe associated with type 2 diabetes mellitus, limited to breakdown of skin ([facility]) Expected: 02/19/2025, Expires: 02/12/2026 Scheduled Procedures Name Priority Associated Diagnoses Date/Ti me AMPUTATION TOE Diabetic ulcer of toe associated with type 2 diabetes mellitus, limited to breakdown of skin ([facility]) 02/19/2025 1:28 PM CDT documented as [...] discharge planning Lifestyle No Maria Victoria Saldana NC MANAGERfisheries enforcement officer - family caregiver with be involved in care transitions and discharge planning Lifestyle No Maria Victoria Saldana NC MANAGER Autogenerated Goal Care Plan Autogenerated Problem No Anjelica Bassett RN documented as of this encounter Visit Diagnoses Diagnosis Diabetic ulcer of toe associated with type 2 diabetes mellitus, limited to breakdown of skin ([facility])- Primary Diabetic ulcer of toe associated with type 2 diabetes mellitus, limited to breakdown of skin ([facility])- Primary Diabetic ulcer of toe associated with type 2 diabetes mellitus, limited to breakdown of skin ([facility]) documented in this encounter Additional Health Concerns Active Problems Noted Date Diagnosed Date Autogenerated Problem 02/12/2025 Infection Onset Date Last Indicated Resolved Time 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
[2025-02-14 14:20] LABS: Troponin I < 0.012 ng/mL (0.000-0.034)
--- NOTE | 2025-02-14 14:42 | ED.CHESTPAIN ---
HPI - Chest Pain General Chief Complaint: Chest Pain <Abbie Brenner PA-C - Last Filed: 02/14/25 22:53> Stated Complaint: CP with SOB <Abbie Brenner PA-C - Last Filed: 02/14/25 22:53> Time Seen by Provider: 02/14/25 14:02 <Abbie Brenner PA-C - Last Filed: 02/14/25 22:53> Source: patient <Abbie Brenner PA-C - Last Filed: 02/14/25 22:53> Mode of arrival: EMS <SHERRIE Castaneda Last Filed: 02/14/25 22:53> Limitations: no limitations <Abbie Brenner PA-C - Last Filed: 02/14/25 22:53> History of Present Illness HPI narrative: This is a 59-year-old female that presents to the emergency department for chest pain, abdominal pain. Ongoing since this morning. Reports the pain is burning and sharp in nature. Reports some nausea and vomiting. Patient has history of ESRD on peritoneal dialysis. Reports she recently underwent left great toe amputation. She is scheduled for left 2nd toe amputation this saturday. Denies fevers. <Abbie Brenner PA-C - Last Filed: 02/14/25 22:53> Related Data Home Medications: Home Medications ?Medication ?Instructions ?Recorded ?Confirmed ?Last Taken ?Type calcium 600 mg (as carbonate)-vit 1 tablet PO BID 09/08/19 12/23/24 05/11/24 09:00 History D3 10 mcg (400 unit)-minerals tablet multivitamin 1 tablet PO DAILY 09/08/19 12/23/24 05/11/24 09:00 History furosemide 80 mg tablet 80 mg PO BID 05/09/23 12/23/24 05/11/24 09:00 History vitamin B comp no.3-folic acid 1 1 tablet PO DAILY 05/09/23 12/23/24 05/11/24 09:00 History mg-vit C 60 mg-biotin 300 mcg tablet (Halie-Justo Rx) sevelamer HCl 800 mg tablet 1,600 mg PO DAILY 08/05/23 12/23/24 05/10/24 09:00 History insulin NPH isoph U-100 human 100 35 unit subcut HS 05/11/24 12/23/24 05/10/24 21:00 History unit/mL (3 mL) subcutaneous pen (Humulin N NPH U-100 Insulin KwikPen) sevelamer carbonate 800 mg tablet 2,400 mg PO BIDAC 05/11/24 12/23/24 05/10/24 21:00 History fluticasone propionate 50 1 inh inhalation Q12H 08/20/24 12/23/24 Unknown History mcg/actuation blister powder for inhalation midodrine 2.5 mg tablet 2.5 mg PO BID 08/20/24 12/23/24 Unknown History <Abbie Brenner PA-C - Last Filed: 02/14/25 22:53> Allergies/Adverse Reactions: Allergies Allergy/AdvReac Type Severity Reaction Status Date / Time No Known Allergies Allergy Verified 02/14/25 21:39 <Abbie Brenner PA-C - Last Filed: 02/14/25 22:53> Review of Systems Review of Systems: All systems reviewed & are unremarkable except as noted in HPI and below <Abbie Brenner PA-C - Last Filed: 02/14/25 22:53> [facility] Past Medical History Medical History: Medical History Kidney disease Body mass index (BMI) of 40.1 to 44.9 in adult Splenomegaly Right thigh pain Chest discomfort Vitamin D deficiency, unspecified Postmenopausal Screening for colon cancer Screening for osteoporosis Screening for breast cancer Diabetes mellitus type 2 with complications Blood in stool Anemia, unspecified <Abbie Brenner PA-C - Last Filed: 02/14/25 22:53> Surgical History Surgical History: Surgical History Hx of amputation of foot Hx of ovarian cystectomy H/O section History of gastric surgery 2014 History of hysterectomy Partial 2016 <SHERRIE Castaneda Last Filed: 02/14/25 22:53> Family History Family History: Family History Sibling Patient's sister is in good health Mother Family history of malignant neoplasm of cervix Father Cancer Grandparent Cancer Other Family history of cardiac disorder <Abbie Brenner PA-C - Last Filed: 02/14/25 22:53> Social History Social History: Social History Smoking status: Former smoker Second hand tobacco smoke exposure: No Alcohol intake: never Substance use: never Substance use type: does not use Do You Feel Safe in your Home?: Yes Lack of Transportation: YES Lack of Food: Sometimes True Current Housing: I Have Housing Concerned About Future Housing: No Difficulty Paying Gas/Electric Bills: No Difficulty Paying for Meds: No Currently Unemployed: Decline to Answer Education: High School Diploma/GED Difficulty w/ Childcare or Family Care: No Living arrangements: with family Occupation/Education: retired Gender identity (if verbalized by the patient): Female Spiritual care concerns: No <Abbie Brenner PA-C - Last Filed: 02/14/25 22:53> Exam Narrative: GENERAL: Chronically ill-appearing, well-nourished, and in no acute distress. HEAD: Normocephalic, atraumatic. EYES: EOMI. ENT: Nares clear, no rhinorrhea or epistaxis. Mucous membranes moist. Oropharynx without tonsillar hypertrophy exudate or other lesions. CHEST: Clear to auscultation. No respiratory distress. No wheezes rales or rhonchi HEART: Regular rate and rhythm. No murmur heard. Normal peripheral pulses. ABDOMEN: Soft, nondistended, normal active bowel sounds. Tender to palpation throughout the abdomen, without guarding EXTREMITIES: Right AKA. Left great toe amputation with redness at the metatarsal head. Left second toe with necrosis of the distal phalanx SKIN: Warm, dry, no rash. NEURO: No focal deficits. Alert and oriented x3. PSYCH: Normal mood and affect <Abbie Brenner PA-C - Last Filed: 02/14/25 22:53> Course Course Emergency Course: patient updated on her workup and need for transfer <Abbie Brenner PA-C - Last Filed: 02/14/25 22:53> FIELD LIABILITY GENERALIST/PA Physician Supervision I agree with midlevel documentation; I performed the medical decision making component of this evaluation. Briefly, patient presents here with ischemic toe, vascular surgeon at [facility] so patient transferred there. Seemed to have gone into an arrhythmia here, discussed with photoengraving machine operator/tender who felt more likely sinus tachycardia versus junctional, recommended trialing some metoprolol here. Patient has bed available at [facility] and stable for transfer <Rebeka Moore MD - Last Filed: 02/14/25 23:49> Consultations Consultation #1: Spoke with hospitalist, Dr. Collier, at [facility] who accepts patient as transfer <Abbie Brenner PA-C - Last Filed: 02/14/25 22:53> Date: 02/14/25 <Abbie Brenner PA-C - Last Filed: 02/14/25 22:53> Consultation #2: Spoke with cardiology, Dr. Gan about patient and workup due to persistent tachycardia. She was able to review EKGs. Will give patient 2.5mg Metoprolol IV to see if this helps <Abbie Brenner PA-C - Last Filed: 02/14/25 22:53> Date: 02/14/25 <Abbie Brenner PA-C - Last Filed: 02/14/25 22:53> Vital Signs Vital signs: Vital Signs Temperature 97.9 F 02/14/25 12:54 Pulse Rate 89 02/14/25 12:54 Respiratory Rate 18 02/14/25 12:54 Blood Pressure 121/47 L 02/14/25 12:54 Pulse Oximetry 94 02/14/25 12:54 Oxygen Delivery Room Air 02/14/25 12:54 Temperature 97.9 F 02/14/25 12:54 Pulse Rate 130 H 02/14/25 20:52 Respiratory Rate 25 H 02/14/25 20:22 Blood Pressure 98/57 L 02/14/25 20:22 Pulse Oximetry 88 L 02/14/25 20:22 Oxygen Delivery Room Air 02/14/25 13:10 <Abbie Brenner PA-C - Last Filed: 02/14/25 22:53> Vital Signs Temperature 97.9 F 02/14/25 12:54 Pulse Rate 89 02/14/25 12:54 Respiratory Rate 18 02/14/25 12:54 Blood Pressure 121/47 L 02/14/25 12:54 Pulse Oximetry 94 02/14/25 12:54 Oxygen Delivery Room Air 02/14/25 12:54 Temperature 97.9 F 02/14/25 12:54 Pulse Rate 130 H 02/14/25 20:52 Respiratory Rate 25 H 02/14/25 20:22 Blood Pressure 98/57 L 02/14/25 20:22 Pulse Oximetry 88 L 02/14/25 20:22 Oxygen Delivery Room Air 02/14/25 13:10 <Rebeka Moore MD - Last Filed: 02/14/25 23:49> MDM - Chest Pain MDM Narrative Medical decision making narrative: Patient presents to the ER for chest pain, abdominal pain, vomiting. She is afebrile and nontoxic appearing. Patient is tachycardic, blood pressure soft, but stable. CBC with leukocytosis to 24.8. Hemoglobin appears stable. Metabolic panel with evidence of patient's ESRD. Initial lactic is mildly elevated 2.2. EKG without acute ST changes, a baseline, 3 hour, 6 hour troponins are negative. CT chest/abdomen/pelvis obtained for further evaluation shows right thyroid nodule. Small pericardial effusion. Cirrhosis. Fibroid uterus. Moderate ascites. Large fat and fluid containing umbilical hernia. Urine consistent with infection. Patient also has left second toe necrosis with recent amputation to the great toe with abnormal drainage from the wound. Wound culture obtained, blood cultures obtained. Patient started on IV antibiotics. Patient updated on her workup and need for transfer for higher level of care. Her vascular surgeon is at [facility]. Spoke with hospitalist, who accepts patient as transfer <Abbie Brenner PA-C - Last Filed: 02/14/25 22:53> Differential Diagnosis Differential diagnosis: Likely stable angina, unstable angina pectoris, atypical chest pain, costochondritis and other (gerd, gastritis, esophagitis, UTI) <Abbie Brenner PA-C - Last Filed: 02/14/25 22:53> Lab Data Attestation: I reviewed the patient's lab results. <Abbie Brenner PA-C - Last Filed: 02/14/25 22:53> Result diagrams: 02/14/25 13:40 02/14/25 13:40 <Abbie Brenner PA-C - Last Filed: 02/14/25 22:53> Labs: Lab Results 02/14/25 02/14/25 02/14/25 Range/Units 13:40 15:59 19:49 WBC 24.8 H (4.5-10.0) K/mm3 RBC 3.05 L (4.2-5.4) M/mm3 Hgb 9.1 L (12.0-15.0) g/dL Hct 30.1 L (37.0-47.0) % MCV 98.7 (80-100) fl MCH 29.8 (26-34) pg MCHC 30.2 L (32-36) g/dl RDW 14.7 H (11.5-14.5) % Plt Count 350 (150-375) k/mm3 MPV 10.6 H (7.4-10.4) fl Immature Gran % (Auto) 2.4 H (0-0.5) % Neut % (Auto) 86.6 H (45.5-73.1) % Lymph % (Auto) 5.1 L (18.3-44.2) % [place] % (Auto) 5.0 (2.6-8.5) % Eos % (Auto) 0.4 (0-4.4) % Baso % (Auto) 0.5 (0.2-1.2) % Lymph # (Auto) 1.27 (0.9-3.2) K/mm3 [place] # (Auto) 1.2 H (0.1-0.6) K/mm3 Eos # (Auto) 0.1 (0-0.3) K/mm3 Baso # (Auto) 0.1 (0.0-0.1) K/mm3 Abs Immat Gran (auto) 0.60 H (0.00-0.031) K/mm3 Absolute Neuts (auto) 21.5 H (1.3-6.7) K/mm3 Absolute Nucleated RBC 0.020 H (0.0-0.012) K/mm3 Nucleated RBC % 0.1 (0.0-0.2) % ESR > 140 H (0-20) mm/hr PT 14.4 (11.1-14.7) Seconds INR 1.1 APTT 35.8 (22.3-36.8) Seconds Sodium 135 L (137-145) mmol/L Potassium 4.1 (3.4-5.0) mmol/L Chloride 92 L (98-107) mmol/L Carbon Dioxide 26 (22-30) mmol/L Anion Gap 17 H (4-12) mmol/L BUN 56 H (7-17) mg/dL Creatinine 9.97 H (0.7-1.0) mg/dL Estim Creat Clear Calc 7 ml/min Estimated GFR 4 L (59 - ) Glucose 203 H (65-110) mg/dL POC Capillary Glucose (65-105) mg/dl Lactic Acid 2.2 H (0.7-2.0) mmol/L Calcium 9.4 (8.4-10.2) mg/dL Total Bilirubin 0.4 (0.2-1.3) mg/dL AST 24 (14-36) U/L ALT 18 (6-35) U/L Alkaline Phosphatase 137 H (38-126) U/L Troponin I < 0.012 < 0.012 < 0.012 (0.000-0.034) ng/mL C-Reactive Protein 7.1 H (<1.0) mg/dL Total Protein 7.9 (6.3-8.2) g/dL Albumin 4.0 (3.5-5.1) g/dL Lipase 147 (23-300) U/L Urine Color Yellow (Yellow) Urine Appearance Cloudy H (Clear) Urine pH 5.0 (5.0-9.0) Ur Specific [place] 1.015 (1.001-1.035) Urine Protein 2+ H (Negative) mg/dL Urine Glucose (UA) Negative (Negative) mg/dL Urine Ketones Negative (Negative) mg/dL Ur Blood (Man) Negative (Negative) Urine Nitrate Negative (Negative) Urine Bilirubin Negative (Negative) Urine Urobilinogen 0.2 (<2.0) mg/dL Add Ur Microanalysis Reviewed Leukocyte Esterase Rfl 1+ H (Negative) BERTRAND/UL Urine RBC 0-2 (0-2) /hpf Urine WBC 21-50 H (0-3) /hpf Ur Squamous Epith Cells Moderate (Few) /hpf Urine Bacteria 1+ H /hpf Urine Casts 0-2 07/27/25 Range/Units 21:24 WBC (4.5-10.0) K/mm3 RBC (4.2-5.4) M/mm3 Hgb (12.0-15.0) g/dL Hct (37.0-47.0) % MCV (80-100) fl MCH (26-34) pg MCHC (32-36) g/dl RDW (11.5-14.5) % Plt Count (150-375) k/mm3 MPV (7.4-10.4) fl Immature Gran % (Auto) (0-0.5) % Neut % (Auto) (45.5-73.1) % Lymph % (Auto) (18.3-44.2) % [place] % (Auto) (2.6-8.5) % Eos % (Auto) (0-4.4) % Baso % (Auto) (0.2-1.2) % Lymph # (Auto) (0.9-3.2) K/mm3 [place] # (Auto) (0.1-0.6) K/mm3 Eos # (Auto) (0-0.3) K/mm3 Baso # (Auto) (0.0-0.1) K/mm3 Abs Immat Gran (auto) (0.00-0.031) K/mm3 Absolute Neuts (auto) (1.3-6.7) K/mm3 Absolute Nucleated RBC (0.0-0.012) K/mm3 Nucleated RBC % (0.0-0.2) % ESR (0-20) mm/hr PT (11.1-14.7) Seconds INR APTT (22.3-36.8) Seconds Sodium (137-145) mmol/L Potassium (3.4-5.0) mmol/L Chloride (98-107) mmol/L Carbon Dioxide (22-30) mmol/L Anion Gap (4-12) mmol/L BUN (7-17) mg/dL Creatinine (0.7-1.0) mg/dL Estim Creat Clear Calc ml/min Estimated GFR (59 - ) Glucose (65-110) mg/dL POC Capillary Glucose 177 H (65-105) mg/dl Lactic Acid (0.7-2.0) mmol/L Calcium (8.4-10.2) mg/dL Total Bilirubin (0.2-1.3) mg/dL AST (14-36) U/L ALT (6-35) U/L Alkaline Phosphatase (38-126) U/L Troponin I (0.000-0.034) ng/mL C-Reactive Protein (<1.0) mg/dL Total Protein (6.3-8.2) g/dL Albumin (3.5-5.1) g/dL Lipase (23-300) U/L Urine Color (Yellow) Urine Appearance (Clear) Urine pH (5.0-9.0) Ur Specific [place] (1.001-1.035) Urine Protein (Negative) mg/dL Urine Glucose (UA) (Negative) mg/dL Urine Ketones (Negative) mg/dL Ur Blood (Man) (Negative) Urine Nitrate (Negative) Urine Bilirubin (Negative) Urine Urobilinogen (<2.0) mg/dL Add Ur Microanalysis Leukocyte Esterase Rfl (Negative) BERTRAND/UL Urine RBC (0-2) /hpf Urine WBC (0-3) /hpf Ur Squamous Epith Cells (Few) /hpf Urine Bacteria /hpf Urine Casts <Abbie Brenner PA-C - Last Filed: 02/14/25 22:53> Lab Results 02/14/25 02/14/25 02/14/25 Range/Units 13:40 15:59 19:49 WBC 24.8 H (4.5-10.0) K/mm3 RBC 3.05 L (4.2-5.4) M/mm3 Hgb 9.1 L (12.0-15.0) g/dL Hct 30.1 L (37.0-47.0) % MCV 98.7 (80-100) fl MCH 29.8 (26-34) pg MCHC 30.2 L (32-36) g/dl RDW 14.7 H (11.5-14.5) % Plt Count 350 (150-375) k/mm3 MPV 10.6 H (7.4-10.4) fl Immature Gran % (Auto) 2.4 H (0-0.5) % Neut % (Auto) 86.6 H (45.5-73.1) % Lymph % (Auto) 5.1 L (18.3-44.2) % [place] % (Auto) 5.0 (2.6-8.5) % Eos % (Auto) 0.4 (0-4.4) % Baso % (Auto) 0.5 (0.2-1.2) % Lymph # (Auto) 1.27 (0.9-3.2) K/mm3 [place] # (Auto) 1.2 H (0.1-0.6) K/mm3 Eos # (Auto) 0.1 (0-0.3) K/mm3 Baso # (Auto) 0.1 (0.0-0.1) K/mm3 Abs Immat Gran (auto) 0.60 H (0.00-0.031) K/mm3 Absolute Neuts (auto) 21.5 H (1.3-6.7) K/mm3 Absolute Nucleated RBC 0.020 H (0.0-0.012) K/mm3 Nucleated RBC % 0.1 (0.0-0.2) % ESR > 140 H (0-20) mm/hr PT 14.4 (11.1-14.7) Seconds INR 1.1 APTT 35.8 (22.3-36.8) Seconds Sodium 135 L (137-145) mmol/L Potassium 4.1 (3.4-5.0) mmol/L Chloride 92 L (98-107) mmol/L Carbon Dioxide 26 (22-30) mmol/L Anion Gap 17 H (4-12) mmol/L BUN 56 H (7-17) mg/dL Creatinine 9.97 H (0.7-1.0) mg/dL Estim Creat Clear Calc 7 ml/min Estimated GFR 4 L (59 - ) Glucose 203 H (65-110) mg/dL POC Capillary Glucose (65-105) mg/dl Lactic Acid 2.2 H (0.7-2.0) mmol/L Calcium 9.4 (8.4-10.2) mg/dL Total Bilirubin 0.4 (0.2-1.3) mg/dL AST 24 (14-36) U/L ALT 18 (6-35) U/L Alkaline Phosphatase 137 H (38-126) U/L Troponin I < 0.012 < 0.012 < 0.012 (0.000-0.034) ng/mL C-Reactive Protein 7.1 H (<1.0) mg/dL Total Protein 7.9 (6.3-8.2) g/dL Albumin 4.0 (3.5-5.1) g/dL Lipase 147 (23-300) U/L Urine Color Yellow (Yellow) Urine Appearance Cloudy H (Clear) Urine pH 5.0 (5.0-9.0) Ur Specific [place] 1.015 (1.001-1.035) Urine Protein 2+ H (Negative) mg/dL Urine Glucose (UA) Negative (Negative) mg/dL Urine Ketones Negative (Negative) mg/dL Ur Blood (Man) Negative (Negative) Urine Nitrate Negative (Negative) Urine Bilirubin Negative (Negative) Urine Urobilinogen 0.2 (<2.0) mg/dL Add Ur Microanalysis Reviewed Leukocyte Esterase Rfl 1+ H (Negative) BERTRAND/UL Urine RBC 0-2 (0-2) /hpf Urine WBC 21-50 H (0-3) /hpf Ur Squamous Epith Cells Moderate (Few) /hpf Urine Bacteria 1+ H /hpf Urine Casts 0-2 07/27/25 Range/Units 21:24 WBC (4.5-10.0) K/mm3 RBC (4.2-5.4) M/mm3 Hgb (12.0-15.0) g/dL Hct (37.0-47.0) % MCV (80-100) fl MCH (26-34) pg MCHC (32-36) g/dl RDW (11.5-14.5) % Plt Count (150-375) k/mm3 MPV (7.4-10.4) fl Immature Gran % (Auto) (0-0.5) % Neut % (Auto) (45.5-73.1) % Lymph % (Auto) (18.3-44.2) % [place] % (Auto) (2.6-8.5) % Eos % (Auto) (0-4.4) % Baso % (Auto) (0.2-1.2) % Lymph # (Auto) (0.9-3.2) K/mm3 [place] # (Auto) (0.1-0.6) K/mm3 Eos # (Auto) (0-0.3) K/mm3 Baso # (Auto) (0.0-0.1) K/mm3 Abs Immat Gran (auto) (0.00-0.031) K/mm3 Absolute Neuts (auto) (1.3-6.7) K/mm3 Absolute Nucleated RBC (0.0-0.012) K/mm3 Nucleated RBC % (0.0-0.2) % ESR (0-20) mm/hr PT (11.1-14.7) Seconds INR APTT (22.3-36.8) Seconds Sodium (137-145) mmol/L Potassium (3.4-5.0) mmol/L Chloride (98-107) mmol/L Carbon Dioxide (22-30) mmol/L Anion Gap (4-12) mmol/L BUN (7-17) mg/dL Creatinine (0.7-1.0) mg/dL Estim Creat Clear Calc ml/min Estimated GFR (59 - ) Glucose (65-110) mg/dL POC Capillary Glucose 177 H (65-105) mg/dl Lactic Acid (0.7-2.0) mmol/L Calcium (8.4-10.2) mg/dL Total Bilirubin (0.2-1.3) mg/dL AST (14-36) U/L ALT (6-35) U/L Alkaline Phosphatase (38-126) U/L Troponin I (0.000-0.034) ng/mL C-Reactive Protein (<1.0) mg/dL Total Protein (6.3-8.2) g/dL Albumin (3.5-5.1) g/dL Lipase (23-300) U/L Urine Color (Yellow) Urine Appearance (Clear) Urine pH (5.0-9.0) Ur Specific [place] (1.001-1.035) Urine Protein (Negative) mg/dL Urine Glucose (UA) (Negative) mg/dL Urine Ketones (Negative) mg/dL Ur Blood (Man) (Negative) Urine Nitrate (Negative) Urine Bilirubin (Negative) Urine Urobilinogen (<2.0) mg/dL Add Ur Microanalysis Leukocyte Esterase Rfl (Negative) BERTRAND/UL Urine RBC (0-2) /hpf Urine WBC (0-3) /hpf Ur Squamous Epith Cells (Few) /hpf Urine Bacteria /hpf Urine Casts <Rebeka Moore MD - Last Filed: 02/14/25 23:49> Imaging Data Radiologist's impression: ITS Impressions Chest X-Ray 02/14/25 13:57 IMPRESSION: No acute cardiopulmonary process. Chest/Abdomen/Pelvis CT 02/14/25 15:24 IMPRESSION: 1.6 cm right thyroid nodule, recommend outpatient thyroid ultrasound for further characterization. Small pericardial effusion. Cirrhosis with evidence of portal hypertension. Enlarged lobular uterus, likely secondary to fibroid disease. Large fat and fluid containing umbilical hernia. Moderate ascites. <SHERRIE Castaneda Last Filed: 02/14/25 22:53> ECG Data EKG #1: ECG completion date: 02/14/25 <SHERRIE Castaneda Last Filed: 02/14/25 22:53> EKG Interpretation: normal rate, sinus rhythm, no ST changes and normal QT <SHERRIE Castaneda Last Filed: 02/14/25 22:53> Critical Care Time Critical Care Time Critical Care Time: Yes <SHERRIE Castaneda Last Filed: 02/14/25 22:53> Total Critical Care Time: 35 <SHERRIE Castaneda Last Filed: 02/14/25 22:53> Discharge Plan Discharge Clinical Impression: Necrosis of toe, Acute UTI, Tachycardia <SHERRIE Castaneda Last Filed: 02/14/25 22:53> Patient Disposition: Acute Care Hospital <SHERRIE Castaneda Last Filed: 02/14/25 22:53> Condition: Serious <SHERRIE Castaneda Last Filed: 02/14/25 22:53> Patient Language: Portuguese <SHERRIE Castaneda Last Filed: 02/14/25 22:53> Prescriptions: No Action furosemide 80 mg tablet 80 mg PO BID Halie-Justo Rx 1-60-300 mg-mg-mcg tablet 1 tablet PO DAILY midodrine 2.5 mg tablet 2.5 mg PO BID Rx Instructions: do not give last dose of day after 6PM or within 4 hrs of bedtime fluticasone propionate 50 mcg/actuation blister with device 1 inh inhalation Q12H allopurinol 300 mg tablet 300 mg PO DAILY Qty: 90 1RF doxepin 25 mg capsule 25 mg PO QHS PRN (Reason: itching) Qty: 90 1RF gabapentin 300 mg capsule 300 mg PO HS Qty: 90 1RF cyclobenzaprine 10 mg tablet 10 mg PO HS PRN (Reason: Muscle Spasm) Qty: 45 1RF multivitamin Tablet 1 tablet PO DAILY calcium carbonate-vit D3-min 600 mg calcium- 400 unit tablet 1 tablet PO BID sevelamer HCl 800 mg tablet 1,600 mg PO DAILY Rx Instructions: with breakfast Mounjaro 5 mg/0.5 mL pen injector 5 mg subcut WEEKLY Qty: 6 1RF sevelamer carbonate 800 mg tablet 2,400 mg PO BIDAC Rx Instructions: before lunch and dinner Humulin N NPH Insulin KwikPen 100 unit/mL (3 mL) insulin pen 35 unit subcut HS MDD 40 Rx Instructions: before peritoneal dialysis omega-3 fatty acids [Fish Oil Concentrate] 1,000 mg capsule 1,000 mg PO DAILY Qty: 90 1RF insulin lispro [Humalog KwikPen Insulin] 100 unit/mL insulin pen See Rx Instructions subcut .COMPLEX MDD 80 Qty: 75 3RF Rx Instructions: 10 units before breakfast, 12 units before lunch if eating a big meal and 10 units before dinner add for high sugar before meals 150-200: 1 unit 201-250: 2 units 251-300: 3 units 301-350: 4 units 351-400: 5 units >401: 6 units subcutaneously; 10 units before breakfast, 12 units before lunch if eating a big meal and 10 units before dinner add for high sugar before meals 150-200: 1 unit 201-250: 2 units 251-300: 3 units 301-350: 4 units 351-400: 5 units >401: 6 units insulin degludec [Tresiba FlexTouch U-200] 200 unit/mL (3 mL) insulin pen 24 unit subcut DAILY Qty: 9 1RF hydrocodone-acetaminophen 5-325 mg tablet 1 tablet PO Q8H PRN (Reason: pain) Qty: 30 0RF <Abbie Brenner PA-C - Last Filed: 02/14/25 22:53> Follow-up/Referrals: Marlo Chavis APRN [Primary Care Provider] - <Abbie Brenner PA-C - Last Filed: 02/14/25 22:53> Quality HEART score for chest pain patients History: slightly suspicious <Abbie Brenner PA-C - Last Filed: 02/14/25 22:53> ECG: normal <Abbie Brenner PA-C - Last Filed: 02/14/25 22:53> Age: > 45 and < 65 years <Abbie Brenner PA-C - Last Filed: 02/14/25 22:53> Risk factors: > or = to 3 risk factors of atherosclerotic disease <Abbie Brenner PA-C - Last Filed: 02/14/25 22:53> Troponin: < or = to 1x normal limit <Abbie Brenner PA-C - Last Filed: 02/14/25 22:53> Heart score: 3 <Abbie Brenner PA-C - Last Filed: 02/14/25 22:53> 3 <Rebeka Moore MD - Last Filed: 02/14/25 23:49>
--- NOTE | 2025-02-14 15:55 | ECG_ITS ---
Test Date: 2025-02-14 15:59:56 Measurements Intervals [place] Rate: 120 P: 60 MN: 189 QRS: 87 QRSD: 99 T: 41 QT: 334 QTc: 473 Interpretive Statements SINUS TACHYCARDIA ABNORMAL RHYTHM ECG Compared to ECG 02/14/2025 13:27:59 Sinus rhythm no longer present Electronically Signed On 02-14-2025 18:07:48 CDT by Gui Guillen M.D.
[2025-02-14] MEDS: ONDANSETRON INJ 4 MG/2 ML VIAL IV PUSH (17:39)
[2025-02-14] MEDS: FAMOTIDINE 20 MG/2 ML VIAL IV PUSH (17:41)
[2025-02-14] MEDS: MORPHINE SULFATE (*CRX) 4 MG/ML INJ IV PUSH (17:44)
[2025-02-14 17:46] LABS: CRP 7.1 mg/dL (<1.0)
[2025-02-14] MEDS: SODIUM CHLORIDE 0.9% IV 500 ML 999 ML IV CONT (18:24)
[2025-02-14 19:03] LABS: Troponin I < 0.012 ng/mL (0.000-0.034)
[2025-02-14] MEDS: CEFEPIME 1 GM in SODIUM CHLORIDE 0.9% IV 50 ML 100 ML IVPB (19:43)
[2025-02-14 20:13] LABS: Add Urine Microscopic? YES; Appearance Urine Cloudy (Clear); Glucose Urine UA Negative (Negative); Leukocyte Esterase Ur 1+ LEU/UL (Negative); Need Manual Microscopic Reviewed; Nitrate Urine Negative (Negative); Non Pathogenic Casts 0-2; Specific Grav Ur 1.015 (1.001-1.035)
[2025-02-14] MEDS: metroNIDAZOLE 500 MG/ISO 100ML 500 MG/100 ML BAG 100 MG IVPB (20:17)
--- NOTE | 2025-02-14 20:18 | ECG_ITS ---
Test Date: 2025-02-14 20:50:57 Measurements Intervals [place] Rate: 128 P: 246 HI: 140 QRS: 89 QRSD: 94 T: 13 QT: 311 QTc: 455 Interpretive Statements SINUS TACHYCARDIA Compared to ECG 02/14/2025 15:59:56 NO SIGNIFICANT CHANGES Electronically Signed On 02-15-2025 12:37:56 CDT by Gui Guillen M.D.
[2025-02-14 20:23] LABS: Troponin I < 0.012 ng/mL (0.000-0.034)
--- NOTE | 2025-02-14 20:59 | PC.NURSE ---
Daughter/YAJAIRA Callaway [phone]
[2025-02-14] MEDS: VANCOMYCIN 2,000 MG/NS 500 ML 2,000 MG/500 ML BAG 250 MG IVPB (21:19)
[2025-02-14] MEDS: MIDODRINE HCL 2.5 MG TABLET PO (21:22)
== END 2025-02-14 22:38 | disposition short-term general hospital (02) ==
PROVIDERS: Emergency Medicine; Emergency Provider Physician Assistant; PCP Nurse Practitioner
DX: N39.0 Urinary tract infection, site not specified (principal); E11.52 Type 2 diabetes mellitus with diabetic peripheral angiopathy with gangrene; I96 Gangrene, not elsewhere classified; R00.0 Tachycardia, unspecified; E11.22 Type 2 diabetes mellitus with diabetic chronic kidney disease; N18.6 End stage renal disease; Z99.2 Dependence on renal dialysis; E55.9 Vitamin D deficiency, unspecified; Z89.611 Acquired absence of right leg above knee; Z89.412 Acquired absence of left great toe; R18.8 Other ascites; K42.9 Umbilical hernia without obstruction or gangrene; N85.2 Hypertrophy of uterus; K74.60 Unspecified cirrhosis of liver; E04.1 Nontoxic single thyroid nodule; J90 Pleural effusion, not elsewhere classified; Z79.85 Long-term (current) use of injectable non-insulin antidiabetic drugs; Z79.4 Long term (current) use of insulin; Z79.899 Other long term (current) drug therapy
CPT/HCPCS: 36415; 71046; 71250; 73630; 74176; 80053; 81001; 82948; 83605; 83690; 84484; 85025; 85610; 85652; 85730; 86140; 87040; 93005; 96365; 96366; 96367; 96368; 96375; 99285; A9270; J0692; J1836; J2270; J2405; J3373; J7040